=== PATIENT | male | born 1965 | race Caucasian/White ===

== ENCOUNTER → 2017-03-09 | Outpatient (CLI) | payer BC ==
--- NOTE | 2017-03-10 09:02 | CONS ---
DATE OF CONSULTATION: This 52-year-old male patient was initially referred to Dr. Tillman for loud snoring. The patient had upper ENT evaluation, was asked to take Flonase for nasal congestion and rhinitis. He was asked to stop Afrin as the patient was using it frequently. No other upper airway abnormality was noted and the patient was referred to me. On today's evaluation, the patient reports loud snoring that is non-positional. On a few occasions, he was told he stopped breathing at night, yet he does not wake up any major hypersomnia or sleepiness during the day. He has excessive teeth grinding and he wears a bite splint. He goes to bed around midnight, wakes up between 5 to 6 a.m. in the morning. On weekends, he wakes up at around 8 a.m. No family history of obstructive sleep apnea, no major hypersomnia or sleepiness during the day. No anxiety or panic attacks. No palpitations. No heartburn. No restlessness in the lower extremities. No sleepwalking or sleeptalking. No parasomnias. [place] score is at 6. PAST MEDICAL HISTORY: Seasonal rhinitis. Past surgical history is negative. Drug allergies are not known. Outpatient medication include ( ) on a p.r.n. basis. SOCIAL HISTORY: No smoking, no history of alcohol, no history of IV drugs. The patient has a desk job. No falling asleep while doing his day-to-day activities at work. FAMILY HISTORY: Negative for sleep apnea. REVIEW OF SYSTEMS: A 12-point review of systems was done. Positive findings were all mentioned above in the history of present illness. No insomnia. No nocturnal choking or gasping for air. No nocturia. No ( ) urgency. No memory problems, no concentration problems, no anxiety, no claustrophobia. No sexual dysfunction. BP is 138/90, pulse 54, respirations 14, temperature 97.9, saturation is 98% on room air. Weight is 179. Height 68 inches. Neck size 17 inches. [place] score is 6. BMI is 27.2. GENERAL APPEARANCE: Calm, comfortable. HEENT: Negative for JVD. There is no goiter, neck masses. Patient has a Mallampati class IV with slight overbite. LUNGS: Clear to auscultation. HEART: Sounds are regular rate and rhythm. Normal S1, S2. No S3. No S4. No murmurs. ABDOMEN: Soft and nontender. No organomegaly. EXTREMITIES: No edema. No cyanosis or clubbing. IMPRESSION: 1. Loud snoring. 2. Allergic rhinitis. 3. Questionable sleep apnea. PLAN: 1. Encourage using Flonase and Claritin on an as-needed basis regarding his symptoms of rhinitis. 2. Avoid alcoholic beverages at nighttime. 3. Sleep with head of the bed elevated at 30 degrees on the side. 4. Avoid sleep deprivation. 5. Proceed with a home sleep study looking for any significant sleep breathing disorder that may be in association with his snoring. 6. Will make treatment arrangements if obstructive sleep apnea is identified in this patient. He is interested in treatment at this point, especially if he was found to be having a positive test.
== END | disposition home or self-care (01) ==
LOC: SLEEP 13:54
PROVIDERS: ATTEND Internal Medicine Critical Care Medicine
DX: R06.83 Snoring (principal); J30.9 Allergic rhinitis, unspecified
CPT/HCPCS: 99211

== ENCOUNTER 2021-04-25 09:51 | Day surgery (SDC) | payer BC ==
[2021-04-24 08:46] VITALS: BMI 27.3
[~2021-04-25 09:51] MED LIST: LACTATED RINGERS 1,000 ML IV SCH
[2021-04-25 10:22] VITALS: TEMP 97.2
[2021-04-25] MEDS ORDERED: PROPOFOL 10 MG/ML 20 ML VIAL IV ONE (11:00)
--- NOTE | 2021-04-25 11:18 | P.PCN ---
Date of Procedure: 04/25/21 Procedure(s) Performed: BRIEF HISTORY: Patient is a 56-year-old pleasant male scheduled for an elective colonoscopy as a part of screening for colorectal neoplasia. PROCEDURE PERFORMED: Colonoscopy with snare polypectomy. PREOPERATIVE DIAGNOSIS: Screening for colon cancer. IV sedation per Anesthesia. PROCEDURE: After informed consent was obtained, the patient, was brought into the endoscopy unit. IV sedation was administered by Anesthesia under continuous monitoring. Digital rectal examination was normal. Initially the Olympus CF-160 flexible video colonoscope was then inserted in the rectum, gradually advanced into the cecum without any difficulty. Careful examination was performed as the scope was gradually being withdrawn. Ileocecal valve and the appendiceal orifice were visualized and appeared normal. Prep was excellent. Mucosa of the cecum, appeared normal. In the ascending colon there was a 5 mm flat polyp removed by snare polypectomy. In the hepatic flexure there was a 1 cm broad-based polyp removed by snare polypectomy. Rest of the ascending colon, transverse colon, descending colon, sigmoid colon, and rectum appeared normal. Retroflexion was performed in the rectum and no lesions were seen. The patient tolerated the procedure well. IMPRESSION: 1 cm broad-based based hepatic flexure polyp status post polypectomy 5 mm ascending colon polyp status post polypectomy RECOMMENDATIONS: Findings of this examination were discussed with the patient surveillance his family. He was advised to follow with the biopsy results and if the biopsy shows an adenoma he can have a repeat colonoscopy in 3-5 years
[2021-04-25 11:33] VITALS: BP 142/89; PULSE 61; RESP 17
== END 2021-04-25 11:49 | disposition home or self-care (01) ==
LOC: ORWHC2ENDO 09:51
PROVIDERS: ATTEND Internal Medicine Gastroenterology
DX: Z12.11 Encounter for screening for malignant neoplasm of colon (principal); D12.2 Benign neoplasm of ascending colon; D12.3 Benign neoplasm of transverse colon; I10 Essential (primary) hypertension; Z79.899 Other long term (current) drug therapy
CPT/HCPCS: 88305; 45385; J2704

== ENCOUNTER 2021-12-17 14:58 | Inpatient (IN) | payer BC ==
[2021-12-17] MEDS ORDERED: diphenhydrAMINE 50 MG/ML 1 ML VIAL IVP STA (15:20)
[2021-12-17] MEDS ORDERED: MORPHINE SULFATE 4 MG/ML SYRINGE IV STA (15:20)
[2021-12-17] MEDS ORDERED: ONDANSETRON 4 MG/2 ML VIAL IVP STA (15:20)
[2021-12-17] MEDS ORDERED: ASPIRIN 81 MG PO STA (15:20)
[2021-12-17] MEDS ORDERED: SODIUM CHLORIDE 0.9% 1,000 ML IV STA (15:20)
[2021-12-17] MEDS ORDERED: MAG HYDROX/AL HYDROX/SIMETH 30 ML CUP PO STA (15:21)
[2021-12-17] MEDS ORDERED: FAMOTIDINE 20 MG/2 ML VIAL IV STA (15:21)
--- NOTE | 2021-12-17 15:34 | ED ---
General Adult HPI - General Chief complaint: Chest Pain Stated complaint: chest pain Time Seen by Provider: 12/17/21 15:05 Source: patient, RN notes reviewed, old records reviewed Mode of arrival: ambulatory Limitations: no limitations - History of Present Illness Initial comments: Patient's a 56-year-old male with past medical history remarkable for hy pertension who presents to emergency Department complaining of recurrence of epigastric abdominal pain and inferior substernal chest pain over the last 1-2 days. Also states he believes he may be constipated. States it somewhat symptoms last week and was admitted overnight Wednesday and Wednesday (it is currently Wednesday) and outside hospital where he received a heart catheter was cleaned. There were no blockages. No intervention was done. He said "they told me I did not have a heart attack.". He states that when he was discharged from the hospital, he was completely symptomatic, however over the last 1-2 days has been having worsening epigastric abdominal discomfort, is complaining of s ome constipation, and states that the pain radiates just above his epigastric area to his inferior sternum. He does not believe that it radiates to the left. Describes the pain as sharp, achy. No known palliative factors. States it is worse with laying down. Denies any shortness of breath, cough, fevers, chills. States he is constipated, was taking some stool softeners and had a bowel moveme nt 2 days ago. It was a smaller area and quantity. He has been eating. No change in appetite. No abdominal discomfort otherwise. Denies any history of drinking drug abuse. Denies any urinary complaints. Has no other acute complaints at this time. - Related Data Home Medications Medication Instructions Recorded Confirmed amLODIPine [Norvasc] 5 mg PO HS 04/24/21 12/17/21 Aspirin 81 mg PO DAILY 12/17/21 12/17/21 Atorvastatin [Lipitor] 80 mg PO HS 12/17/21 12/17/21 Nitroglycerin Sl Tabs [Nitrostat] 0.4 mg SUBLINGUAL Q5M PRN 12/17/21 12/17/21 Polyethylene Glycol 3350 [Miralax] 17 gm PO DAILY 12/17/21 12/17/21 Allergies Allergy/AdvReac Type Severity Reaction Status Date / Time No Known Allergies Allergy Verified 02/02/22 16:29 Review of Systems ROS Statement: Those systems with pertinent positive or pertinent negative responses have been documented in the HPI. Review of Systems: CONST: Denies fever EYES: Denies blurry vision ENT: Denies nasal congestion C/V: Endorses chest pain RESP: Denies shortness of breath GI: Endorses abdominal pain : Denies dysuria SKIN: Denies rash. MSK: Denies joint pain. NEURO: Denies headache ROS Other: All systems not noted in ROS Statement are negative. Past Medical History Past Medical History: Hypertension Additional Past Medical History / Comment(s): seasonal allergies History of Any Multi-Drug Resistant Organisms: None Reported Past Surgical History: Heart Catheterization, Hernia Repair Past Anesthesia/Blood Transfusion Reactions: No Reported Reaction Past Psychological History: No Psychological Hx Reported Smoking Status: Never smoker Past Alcohol Use History: Occasional Past Drug Use History: None Reported General Exam - General Exam Comments Initial Comments: General: Appears in no acute distress. HEAD: Normal with no signs of head trauma. EYES: PERRLA, EOMI, conjunctiva normal, no discharge. Mild scleral icterus. ENT: Hearing grossly intact, normal oropharynx. RESPIRATORY: Clear breath sounds bilaterally. No wheezes, rales, or rhonchi. C/V: Regular rate and rhythm. S1 and S2 auscultated, no edema, peripheral pulses 2+ and intact throughout ABD: Abdomen is soft, nondistended. Patient has epigastric and RUQ abdominal pain on palpation. It does radiate substernally. No guarding. No rebound tenderness. No peritoneal signs. No CVA tenderness to percussion. EXT: Normal range of motion, no obvious deformity SKIN: No rashes or lesions observed on exposed skin. NEURO: Alert and oriented 4. No focal deficits. Limitations: no limitations Course Vital Signs 12/17/21 12/17/21 12/17/21 14:59 16:03 16:43 Temperature 97.6 F Pulse Rate 70 73 Pulse Rate [ 76 Sitting Pulse Oximetery] Respiratory 18 18 Rate Blood Pressure 149/93 126/83 O2 Sat by Pulse 98 99 Oximetry Medical Decision Making - Medical Decision Making Based on the patient's presentation and physical exam, I'm concerned regarding his chest pain. However he does have paperwork with the cleaning cardiac cath report from 5 days ago. Despite the EKG findings showing a left bundle branch block, there is unknown chronicity. His pain seems to primarily be epigastric in nature. With a history of the cleaning cath, I'll wait to obtain one work prior to calling cardiology. We will attempt to obtain a copy of his EKG from the outside hospital at this time. We'll also obtain an abdominal laboratory workup including CT and pelvis with contrast. He was in agreement this plan. Upon examining his notes, he did receive a colonoscopy middle of last year and it showed adenomas. I would like to obtain a CT abdomen and pelvis to further evaluate. He'll be symptomatically treated with 1 L fluid bolus as well as IV analgesia. He'll receive an aspirin. Patient was in agreement this plan.The patient's pain seems to be more epigastric abdominal pain in nature. Do not believe that it is chest pain. Patient's EKG revealed a left bundle-branch block as described. He has to recent clean cardiac cath 5 days ago. We did obtain a repeat EKG however an hour later, but was unchanged. Chest x-ray revealed no acute cardio pulmonary process. Laboratory studies were remarkable for a mild leukocytosis of 12. She does have signs of biliary obstruction, with total bilirubin of 3.1. Conjugated is 0.7 and unconjugated is 1.5, both elevated. He is mildly elevated AST and ALT of 120 300 respectively. Alk phos is elevated to 156. Initial troponin is negative and undetectable. Remainder the labs are unremarkable. Negative bilirubin in his urine. Patient's CT was remarkable for showing signs of colitis in the bowel as well as acute cholecystitis. Right upper quadrant ultrasound supported the CT imaging, suggestive of acute cholecystitis with multiple gallstones and wall thickening gallbladder. Ducts are not dilated. On reevaluation, patient's pain is improved. Is now isolated to the epigastric and right upper quadrant region. I discussed results with remaining extremity like to admit him to the hospital for further evaluation. He was in agreement this plan. I spoke with the admitting team under Dr. Marks who accepted the patient. I consulted Dr. Short of gastroenterology who is in agreement with the plan. I also consulted Dr. Haney of Gen. surgery who was in agreement with the plan. Blood cultures were obtained and patient was started on IV Flagyl and Ruben ephin. Patient was therefore admitted in stable condition. - Lab Data Result diagrams: 12/17/21 15:32 12/17/21 15:32 Lab Results 12/17/21 12/17/21 12/17/21 Range/Units 15:32 15:32 15:32 WBC 12.0 H (3.8-10.6) k/uL RBC 4.82 (4.30-5.90) m/uL Hgb 14.1 (13.0-17.5) gm/dL Hct 43.2 (39.0-53.0) % MCV 89.6 (80.0-100.0) fL MCH 29.3 (25.0-35.0) pg MCHC 32.7 (31.0-37.0) g/dL RDW 12.1 (11.5-15.5) % Plt Count 290 (150-450) k/uL MPV 7.5 Neutrophils % 88 % Lymphocytes % 7 % Monocytes % 4 % Eosinophils % 1 % Basophils % 0 % Neutrophils # 10.6 H (1.3-7.7) k/uL Lymphocytes # 0.8 L (1.0-4.8) k/uL Monocytes # 0.5 (0-1.0) k/uL Eosinophils # 0.1 (0-0.7) k/uL Basophils # 0.0 (0-0.2) k/uL PT 10.0 (9.0-12.0) sec INR 0.9 (<1.2) APTT 24.0 (22.0-30.0) sec Sodium 136 L (137-145) mmol/L Potassium 5.1 (3.5-5.1) mmol/L Chloride 100 (98-107) mmol/L Carbon Dioxide 27 (22-30) mmol/L Anion Gap 9 mmol/L BUN 16 (9-20) mg/dL Creatinine 0.76 (0.66-1.25) mg/dL Est GFR (CKD-EPI)AfAm >90 (>60 ml/min/1.73 sqM) Est GFR (CKD-EPI)NonAf >90 (>60 ml/min/1.73 sqM) Glucose 137 H (74-99) mg/dL Calcium 9.4 (8.4-10.2) mg/dL Magnesium 2.2 (1.6-2.3) mg/dL Total Bilirubin 3.1 H (0.2-1.3) mg/dL Conjugated Bilirubin (0.0-0.3) mg/dL Unconjugated Bilirubin (0.0-1.1) mg/dL Delta Bilirubin (0.0-0.2) mg/dL AST 123 H (17-59) U/L ALT 100 H (4-49) U/L Alkaline Phosphatase 156 H (38-126) U/L Troponin I (0.000-0.034) ng/mL Total Protein 7.6 (6.3-8.2) g/dL Albumin 4.4 (3.5-5.0) g/dL Amylase 57 (30-110) U/L Lipase 101 (23-300) U/L Urine Color Urine Appearance (Clear) Urine pH (5.0-8.0) Ur Specific [place] (1.001-1.035) Urine Protein (Negative) Urine Glucose (UA) (Negative) Urine Ketones (Negative) Urine Blood (Negative) Urine Nitrite (Negative) Urine Bilirubin (Negative) Urine Urobilinogen (<2.0) mg/dL Ur Leukocyte Esterase (Negative) 12/17/21 12/17/21 12/17/21 Range/Units 15:32 15:32 16:24 WBC (3.8-10.6) k/uL RBC (4.30-5.90) m/uL Hgb (13.0-17.5) gm/dL Hct (39.0-53.0) % MCV (80.0-100.0) fL MCH (25.0-35.0) pg MCHC (31.0-37.0) g/dL RDW (11.5-15.5) % Plt Count (150-450) k/uL MPV Neutrophils % % Lymphocytes % % Monocytes % % Eosinophils % % Basophils % % Neutrophils # (1.3-7.7) k/uL Lymphocytes # (1.0-4.8) k/uL Monocytes # (0-1.0) k/uL Eosinophils # (0-0.7) k/uL Basophils # (0-0.2) k/uL PT (9.0-12.0) sec INR (<1.2) APTT (22.0-30.0) sec Sodium (137-145) mmol/L Potassium (3.5-5.1) mmol/L Chloride (98-107) mmol/L Carbon Dioxide (22-30) mmol/L Anion Gap mmol/L BUN (9-20) mg/dL Creatinine (0.66-1.25) mg/dL Est GFR (CKD-EPI)AfAm (>60 ml/min/1.73 sqM) Est GFR (CKD-EPI)NonAf (>60 ml/min/1.73 sqM) Glucose (74-99) mg/dL Calcium (8.4-10.2) mg/dL Magnesium (1.6-2.3) mg/dL Total Bilirubin 3.1 H (0.2-1.3) mg/dL Conjugated Bilirubin 0.7 H (0.0-0.3) mg/dL Unconjugated Bilirubin 1.5 H (0.0-1.1) mg/dL Delta Bilirubin 0.9 H (0.0-0.2) mg/dL AST (17-59) U/L ALT (4-49) U/L Alkaline Phosphatase (38-126) U/L Troponin I <0.012 (0.000-0.034) ng/mL Total Protein (6.3-8.2) g/dL Albumin (3.5-5.0) g/dL Amylase (30-110) U/L Lipase (23-300) U/L Urine Color Yellow Urine Appearance Clear (Clear) Urine pH 6.0 (5.0-8.0) Ur Specific [place] 1.022 (1.001-1.035) Urine Protein Trace H (Negative) Urine Glucose (UA) Negative (Negative) Urine Ketones Negative (Negative) Urine Blood Negative (Negative) Urine Nitrite Negative (Negative) Urine Bilirubin Negative (Negative) Urine Urobilinogen <2.0 (<2.0) mg/dL Ur Leukocyte Esterase Negative (Negative) - EKG Data -: EKG Interpreted by Me EKG Comments: 12-lead Electrocardiogram Interpretation Note EKG was reviewed and interpreted by myself. 12-lead ECG performed at 1512 is interpreted by me as revealing normal sinus rhythm with a left bundle branch block at a rate of 63 beats per minute. Pinnacle is normal. IN interval is 176 ms, QRS duration is 172 ms, QTc is 501 ms.. There is left bundle branch block pathology, with J-point elevations in V1 and V2 and V3. There are T-wave inversions in lead aVL.. R wave progression across the precordium is delayed. By my interpretation this EKG is non-diagnostic for acute ischemia. repeat ekg was obtained. 12-lead Electrocardiogram Interpretation Note EKG was reviewed and interpreted by myself. 12-lead ECG performed at 1640 is interpreted by me as revealing normal sinus rhythm with a left bundle branch block at a rate of 67 beats per minute. Pinnacle is normal. IN interval is 176 ms. QRS durations 168ms, QTc is 494 ms.. There are repeated J point elevations in leads V1 through V3 which are seen on the prior EKG without any dynamic EKG changes.. R wave progression across the precordium remains delayed.. By my interpretation this EKG is non-diagnostic for acute ischemia. Disposition Clinical Impression: Hyperbilirubinemia, Cholecystitis, Nausea and vomiting Disposition: ADMITTED IP TO THIS HOSP Condition: Stable
[2021-12-17 15:41] LABS: Basophils % (A) 0 %; Eosinophils # (A) 0.1 k/uL (0-0.7); Eosinophils % (A) 1 %; HCT 43.2 % (39.0-53.0); HGB 14.1 gm/dL (13.0-17.5); Lymphocytes # (A) 0.8 k/uL (1.0-4.8); Lymphocytes % (A) 7 %; MCH 29.3 pg (25.0-35.0); MCHC 32.7 g/dL (31.0-37.0); MCV 89.6 fL (80.0-100.0); Mean Platelet Volume 7.5; Monocytes # (A) 0.5 k/uL (0-1.0); Monocytes % (A) 4 %; Neutrophils # (A) 10.6 k/uL (1.3-7.7); Neutrophils % (A) 88 %; Platelet Count 290 k/uL (150-450); RBC 4.82 m/uL (4.30-5.90); RDW 12.1 % (11.5-15.5)
[2021-12-17 15:53] LABS: ALT 100 U/L (4-49); AST 123 U/L (17-59); African American GFR (CKD) >90 (>60 ml/min/1.73 sqM); Albumin 4.4 g/dL (3.5-5.0); Alkaline Phosphatase 156 U/L (38-126); Amylase 57 U/L (30-110); Anion Gap 9 mmol/L; Blood Urea Nitrogen 16 mg/dL (9-20); Calcium 9.4 mg/dL (8.4-10.2); Carbon Dioxide 27 mmol/L (22-30); Chloride 100 mmol/L (98-107); Glucose 137 mg/dL (74-99); Lipase 101 U/L (23-300); Magnesium 2.2 mg/dL (1.6-2.3); Non-African American GFR(CKD) >90 (>60 ml/min/1.73 sqM); Sodium 136 mmol/L (137-145); Total Bilirubin 3.1 mg/dL (0.2-1.3); Total Protein 7.6 g/dL (6.3-8.2)
[2021-12-17 15:54] LABS: Potassium 5.1 mmol/L (3.5-5.1)
[2021-12-17 15:57] LABS: INR 0.9 (<1.2)
[2021-12-17 16:07] LABS: Appearance,Urine Clear (Clear); Bilirubin,Urine Negative (Negative); Blood,Urine Negative (Negative); Color,Urine Yellow; Glucose,Urine (UA) Negative (Negative); Ketones,Urine Negative (Negative); Leukocyte Esterase,Urine Negative (Negative); Nitrite,Urine Negative (Negative); Protein,Urine Trace (Negative); Specific Gravity,Urine 1.022 (1.001-1.035); Urobilinogen,Urine <2.0 mg/dL (<2.0)
[2021-12-17 16:37] LABS: Bilirubin, Conjugated 0.7 mg/dL (0.0-0.3); Bilirubin, Delta 0.9 mg/dL (0.0-0.2); Bilirubin,Unconjugated 1.5 mg/dL (0.0-1.1); Total Bilirubin 3.1 mg/dL (0.2-1.3)
--- NOTE | 2021-12-17 16:37 | CT ---
EXAMINATION TYPE: CT abdomen pelvis w con DATE OF EXAM: 12/17/2021 COMPARISON: NONE HISTORY: 56-year-old male abdominal pain, acute, nonlocalized. Epigastric pain. TECHNIQUE: Contiguous axial scanning of the abdomen and pelvis following administration of 100 ml Iso karli 300 IV contrast. Delayed images through the kidneys and coronal/sagittal reconstructions perform ed. CT DLP: 939.9 mGycm Automated exposure control for dose reduction was used. FINDINGS: Heart limits of normal in size without pericardial effusion. Lung bases clear without pleural effusio n. No focal liver lesion or biliary ductal dilatation. Portal venous system is patent. Gallbladder is borderline hydropic measuring 4.0 cm wide. There may be mild wall thickening. Cholelit hiasis is present. No surrounding inflammatory fat stranding. Adrenal glands, kidneys, spleen, and pancreas within normal limits. There appears to be some distortion and wall thickening along the gastric body with mucosal hyperemia . Prominent fluid in the stomach and left-sided jejunal loops some of which are distended to the uppe r limits of normal at 2.9 cm. Duodenum contains fluid and is distended to 3.4 cm, coronal image 49. Scattered liquid stool within the left side of the colon. Mild stool within the right side of the col on. Normal appendix. Segmental mild wall thickening sigmoid colon. Tiny fatty umbilical hernia. No mesenteric or retroperitoneal lymphadenopathy. No free air or free fluid. Mild circumferential bladder wall thickening. Prostate gland measures 4.4 cm wide, mildly enlarged. N o abnormal fluid collection in the pelvis or pelvic lymphadenopathy. Bones: Mild degenerative change of both hips. Facet arthropathy mid to lower lumbar spine. IMPRESSION: 1. FOLD THICKENING AND HYPEREMIA AND SOME DISTORTION ALONG THE BODY OF THE STOMACH. NUMEROUS PROMINEN T FLUID-FILLED SMALL BOWEL LOOPS THROUGHOUT THE LEFT SIDE OF THE ABDOMEN WITH DISTENTION UP TO 3.4 CM . CORRELATE FOR GASTROENTERITIS. 2. SOME LIQUID STOOL IN THE LEFT SIDE OF THE COLON AND MILD SEGMENTAL WALL THICKENING OF THE SIGMOID COLON. THERE MAY BE A CONCURRENT MILD NONSPECIFIC COLITIS. 3. BORDERLINE HYDROPIC GALLBLADDER WITH POSSIBLE MILD WALL THICKENING. UNDERLYING CHOLELITHIASIS. IF THERE IS RIGHT UPPER QUADRANT PAIN OR CONCERN FOR EARLY ACUTE CHOLECYSTITIS, HIDA SCAN CAN BE PERFORM ED. 4. MILD CIRCUMFERENTIAL BLADDER WALL THICKENING COULD REPRESENT CHRONIC BLADDER WALL HYPERTROPHY OR C YSTITIS. CLINICALLY CORRELATE.
[2021-12-17] MEDS ORDERED: metroNIDAZOLE-NS PMX 500 MG in SALINE 1 100ML.BAG IVPB STA (16:48)
--- NOTE | 2021-12-17 16:51 | XR ---
EXAMINATION TYPE: XR chest 2V DATE OF EXAM: 12/17/2021 COMPARISON: NONE HISTORY: Chest pain TECHNIQUE: 2 views FINDINGS: Heart and mediastinum are normal. Lungs are clear. Diaphragm is normal. Bony thorax appears normal. There are chest leads. IMPRESSION: Normal chest.
[2021-12-17] MEDS ORDERED: NALOXONE 0.4 MG/ML 1 ML VIAL IV PRN (16:58)
[2021-12-17] MEDS ORDERED: ONDANSETRON 4 MG/2 ML VIAL IVP PRN (16:58)
[2021-12-17] MEDS ORDERED: KETOROLAC 15 MG/ML 1 ML VIAL IVP PRN (16:58)
--- NOTE | 2021-12-17 17:18 | US ---
EXAMINATION TYPE: US gallbladder DATE OF EXAM: 12/17/2021 COMPARISON: CT same day CLINICAL HISTORY: RUQ pain, nausea. RUQ pain and nausea EXAM MEASUREMENTS: Liver Length: 16.8 cm Gallbladder Wall: 0.2 cm CBD: 0.4 cm Right Kidney: 11.7 x 5.6 x 6.2 cm Pancreas: visualized portions wnl, limited by overlying midline bowel gas Liver: wnl Gallbladder: borderline hydropic, cholelithiasis Evidence for sonographic Aparicio's sign: no CBD: wnl Right Kidney: wnl IMPRESSION: Mild gallbladder wall thickening. Multiple gallstones. This is consistent with acute and chronic chol ecystitis. Gallbladder large and measures 9 x 3.5 cm. No dilated ducts.
[2021-12-17] MEDS: SODIUM CHLORIDE 0.9% 1,000 ML IV SCH (17:45)
[2021-12-17] MEDS: amLODIPine 5 MG TAB PO SCH (20:24)
[2021-12-17] MEDS ORDERED: ATORVASTATIN 80 MG TAB PO SCH (21:00)
[2021-12-18] MEDS: HEPARIN SODIUM,PORCINE/PF 5,000 UNIT/0.5 ML SYRINGE SQ SCH ×5 (00:33→23:59)
[2021-12-18] MEDS: metroNIDAZOLE-NS PMX 500 MG in SALINE 1 100ML.BAG IVPB SCH ×4 (02:19→23:59)
[2021-12-18] MEDS: KETOROLAC 30 MG/ML 1 ML VIAL IVP PRN ×3 (02:35→18:20)
[2021-12-18 04:00] LABS: Basophils % (A) 0 %; Eosinophils # (A) 0.1 k/uL (0-0.7); Eosinophils % (A) 1 %; HCT 41.2 % (39.0-53.0); HGB 13.4 gm/dL (13.0-17.5); Lymphocytes # (A) 1.2 k/uL (1.0-4.8); Lymphocytes % (A) 14 %; MCH 29.5 pg (25.0-35.0); MCHC 32.4 g/dL (31.0-37.0); MCV 91.1 fL (80.0-100.0); Mean Platelet Volume 7.5; Monocytes # (A) 0.8 k/uL (0-1.0); Monocytes % (A) 10 %; Neutrophils # (A) 6.2 k/uL (1.3-7.7); Neutrophils % (A) 74 %; Platelet Count 255 k/uL (150-450); RBC 4.53 m/uL (4.30-5.90); RDW 12.3 % (11.5-15.5); WBC 8.4 k/uL (3.8-10.6)
[2021-12-18 04:14] LABS: ALT 135 U/L (4-49); AST 127 U/L (17-59); African American GFR (CKD) >90 (>60 ml/min/1.73 sqM); Albumin 3.5 g/dL (3.5-5.0); Albumin/Globulin Ratio 1.3; Alkaline Phosphatase 170 U/L (38-126); Anion Gap 4 mmol/L; Blood Urea Nitrogen 11 mg/dL (9-20); Calcium 8.6 mg/dL (8.4-10.2); Carbon Dioxide 27 mmol/L (22-30); Chloride 106 mmol/L (98-107); Globulin 2.8 g/dL; Glucose 114 mg/dL (74-99); Non-African American GFR(CKD) >90 (>60 ml/min/1.73 sqM); Potassium 3.9 mmol/L (3.5-5.1); Sodium 137 mmol/L (137-145); Total Bilirubin 3.7 mg/dL (0.2-1.3); Total Protein 6.3 g/dL (6.3-8.2)
[2021-12-18] MEDS: SODIUM CHLORIDE 0.9% 1,000 ML IV SCH ×3 (05:08→20:06)
[2021-12-18] MEDS: ASPIRIN 81 MG PO SCH (07:20)
[2021-12-18 10:05] LABS: Amylase 65 U/L (30-110); Lipase 229 U/L (23-300)
--- NOTE | 2021-12-18 11:56 | P.GSCN ---
History of Present Illness Consult date: 12/18/21 History of present illness: 56-year-old male presents to the emergency department with complaints of severe epigastric and right upper quadrant abdominal pain. He states that this has been going on and off for about a week. Previously, approximately 1 week ago he was in [facility] and did have an admission at that time. He states that he had a full cardiac workup with cardiac catheterization and no acute findings were noted. He was discharged with plan to follow up with his primary care physician. He states that since that time, he began having additional di scomfort. On workup in the emergency department, he was found to have elevated bilirubin 3.1 that has since further elevated to 3.7. He also was noted to have cholelithiasis on both CT and ultrasound of the abdomen. He currently denies any nausea or vomiting. States abdominal pain has somewhat improved since being admitted. No fevers, chills, chest pain or shortness of breath. Past Medical History Past Medical History: Hypertension Additional Past Medical History / Comment(s): seasonal allergies History of Any Multi-Drug Resistant Organisms: None Reported Past Surgical History: Heart Catheterization, Hernia Repair Past Anesthesia/Blood Transfusion Reactions: No Reported Reaction Past Psychological History: No Psychological Hx Reported Smoking Status: Never smoker Past Alcohol Use History: Occasional Past Drug Use History: None Reported Medications and Allergies Home Medications Medication Instructions Recorded Confirmed Type amLODIPine [Norvasc] 5 mg PO HS 04/24/21 12/17/21 History Aspirin 81 mg PO DAILY 12/17/21 12/17/21 History Atorvastatin [Lipitor] 80 mg PO HS 12/17/21 12/17/21 History Nitroglycerin Sl Tabs [Nitrostat] 0.4 mg SUBLINGUAL Q5M PRN 12/17/21 12/17/21 History Polyethylene Glycol 3350 [Miralax] 17 gm PO DAILY 12/17/21 12/17/21 History Allergies Allergy/AdvReac Type Severity Reaction Status Date / Time No Known Allergies Allergy Verified 12/17/21 16:29 Surgical - Exam Osteopathic Statement: *. No significant issues noted on an osteopathic structural exam other than those noted in the History and Physical/Consult. Vital Signs Temp Pulse Resp BP Pulse Ox 97.6 F 70 18 149/93 98 12/17/21 14:59 12/17/21 14:59 12/17/21 14:59 12/17/21 14:59 12/17/21 14:59 - General no distress - Eyes normal ocular movement - ENT no hearing loss - Neck trachea midline - Respiratory normal respiratory effort - Abdomen Soft, some mild tenderness to palpation in the right upper quadrant, non distended, no rebound, guarding - Psychiatric oriented to time, oriented to person, oriented to place Results - Labs 12/18/21 03:39 12/18/21 03:39 Abnormal Lab Results - Last 24 Hours (Table) 12/17/21 12/17/21 12/17/21 Range/Units 15:32 15:32 15:32 WBC 12.0 H (3.8-10.6) k/uL Neutrophils # 10.6 H (1.3-7.7) k/uL Lymphocytes # 0.8 L (1.0-4.8) k/uL Sodium 136 L (137-145) mmol/L Glucose 137 H (74-99) mg/dL Total Bilirubin 3.1 H (0.2-1.3) mg/dL Conjugated Bilirubin (0.0-0.3) mg/dL Unconjugated Bilirubin (0.0-1.1) mg/dL Delta Bilirubin (0.0-0.2) mg/dL AST 123 H (17-59) U/L ALT 100 H (4-49) U/L Alkaline Phosphatase 156 H (38-126) U/L Urine Protein Trace H (Negative) 12/17/21 12/18/21 Range/Units 16:24 03:39 WBC (3.8-10.6) k/uL Neutrophils # (1.3-7.7) k/uL Lymphocytes # (1.0-4.8) k/uL Sodium (137-145) mmol/L Glucose 114 H (74-99) mg/dL Total Bilirubin 3.1 H 3.7 H (0.2-1.3) mg/dL Conjugated Bilirubin 0.7 H (0.0-0.3) mg/dL Unconjugated Bilirubin 1.5 H (0.0-1.1) mg/dL Delta Bilirubin 0.9 H (0.0-0.2) mg/dL AST 127 H (17-59) U/L ALT 135 H (4-49) U/L Alkaline Phosphatase 170 H (38-126) U/L Urine Protein (Negative) Diabetes panel 12/17/21 12/18/21 Range/Units 15:32 03:39 Sodium 136 L 137 (137-145) mmol/L Potassium 5.1 3.9 (3.5-5.1) mmol/L Chloride 100 106 (98-107) mmol/L Carbon Dioxide 27 27 (22-30) mmol/L BUN 16 11 (9-20) mg/dL Creatinine 0.76 0.75 (0.66-1.25) mg/dL Glucose 137 H 114 H (74-99) mg/dL Calcium 9.4 8.6 (8.4-10.2) mg/dL AST 123 H 127 H (17-59) U/L ALT 100 H 135 H (4-49) U/L Alkaline Phosphatase 156 H 170 H (38-126) U/L Total Protein 7.6 6.3 (6.3-8.2) g/dL Albumin 4.4 3.5 (3.5-5.0) g/dL Calcium panel 12/17/21 12/18/21 Range/Units 15:32 03:39 Calcium 9.4 8.6 (8.4-10.2) mg/dL Albumin 4.4 3.5 (3.5-5.0) g/dL Pituitary panel 12/17/21 12/18/21 Range/Units 15:32 03:39 Sodium 136 L 137 (137-145) mmol/L Potassium 5.1 3.9 (3.5-5.1) mmol/L Chloride 100 106 (98-107) mmol/L Carbon Dioxide 27 27 (22-30) mmol/L BUN 16 11 (9-20) mg/dL Creatinine 0.76 0.75 (0.66-1.25) mg/dL Glucose 137 H 114 H (74-99) mg/dL Calcium 9.4 8.6 (8.4-10.2) mg/dL Adrenal panel 12/17/21 12/17/21 12/18/21 Range/Units 15:32 16:24 03:39 Sodium 136 L 137 (137-145) mmol/L Potassium 5.1 3.9 (3.5-5.1) mmol/L Chloride 100 106 (98-107) mmol/L Carbon Dioxide 27 27 (22-30) mmol/L BUN 16 11 (9-20) mg/dL Creatinine 0.76 0.75 (0.66-1.25) mg/dL Glucose 137 H 114 H (74-99) mg/dL Calcium 9.4 8.6 (8.4-10.2) mg/dL Total Bilirubin 3.1 H 3.1 H 3.7 H (0.2-1.3) mg/dL AST 123 H 127 H (17-59) U/L ALT 100 H 135 H (4-49) U/L Alkaline Phosphatase 156 H 170 H (38-126) U/L Total Protein 7.6 6.3 (6.3-8.2) g/dL Albumin 4.4 3.5 (3.5-5.0) g/dL Assessment and Plan Plan: 56-year-old male with cholelithiasis, concern for cholecystitis and possibility of choledocholithiasis. Bilirubin is elevated from 3.1-3.7 today. Gastroenterology consult has been placed and MRCP is pending at this time. I would recommend keeping the patient nothing by mouth and continuing IV antibiotics for cholecystitis. Based on workup for choledocholithiasis, plan of care will be determined. We'll continue to follow and make surgical recommendations based on the patient's critical progress and findings from MRCP.
[2021-12-18] MEDS ORDERED: ACETAMINOPHEN TAB 325 MG TAB PO PRN (13:19)
--- NOTE | 2021-12-18 13:27 | P.HPIM ---
History of Present Illness H&P Date: 12/18/21 History of present illness 56 years old male with past medical history of hyperlipidemia, h ypertension comes in with significant epigastric pain for the past 1 week. Patient was admitted at [facility] [place] for chest pain 1 week ago. Patient underwent heart cath which is normal. He continued to have abdominal pain which was initially epigastric but then radiated to the right upper quadrant pain. Patient denies any nausea or vomiting. He has noticed his urine to be dark yellow and his eyes turning yellow. Since the pain did not improve patient decided to come to the hospital to vitals are reviewed patient's afebrile pulse 70 respiratory rate 18 blood pressure 149/93. EKG revealed only had left bundle branch block that appeared chronic. Labs reviewed patient was found to have mild leukocytosis hemoglobin of 14 sodium 136 potassium 5.1 BUN 16 creatinine 0.76 total bilirubin of 3.1 conjugated 0.7 unconjugated 1.5 AST ALT mildly elevated at 120 and 300 respectively alk phos is elevated at 156. CT abdomen and pelvis suggestive of arm fluid-filled small bowel loops throughout the left side of the stomach concerning for gastroenteritis. Mild colitis. Gal lbladder appeared hypertropic with no wall thickening and possible underlying cholelithiasis and cholecystitis. Ultrasound of the gallbladder was obtained, multiple gallstones, acute and chronic cholecystitis with gallbladder appeared large 9 X 3.5 centimeters. No dilated ducts noted. Vision and patient on Rocephin and Flagyl. We'll continue the same antibiotic at this point. Surgery and gastroenterology is consulted. MRCP is ordered. Continue patient nothing by mouth ROS Constitutional: Denies chills, Denies fever, Denies lethargy, Denies malaise, Denies poor appetite, Denies weakness, Denies weight loss Eyes: denies decreased vision, denies diplopia, denies discharge, denies pain endorses jaundice Ears: deny: decreased hearing Ears, nose, mouth and throat: Denies dental pain, Denies headache, Denies nasal discharge, Denies nose pain Cardiovascular: Denies chest pain, Denies decreased exercise tolerance, Denies edema, Denies high blood pressure, Denies irregular heart beat, Denies palpitations, Denies paroxysmal nocturnal dyspnea, Denies rapid heart beat, Denies shortness of breath Respiratory: Denies congestion, Denies cough, Denies cough with sputum, Denies dyspnea, Denies home oxygen, Denies wheezing Gastrointestinal: endorses abdominal pain, Denies change in bowel habits, Denies coffee ground emesis, Denies early satiety, Denies excessive gas, Denies heartburn, Denies hematemesis, Denies hematochezia, Denies loss of appetite, Denies nausea, Denies vomiting Genitourinary: Denies dysuria, Denies flank pain, Denies kidney stones, Denies menorrhagia, Denies urgency, Denies urinary frequency Musculoskeletal: Denies gait dysfunction, Denies limitation of motion, Denies morning stiffness, Denies muscle cramps Integumentary: Denies rash, Denies wounds, Denies brittle nails, Denies change in hair/nails, Denies darkening of skin Neurological: Denies balance difficulties, Denies change in speech, Denies double vision, Denies gait dysfunction, Denies loss of vision, Denies motor disturbance, Denies numbness, Denies paralysis, Denies paresthesias, Denies sei zures Psychiatric: Denies anxiety, Denies depression Endocrine: Denies excessive sweating, Denies excessive thirst, Denies high blood sugars, Denies palpitations Hematologic/Lymphatic: Denies easy bruising, Denies lymphadenopathy Social history Nonsmoker drinks occasionally once every week No illicit drug use Family history Mother - no significant medical history Father hypertension 2 sister no significant medical history Physical exam - Constitutional General appearance: cooperative, no acute distress, obese - EENT Eyes: icteric sclerae, PERRLA, normal appearance ENT: hearing grossly normal - Neck Neck: no lymphadenopathy, normal ROM, no other, no rigidity, no stridor, no thyromegaly - Respiratory Respiratory: bilateral: CTA, negative: diminished, dullness, rales, rhonchi - Cardiovascular Rhythm: regular Heart sounds: normal: S1, S2 Abnormal Heart Sounds: no systolic murmur, no diastolic murmur, no rub, no S3 Gallop, no S4 Gallop, no click, no other - Gastrointestinal General gastrointestinal: normal bowel sounds, soft, tender right upper quad - Integumentary Integumentary: no rash - Neurologic Neurologic: no motor or sensory deficit - Musculoskeletal Musculoskeletal: gait normal, strength equal bilaterally - Psychiatric Psychiatric: A&O x's 3, appropriate affect Assessment and plan 1. Acute on chronic cholecystitis IV antibiotics with Rocephin and Flagyl. Gastroenterology consulted. Surgery consulted for possible cholecystectomy. Continue IV fluids at 100 mL per hour. Keep patient nothing by mouth. MRCP ordered patient may need ERCP for relieving the obstruction 2. Acute transaminitis with elevated alkaline phosphatase rule out choledochol ithiasis. MRCP ordered. Avoid Tylenol hold atorvastatin 3. Hypertension continue Norvasc at 5 mg daily at bedtime 4. Hyperlipidemia hold atorvastatin 5. Acute gastroenteritis continue Protonix at 40 mg before meals breakfast 6. CODE STATUS full code 7 DVT prophylaxis with heparin every 12 8. Disposition patient need 1-2 inpatient for stabilization Past Medical History Past Medical History: Hypertension Additional Past Medical History / Comment(s): seasonal allergies History of Any Multi-Drug Resistant Organisms: None Reported Past Surgical History: Heart Catheterization, Hernia Repair Past Anesthesia/Blood Transfusion Reactions: No Reported Reaction Past Psychological History: No Psychological Hx Reported Smoking Status: Never smoker Past Alcohol Use History: Occasional Past Drug Use History: None Reported Medications and Allergies Home Medications Medication Instructions Recorded Confirmed Type amLODIPine [Norvasc] 5 mg PO HS 04/24/21 12/17/21 History Aspirin 81 mg PO DAILY 12/17/21 12/17/21 History Atorvastatin [Lipitor] 80 mg PO HS 12/17/21 12/17/21 History Nitroglycerin Sl Tabs [Nitrostat] 0.4 mg SUBLINGUAL Q5M PRN 12/17/21 12/17/21 History Polyethylene Glycol 3350 [Miralax] 17 gm PO DAILY 12/17/21 12/17/21 History Allergies Allergy/AdvReac Type Severity Reaction Status Date / Time No Known Allergies Allergy Verified 12/17/21 16:29 Physical Exam Vitals: Vital Signs Temp Pulse Pulse Resp BP BP Pulse Ox 12/18/21 07:41 97.9 F 60 18 140/77 97 12/18/21 02:00 98.4 F 68 18 135/77 98 12/17/21 20:19 98.3 F 66 14 128/77 98 12/17/21 18:57 72 18 132/76 97 12/17/21 16:43 73 18 126/83 99 12/17/21 16:03 76 12/17/21 14:59 97.6 F 70 18 149/93 98 Intake and Output 12/17/21 12/18/2112/18/22 22:59 06:59 14:59 Other: # Voids 1 Weight 86.183 kg Results CBC & Chem 7: 12/18/21 03:39 12/18/21 03:39 Labs: Abnormal Lab Results - Last 24 Hours (Table) 12/17/21 12/17/21 12/17/21 Range/Units 15:32 15:32 15:32 WBC 12.0 H (3.8-10.6) k/uL Neutrophils # 10.6 H (1.3-7.7) k/uL Lymphocytes # 0.8 L (1.0-4.8) k/uL Sodium 136 L (137-145) mmol/L Glucose 137 H (74-99) mg/dL Total Bilirubin 3.1 H (0.2-1.3) mg/dL Conjugated Bilirubin (0.0-0.3) mg/dL Unconjugated Bilirubin (0.0-1.1) mg/dL Delta Bilirubin (0.0-0.2) mg/dL AST 123 H (17-59) U/L ALT 100 H (4-49) U/L Alkaline Phosphatase 156 H (38-126) U/L Urine Protein Trace H (Negative) 12/17/21 12/18/21 Range/Units 16:24 03:39 WBC (3.8-10.6) k/uL Neutrophils # (1.3-7.7) k/uL Lymphocytes # (1.0-4.8) k/uL Sodium (137-145) mmol/L Glucose 114 H (74-99) mg/dL Total Bilirubin 3.1 H 3.7 H (0.2-1.3) mg/dL Conjugated Bilirubin 0.7 H (0.0-0.3) mg/dL Unconjugated Bilirubin 1.5 H (0.0-1.1) mg/dL Delta Bilirubin 0.9 H (0.0-0.2) mg/dL AST 127 H (17-59) U/L ALT 135 H (4-49) U/L Alkaline Phosphatase 170 H (38-126) U/L Urine Protein (Negative) Thrombosis Risk Factor Assmnt - Choose All That Apply Any of the Below Risk Factors Present?: Yes Each Factor Represents 1 point: Age 41-60 years Other Risk Factors: No Other congenital or acquired thrombophilia - If yes, enter type in comment: No Thrombosis Risk Factor Assessment Total Risk Factor Score: 1 Thrombosis Risk Factor Assessment Level: Low Risk
[2021-12-18] MEDS: PANTOPRAZOLE 40 MG TABLET PO SCH (13:48)
--- NOTE | 2021-12-18 15:30 | P.CONS ---
History of Present Illness - Reason for Consult Consult date: 12/18/21 cholecystitis Requesting physician: Kimberly Marks - Chief Complaint Abdominal pain/chest pain - History of Present Illness This a 56-year-old male who presented to the emergency department yesterday with complaints of chest pain/epigastric pain. States that he's had abdominal and chest pain for greater than one week. He was recently seen at [facility] and admitted for chest pain and underwent a cardiac cath which she states showed no disease. He states the pain returned it is not associated with any nausea or vomiting. He states he has been constipated and gave himself an enema on Wednesday which he had a small bowel movement following again yesterday but states it was mostly just liquid coming out. Denies any previous history of gallbladder disease, denies any history of liver disease, or alcohol use. He had a CT of the abdomen that she'll of fluid-filled small bowel loops, liquid stool in left side of the colon may be mild nonspecific colitis, borderline hydropic gallbladder with possible mild wall thickening underlying cholelithiasis, and mild circumferential bladder wall thickening. Ultrasound of the gallbladder did show mild gallbladder wall thickening with multiple gallstones consistent with acute and chronic cholecystitis. CBD within normal limits. Patient denies any recent illnesses, he denies any fevers or chills. Admitting labs WBC 12.0 hemoglobin 14 hematocrit 43 platelet count 290,000 INR 0.9 total bilirubin 3.1 conjugated bilirubin 0.7 unconjugated bilirubin 1.5 AST 123 ALT 100 alkaline phosphatase 156. Repeat labs today WBC 8.4 hemoglobin stable there was a slight increase in the total bilirubin to 3.7 AST 127 ALT 135 alkaline phosphatase 170, lipase 229. The patient states that abdominal pain has passed. He just feels bloated and constipated. He denies any nausea or vomiting. Gastroenterology was consulted for cholecystitis with hyperbilirubinemia. Review of Systems REVIEW OF SYSTEMS: CARDIOPULMONARY: No chest pain or shortness of breath. Gastrointestinal: Epigastric pain.. No nausea or vomiting. No hematemesis, coffee-ground emesis. No rectal bleeding, or melena. Constipation. GENITOURINARY: No dysuria or hematuria. MUSCULOSKELETAL: Reports normal range of motion., Joint pain. SKIN: No rashes. No jaundice. ENDOCRINE: No chills, fevers. No excessive weight gain or loss. No polydipsia or polyuria. PSYCHIATRIC: Unremarkable. NEUROLOGY: No change in mental status. Denies dizziness, headache. ENT: Vision unremarkable. CONSTITUTIONAL: No recent weight loss. No fever, chills, night sweats. Past Medical History Past Medical History: Hypertension Additional Past Medical History / Comment(s): seasonal allergies History of Any Multi-Drug Resistant Organisms: None Reported Past Surgical History: Heart Catheterization, Hernia Repair Past Anesthesia/Blood Transfusion Reactions: No Reported Reaction Past Psychological History: No Psychological Hx Reported Smoking Status: Never smoker Past Alcohol Use History: Occasional Past Drug Use History: None Reported Medications and Allergies Home Medications Medication Instructions Recorded Confirmed Type amLODIPine [Norvasc] 5 mg PO HS 04/24/21 12/17/21 History Aspirin 81 mg PO DAILY 12/17/21 12/17/21 History Atorvastatin [Lipitor] 80 mg PO HS 12/17/21 12/17/21 History Nitroglycerin Sl Tabs [Nitrostat] 0.4 mg SUBLINGUAL Q5M PRN 12/17/21 12/17/21 History Polyethylene Glycol 3350 [Miralax] 17 gm PO DAILY 12/17/21 12/17/21 History Allergies Allergy/AdvReac Type Severity Reaction Status Date / Time No Known Allergies Allergy Verified 12/17/21 16:29 Physical Exam Vitals: Vital Signs Temp Pulse Pulse Resp BP BP Pulse Ox 12/18/21 07:41 97.9 F 60 18 140/77 97 12/18/21 02:00 98.4 F 68 18 135/77 98 12/17/21 20:19 98.3 F 66 14 128/77 98 12/17/21 18:57 72 18 132/76 97 12/17/21 16:43 73 18 126/83 99 12/17/21 16:03 76 12/17/21 14:59 97.6 F 70 18 149/93 98 Intake and Output 12/17/21 12/18/21 12/18/21 22:59 06:59 14:59 Other: # Voids 1 Weight 86.183 kg General appearance: The patient is alert, oriented, appears in no acute distress. HET: Head is normocephalic and atraumatic. Conjunctiva pink. Sclera anicteric. Neck: Supple without lymphadenopathy. Trachea midline. Heart: S1 S2. Regular rate and rhythm. Lungs: Clear to auscultation. Abdomen: Soft, mild right upper quadrant tenderness, nondistended with bowel sounds. No guarding or rigidity. Skin: No rashes. Jaundice. Extremities: Normal skin color and turgor. No pedal edema. Neurological: No focal deficits. Alert and oriented x3. Results CBC & Chem 7: 12/18/21 03:39 12/18/21 03:39 Labs: Abnormal Lab Results - Last 24 Hours (Table) 12/17/21 12/17/21 12/17/21 Range/Units 15:32 15:32 15:32 WBC 12.0 H (3.8-10.6) k/uL Neutrophils # 10.6 H (1.3-7.7) k/uL Lymphocytes # 0.8 L (1.0-4.8) k/uL Sodium 136 L (137-145) mmol/L Glucose 137 H (74-99) mg/dL Total Bilirubin 3.1 H (0.2-1.3) mg/dL Conjugated Bilirubin (0.0-0.3) mg/dL Unconjugated Bilirubin (0.0-1.1) mg/dL Delta Bilirubin (0.0-0.2) mg/dL AST 123 H (17-59) U/L ALT 100 H (4-49) U/L Alkaline Phosphatase 156 H (38-126) U/L Urine Protein Trace H (Negative) 12/17/21 12/18/21 Range/Units 16:24 03:39 WBC (3.8-10.6) k/uL Neutrophils # (1.3-7.7) k/uL Lymphocytes # (1.0-4.8) k/uL Sodium (137-145) mmol/L Glucose 114 H (74-99) mg/dL Total Bilirubin 3.1 H 3.7 H (0.2-1.3) mg/dL Conjugated Bilirubin 0.7 H (0.0-0.3) mg/dL Unconjugated Bilirubin 1.5 H (0.0-1.1) mg/dL Delta Bilirubin 0.9 H (0.0-0.2) mg/dL AST 127 H (17-59) U/L ALT 135 H (4-49) U/L Alkaline Phosphatase 170 H (38-126) U/L Urine Protein (Negative) Comments: See HPI for details CT scan - abdomen: report reviewed US - abdomen: report reviewed Assessment and Plan (1) Cholecystitis Narrative/Plan: 56-year-old male who presented to the emergency department with complaints of epigastric/chest pain was found to have elevation in his LFTs as well as mild leukocytosis. CT of the abdomen and pelvis showed concerns for acute and chronic cholecystitis as well as cholelithiasis. There is no CBD dilation. An ultrasound confirming cholelithiasis and hydropic gallbladder again no CBD dilation. CT of the abdomen also shows fluid-filled bowel loops and liquid stool and left-sided colon to be related to gastroenteritis or nonspecific colitis. Gen. surgery is on consult. MRCP was ordered urgent, based on findings from MRCP will give recommendation for ERCP versus surgical management. Current Visit: Yes Status: Acute Code(s): K81.9 - CHOLECYSTITIS, UNSPECIFIED SNOMED Code(s): 41975271 (2) Hyperbilirubinemia Current Visit: Yes Status: Acute Code(s): E80.6 - OTHER DISORDERS OF BILIRUBIN METABOLISM SNOMED Code(s): 33673898 (3) Constipation Current Visit: Yes Status: Acute Code(s): K59.00 - CONSTIPATION, UNSPECIFIED SNOMED Code(s): 45239944 Plan: 1. Continue symptomatic and supportive care 2. Repeat CBC, CMP in the morning 3. MRCP ordered, urgent 4. Appreciate recommendations from surgery 5. Nothing by mouth after midnight 6. Further recommendations forthcoming based on MRCP findings 7. Continue current antibiotics Thank you for this consultation, we will continue to follow. The impression and plan of care has been dictated as directed. [] I performed a history and examination of this patient, discussed the same with the dictator. I agree with the dictator's note ,documented as a scribe. Any additional findings or plans will be noted.
[2021-12-18] MEDS: amLODIPine 5 MG TAB PO SCH (20:05)
[2021-12-18] MEDS: MORPHINE SULFATE 4 MG/ML SYRINGE IV PRN (23:17)
[2021-12-19 04:21] LABS: Basophils % (A) 0 %; Eosinophils % (A) 0 %; HCT 40.3 % (39.0-53.0); HGB 13.1 gm/dL (13.0-17.5); Lymphocytes # (A) 0.9 k/uL (1.0-4.8); Lymphocytes % (A) 9 %; MCH 29.6 pg (25.0-35.0); MCHC 32.4 g/dL (31.0-37.0); MCV 91.6 fL (80.0-100.0); Mean Platelet Volume 7.3; Monocytes # (A) 0.5 k/uL (0-1.0); Monocytes % (A) 5 %; Neutrophils # (A) 7.7 k/uL (1.3-7.7); Neutrophils % (A) 84 %; Platelet Count 268 k/uL (150-450); RDW 12.8 % (11.5-15.5); WBC 9.2 k/uL (3.8-10.6)
[2021-12-19 04:32] LABS: ALT 144 U/L (4-49); AST 104 U/L (17-59); African American GFR (CKD) >90 (>60 ml/min/1.73 sqM); Albumin 3.5 g/dL (3.5-5.0); Albumin/Globulin Ratio 1.3; Alkaline Phosphatase 203 U/L (38-126); Anion Gap 8 mmol/L; Blood Urea Nitrogen 11 mg/dL (9-20); Calcium 8.4 mg/dL (8.4-10.2); Carbon Dioxide 24 mmol/L (22-30); Chloride 107 mmol/L (98-107); Globulin 2.7 g/dL; Glucose 114 mg/dL (74-99); Non-African American GFR(CKD) >90 (>60 ml/min/1.73 sqM); Potassium 3.9 mmol/L (3.5-5.1); Sodium 139 mmol/L (137-145); Total Bilirubin 2.1 mg/dL (0.2-1.3); Total Protein 6.2 g/dL (6.3-8.2)
[2021-12-19] MEDS: SODIUM CHLORIDE 0.9% 1,000 ML IV SCH ×2 (05:30→19:40)
[2021-12-19 07:11] LABS: Appearance,Urine Clear (Clear); Bilirubin,Urine 1+ (Negative); Blood,Urine Negative (Negative); Color,Urine Dark Yellow; Glucose,Urine (UA) Negative (Negative); Ketones,Urine 1+ (Negative); Leukocyte Esterase,Urine Negative (Negative); Nitrite,Urine Negative (Negative); PH, Urine 5.5 (5.0-8.0); Protein,Urine Negative (Negative); Specific Gravity,Urine 1.019 (1.001-1.035); Urobilinogen,Urine <2.0 mg/dL (<2.0)
[2021-12-19] MEDS: KETOROLAC 30 MG/ML 1 ML VIAL IVP PRN ×2 (07:28→19:39)
[2021-12-19] MEDS: HEPARIN SODIUM,PORCINE/PF 5,000 UNIT/0.5 ML SYRINGE SQ SCH ×3 (07:30→21:38)
[2021-12-19] MEDS: PANTOPRAZOLE 40 MG TABLET PO SCH (07:32)
[2021-12-19] MEDS: metroNIDAZOLE-NS PMX 500 MG in SALINE 1 100ML.BAG IVPB SCH ×2 (07:38→15:08)
[2021-12-19] MEDS: ASPIRIN 81 MG PO SCH (10:04)
--- NOTE | 2021-12-19 11:01 | MR ---
[employer] HISTORY: Cholelithiasis, hyperbilirubinemia Multiplanar multisequence imaging obtained through the biliary system, 3-dimensional images were perf ormed on an alternate workstation and reviewed Comparison to ultrasound and CT 12/17/2021 The gallbladder shows thickened wall as noted on previous exams. There is cholelithiasis. No definiti ve filling defect to suggest choledocholithiasis. No evident biliary ductal dilatation. Liver shows n o signal drop on out of phase imaging. There is no evident liver mass. No retroperitoneal adenopathy. Aorta shows normal caliber. There is no ascites. Lung bases show no sizable effusion. Spleen is dana l. Adrenal glands kidneys within normal limits. Pancreas shows some cystic foci, coronal image #11 T2 data set series 301 measuring approximately 7-8 mm, coronal image 10 approximately 4 to 5 mm. IMPRESSION: Correlate for cholecystitis. No evident choledocholithiasis.
--- NOTE | 2021-12-19 11:22 | P.PN ---
Subjective Progress Note Date: 12/19/21 Principal diagnosis: Cholecystitis 56-year-old male who presented to the emergency department with complaints of epigastric pain. Imaging was consistent with a cystitis with cholelithiasis. He had elevation in his LFTs with a max total bilirubin 3.1 which has improved. Today's labs WBC 9.2 hemoglobin 13 platelet count 268,000 total bilirubin 2.1 AST 14 ALT 144 alk phos 203. Patient underwent MRCP showing no evidence of choledocholithiasis. Abdominal pain is improved, no nausea or vomiting. Objective - Vital Signs Vital signs: Vital Signs Temp 98 F 12/19/21 07:13 Pulse 63 12/19/21 07:13 Resp 17 12/19/21 07:13 BP 153/84 12/19/21 07:13 Pulse Ox 99 12/19/21 07:13 Intake & Output 12/18/21 12/19/21 12/19/21 18:59 06:59 18:59 Intake Total 180 Output Total 200 Balance 180 -200 Intake: Oral 180 Output: Emesis 200 Other: Voiding Method Toilet # Voids 1 1 - Exam General appearance: The patient is alert, oriented, appears in no acute distress. HET: Head is normocephalic and atraumatic. Conjunctiva pink. Sclera anicteric. Neck: Supple without lymphadenopathy. Abdomen: Soft, nontender, nondistended with bowel sounds. No guarding or rigidity. Extremities: Normal skin color and turgor. No pedal edema Skin: No rashes, no jaundice Neurological: No focal deficits. Alert and oriented x3. - Labs CBC & Chem 7: 12/19/21 04:00 12/19/21 04:00 Labs: Abnormal Lab Results - Last 24 Hours (Table) 12/19/21 12/19/21 12/19/21 Range/Units 04:00 04:00 07:00 Lymphocytes # 0.9 L (1.0-4.8) k/uL Glucose 114 H (74-99) mg/dL Total Bilirubin 2.1 H (0.2-1.3) mg/dL AST 104 H (17-59) U/L ALT 144 H (4-49) U/L Alkaline Phosphatase 203 H (38-126) U/L Total Protein 6.2 L (6.3-8.2) g/dL Urine Ketones 1+ H (Negative) Urine Bilirubin 1+ H (Negative) Microbiology - Last 24 Hours (Table) 12/17/21 17:13 Blood Culture - Preliminary Blood No Growth after 24 hours 12/17/21 17:37 Blood Culture - Preliminary Blood No Growth after 24 hours Assessment and Plan (1) Cholecystitis Narrative/Plan: 56-year-old male who presented to the emergency department with complaints of epigastric/chest pain was found to have elevation in his LFTs as well as mild leukocytosis. CT of the abdomen and pelvis showed concerns for acute and chronic cholecystitis as well as cholelithiasis. There is no CBD dilation. An ultrasound confirming cholelithiasis and hydropic gallbladder again no CBD dilation. CT of the abdomen also shows fluid-filled bowel loops and liquid stool and left-sided colon to be related to gastroenteritis or nonspecific colitis. Gen. surgery is on consult. MRCP was ordered urgent, based on findings from MRCP will give recommendation for ERCP versus surgical management. MRCP with no evidence of choledocholithiasis. Continue with recommendations from general surgery. Current Visit: Yes Status: Acute Code(s): K81.9 - CHOLECYSTITIS, UNSPECIFIED SNOMED Code(s): 41657198 (2) Hyperbilirubinemia Current Visit: Yes Status: Acute Code(s): E80.6 - OTHER DISORDERS OF BILIRUBIN METABOLISM SNOMED Code(s): 02859946 (3) Constipation Current Visit: Yes Status: Acute Code(s): K59.00 - CONSTIPATION, UNSPECIFIED SNOMED Code(s): 95161366 Plan: 1. Continue symptomatic and supportive care 2. Repeat CBC, CMP in the morning 3. MRCP with no evidence of choledocholithiasis 4. Appreciate recommendations from surgery 5. Keep nothing by mouth until further evaluated by surgery 6. No plans on ERCP. 7. Continue current antibiotics Thank you for this consultation, we will continue to follow. Dr. Tomás Short I agree with the dictator's note, documented as a scribe by Kaya Sanders.
--- NOTE | 2021-12-19 13:40 | P.PN ---
Subjective Progress Note Date: 12/19/21 History of present illness 56-year-old male with past medical history of hyperlipidemia, hypertension comes in with significant epigastric pain for the past 1 week. Patient was admitted at [facility] [place] for chest pain 1 week ago. Patient underwent heart cath which is normal. He continued to have abdominal pain which was initially epigastric but then radiated to the right upper quadrant pain. Patient denies any nausea or vomiting. He has noticed his urine to be dark yellow and his eyes turning yellow. Since the pain did not improve patient decided to come to the hospital to vitals are reviewed patient's afebrile pulse 70 respiratory rate 18 blood pressure 149/93. EKG revealed only had left bundle branch block that appeared chronic. Labs reviewed patient was found to have mild leukocytosis hemoglobin of 14 sodium 136 potassium 5.1 BUN 16 creatinine 0.76 total bilirubin of 3.1 conjugated 0.7 unconjugated 1.5 AST ALT mildly elevated at 120 and 300 respectively alk phos is elevated at 156. CT abdomen and pelvis suggestive of arm fluid-filled small bowel loops throughout the left side of the stomach concerning for gastroenteritis. Mild colitis. Gallbladder appeared hypertropic with no wall thickening and possible underlying cholelithiasis and cholecystitis. Ultrasound of the gallbladder was obtained, multiple gallstones, acute and chronic cholecystitis with gallbladder appeared large 9 X 3.5 centimeters. No dilated ducts noted. Vision and patient on Rocephin and Flagyl. We'll continue the same antibiotic at this point. Surgery and gastroenterology is consulted. MRCP is ordered. Continue patient nothing by mouth 2/4: MRCP is scheduled for today revealed cholecystitis. No evidence of choledocholelithiasis. Repeat blood work revealed CBC unremarkable. Electrolytes and renal function normal. Total bilirubin 2.1, AST 104, ALT 144, alkaline phosphatase 203. Urinalysis dark yellow ketones +1, bilirubin +1. P atient is followed by GI and general surgery and will wait for planned from surgery. Cardiac monitoring discontinued. Patient is less jaundiced today and denies abdominal pain. He states he vomited 1 last night. No nausea at this time. ROS Constitutional: Denies chills, Denies fever, Denies lethargy, Denies malaise, Denies poor appetite, Denies weakness, Denies weight loss Eyes: denies decreased vision, denies diplopia, denies discharge, denies pain endorses jaundice Ears: deny: decreased hearing Ears, nose, mouth and throat: Denies dental pain, Denies headache, Denies nasal discharge, Denies nose pain Cardiovascular: Denies chest pain, Denies decreased exercise tolerance, Denies edema, Denies high blood pressure, Denies irregular heart beat, Denies palpita tions, Denies paroxysmal nocturnal dyspnea, Denies rapid heart beat, Denies shortness of breath Respiratory: Denies congestion, Denies cough, Denies cough with sputum, Denies dyspnea, Denies home oxygen, Denies wheezing Gastrointestinal: Denies abdominal pain, Denies change in bowel habits, Denies coffee ground emesis, Denies early satiety, Denies excessive gas, Denies heartburn, Denies hematemesis, Denies hematochezia, Denies loss of appetite, Denies nausea, Denies vomiting Genitourinary: Denies dysuria, Denies flank pain, Denies kidney stones, Denies menorrhagia, Denies urgency, Denies urinary frequency Musculoskeletal: Denies gait dysfunction, Denies limitation of motion, Denies morning stiffness, Denies muscle cramps Integumentary: Denies rash, Denies wounds, Denies brittle nails, Denies change in hair/nails, Denies darkening of skin Neurological: Denies balance difficulties, Denies change in speech, Denies double vision, Denies gait dysfunction, Denies loss of vision, Denies motor disturbance, Denies numbness, Denies paralysis, Denies paresthesias, Denies seizures Psychiatric: Denies anxiety, Denies depression Endocrine: Denies excessive sweating, Denies excessive thirst, Denies high blood sugars, Denies palpitations Hematologic/Lymphatic: Denies easy bruising, Denies lymphadenopathy Physical exam - Constitutional General appearance: cooperative, no acute distress, obese - EENT Eyes: slight icteric sclerae, PERRLA, normal appearance ENT: hearing grossly normal - Neck Neck: no lymphadenopathy, normal ROM, no other, no rigidity, no stridor, no thyromegaly - Respiratory Respiratory: bilateral: CTA, negative: diminished, dullness, rales, rhonchi - Cardiovascular Rhythm: regular Heart sounds: normal: S1, S2 Abnormal Heart Sounds: no systolic murmur, no diastolic murmur, no rub, no S3 Gallop, no S4 Gallop, no click, no other - Gastrointestinal General gastrointestinal: normal bowel sounds, soft, minimal tender right upper quad - Integumentary Integumentary: no rash - Neurologic Neurologic: no motor or sensory deficit - Musculoskeletal Musculoskeletal: gait normal, strength equal bilaterally - Psychiatric Psychiatric: A&O x's 3, appropriate affect Assessment and plan 1. Acute on chronic cholecystitis IV antibiotics with Rocephin and Flagyl. Gastroenterology consult appreciated. Surgery consulted for possible cholecystectomy. Continue IV fluids at 100 mL per hour. Keep patient nothing by mouth. MRCP revealed cholecystitis. 2. Acute transaminitis with elevated alkaline phosphatase rule out choledocholithiasis. MRCP as above. Avoid Tylenol hold atorvastatin 3. Hypertension continue Norvasc at 5 mg daily at bedtime 4. Hyperlipidemia hold atorvastatin 5. Acute gastroenteritis continue Protonix at 40 mg before meals breakfast 6. CODE STATUS full code 7 DVT prophylaxis with heparin every 12 Impression and plan of care have been directed as dictated by the signing physic ian. Elisa Vyas nurse practitioner acting as scribe for signing physician. Objective - Vital Signs Vital signs: Vital Signs Temp 98 F 12/19/21 07:13 Pulse 63 12/19/21 07:13 Resp 17 12/19/21 07:13 BP 153/84 12/19/21 07:13 Pulse Ox 99 12/19/21 07:13 Intake & Output 12/18/21 12/19/21 12/19/21 18:59 06:59 18:59 Intake Total 180 Output Total 200 Balance 180 -200 Intake: Oral 180 Output: Emesis 200 Other: Voiding Method Toilet # Voids 1 1 - Labs CBC & Chem 7: 12/19/21 04:00 12/19/21 04:00 Labs: Abnormal Lab Results - Last 24 Hours (Table) 12/19/21 12/19/21 12/19/21 Range/Units 04:00 04:00 07:00 Lymphocytes # 0.9 L (1.0-4.8) k/uL Glucose 114 H (74-99) mg/dL Total Bilirubin 2.1 H (0.2-1.3) mg/dL AST 104 H (17-59) U/L ALT 144 H (4-49) U/L Alkaline Phosphatase 203 H (38-126) U/L Total Protein 6.2 L (6.3-8.2) g/dL Urine Ketones 1+ H (Negative) Urine Bilirubin 1+ H (Negative) Microbiology - Last 24 Hours (Table) 12/17/21 17:13 Blood Culture - Preliminary Blood No Growth after 24 hours 12/17/21 17:37 Blood Culture - Preliminary Blood No Growth after 24 hours
--- NOTE | 2021-12-19 13:47 | P.PN ---
Subjective Progress Note Date: 12/19/21 Patient seen and examined at bedside. Bilirubin has decreased from 3.7 to 2.1. MRCP was completed. He states that he is feeling a bit better today. Denies nausea or vomiting. Objective - Vital Signs Vital signs: Vital Signs Temp 98 F 12/19/21 07:13 Pulse 63 12/19/21 07:13 Resp 17 12/19/21 07:13 BP 153/84 12/19/21 07:13 Pulse Ox 99 12/19/21 07:13 Intake & Output 12/18/21 12/19/21 12/19/21 18:59 06:59 18:59 Intake Total 180 Output Total 200 Balance 180 -200 Intake: Oral 180 Output: Emesis 200 Other: Voiding Method Toilet Toilet # Voids 1 1 - Constitutional General appearance: Present: cooperative - Respiratory Details: No difficulty with respiration - Gastrointestinal Gastrointestinal Comment(s): Soft, nontender, nondistended, no rebound, no guarding - Psychiatric Psychiatric: Present: A&O x's 3 - Labs CBC & Chem 7: 12/19/21 04:00 12/19/21 04:00 Labs: Abnormal Lab Results - Last 24 Hours (Table) 12/19/21 12/19/21 12/19/21 Range/Units 04:00 04:00 07:00 Lymphocytes # 0.9 L (1.0-4.8) k/uL Glucose 114 H (74-99) mg/dL Total Bilirubin 2.1 H (0.2-1.3) mg/dL AST 104 H (17-59) U/L ALT 144 H (4-49) U/L Alkaline Phosphatase 203 H (38-126) U/L Total Protein 6.2 L (6.3-8.2) g/dL Urine Ketones 1+ H (Negative) Urine Bilirubin 1+ H (Negative) Microbiology - Last 24 Hours (Table) 12/17/21 17:13 Blood Culture - Preliminary Blood No Growth after 24 hours 12/17/21 17:37 Blood Culture - Preliminary Blood No Growth after 24 hours Assessment and Plan Plan: 56-year-old male with cholecystitis. MRCP was reviewed with no evidence of choledocholithiasis. Based on the hyper bilirubinemia improving to the level of 2.1, it does appear that the patient likely passed a stone. If continued downward trend, we will plan for left scopic cholecystectomy in the morning. Patient can have clear liquid diet today and nothing by mouth after midnight.
[2021-12-19] MEDS: amLODIPine 5 MG TAB PO SCH (19:39)
[2021-12-20] MEDS: metroNIDAZOLE-NS PMX 500 MG in SALINE 1 100ML.BAG IVPB SCH ×3 (00:01→15:24)
[2021-12-20] MEDS: SODIUM CHLORIDE 0.9% 1,000 ML IV SCH ×2 (06:05→15:25)
[2021-12-20] MEDS: PANTOPRAZOLE 40 MG TABLET PO SCH (07:45)
[2021-12-20] MEDS: HEPARIN SODIUM,PORCINE/PF 5,000 UNIT/0.5 ML SYRINGE SQ SCH ×2 (07:46→15:25)
[2021-12-20] MEDS ORDERED: BUPIVACAIN-EPI 0.25%-1:200,000 30 ML VIAL SQ ONE ×2 (09:15→10:15)
[2021-12-20 09:23] LABS: African American GFR (CKD) >90 (>60 ml/min/1.73 sqM); Anion Gap 4 mmol/L; Blood Urea Nitrogen 9 mg/dL (9-20); Calcium 8.7 mg/dL (8.4-10.2); Carbon Dioxide 27 mmol/L (22-30); Chloride 106 mmol/L (98-107); Glucose 93 mg/dL (74-99); Non-African American GFR(CKD) >90 (>60 ml/min/1.73 sqM); Potassium 3.9 mmol/L (3.5-5.1); Sodium 137 mmol/L (137-145)
[2021-12-20] MEDS ORDERED: PROPOFOL 10 MG/ML 20 ML VIAL IV ONE (09:54)
[2021-12-20] MEDS ORDERED: SUCCINYLCHOLINE CHLORIDE 100 MG/5 ML SYR IV ONE (09:54)
[2021-12-20] MEDS ORDERED: fentaNYL (PF) 50 MCG/ML 2 ML AMP ONE (09:54)
[2021-12-20] MEDS ORDERED: DEXAMETHASONE SOD PHOSPHATE 10 MG/ML 1 ML VIAL ONE (09:54)
[2021-12-20] MEDS ORDERED: MIDAZOLAM 2 MG/2 ML VIAL ONE (09:54)
[2021-12-20] MEDS ORDERED: ROCURONIUM 10 MG/ML (5 ML VIAL) IV ONE (09:54)
[2021-12-20] MEDS ORDERED: ONDANSETRON 4 MG/2 ML VIAL ONE (09:54)
[2021-12-20] MEDS ORDERED: SODIUM CHLORIDE 0.9% 1,000 ML IV ONE (09:54)
[2021-12-20] MEDS ORDERED: KETOROLAC 15 MG/ML 1 ML VIAL ONE (09:54)
[2021-12-20] MEDS ORDERED: LACTATED RINGERS 1,000 ML IV ONE (10:46)
--- NOTE | 2021-12-20 10:55 | P.OP ---
Date of Procedure: 12/20/21 Preoperative Diagnosis: Acute cholecystitis Postoperative Diagnosis: Acute cholecystitis Procedure(s) Performed: Laparoscopic cholecystectomy Anesthesia: SEBASTIÁN Surgeon: Osmani Haney Pathology: other (Gallbladder and contents) Condition: stable Disposition: floor Indications for Procedure: 56-year-old male presented to the emergency department with complaints of abdominal pain. He was found to have cholecystitis and suspicion of choledocholithiasis. Bilirubin did trend down during his admission and MRCP was performed with no evidence of choledocholithiasis. Secondary to this, plan was for laparoscopic cholecystectomy. Risks, benefits and alternatives were provided to the patient. He did provide consent prior to attending the operating suite. Operative Findings: Thickened and distended gallbladder Inflamed gallbladder Description of Procedure: The patient was brought to the operating suite and placed in supine position on the operating table. Sedation was provided by anesthesia and the patient underwent endotracheal intubation. The patient was then prepped and draped in regular sterile fashion. Infraumbilical incision was made and dissection was carried to the fascia. The fascia was incised and a 12 mm trocar was placed. Pneumoperitoneum was achieved. 3 additional 5 mm ports were placed. One was placed in the subxiphoid region and 2 were placed in the right upper quadrant. The patient was then placed in appropriate position. The gallbladder was then retracted. It was noted to be inflamed and thickened. Dissection was then carried with a [place] dissector to skeletonize both the cystic duct and cystic artery. Critical view was obtained. 2 clips were placed proximally and the cystic duct and one was placed distally and the cystic duct was ligated. 2 clips were placed proximally on the cystic artery and one was placed distally and the cystic artery was ligated. Cautery was used to then dissect the gallbladder from the gallbladder fossa on the liver bed. The gallbladder was then placed in an Endo Catch bag and removed from the abdomen from the 12 mm trocar site. On examination, hemostasis was maintained. Irrigation was placed in the right upper quadrant and suctioned. The 12 mm trocar fascia site was then closed with interrupted 0 Vicryl suture under direct visualization using a [place] device. Pneumoperitoneum was released. All ports removed from the abdomen. 4-0 Vicryl suture was used to close the incision sites and sterile dressing was applied. Patient was awakened in the operating suite and taken to postanesthesia care unit in stable condition.
[2021-12-20] MEDS: MORPHINE SULFATE 4 MG/ML SYRINGE IV PRN (12:28)
--- NOTE | 2021-12-20 15:16 | P.PN ---
Subjective Progress Note Date: 12/20/21 History of present illness 56-year-old male with past medical history of hyperlipidemia, hypertension comes in with significant epigastric pain for the past 1 week. Patient was admitted at [facility] [place] for chest pain 1 week ago. Patient underwent heart cath which is normal. He continued to have abdominal pain which was initially epigastric but then radiated to the right upper quadrant pain. Patient denies any nausea or vomiting. He has noticed his urine to be dark yellow and his eyes turning yellow. Since the pain did not improve patient decided to come to the hospital to vitals are reviewed patient's afebrile pulse 70 respiratory rate 18 blood pressure 149/93. EKG revealed only had left bundle branch block that appeared chronic. Labs reviewed patient was found to have mild leukocytosis hemoglobin of 14 sodium 136 potassium 5.1 BUN 16 creatinine 0.76 total bilirubin of 3.1 conjugated 0.7 unconjugated 1.5 AST ALT mildly elevated at 120 and 300 respectively alk phos is elevated at 156. CT abdomen and pelvis suggestive of arm fluid-filled small bowel loops throughout the left side of the stomach concerning for gastroenteritis. Mild colitis. Gallbladder appeared hypertropic with no wall thickening and possible underlying cholelithiasis and cholecystitis. Ultrasound of the gallbladder was obtained, multiple gallstones, acute and chronic cholecystitis with gallbladder appeared large 9 X 3.5 centimeters. No dilated ducts noted. Vision and patient on Rocephin and Flagyl. We'll continue the same antibiotic at this point. Surgery and gastroenterology is consulted. MRCP is ordered. Continue patient nothing by mouth 2/: MRCP is scheduled for today revealed cholecystitis. No evidence of choledocholelithiasis. Repeat blood work revealed CBC unremarkable. Electrolytes and renal function normal. Total bilirubin 2.1, AST 104, ALT 144, alkaline phosphatase 203. Urinalysis dark yellow ketones +1, bilirubin +1. P atient is followed by GI and general surgery and will wait for planned from surgery. Cardiac monitoring discontinued. Patient is less jaundiced today and denies abdominal pain. He states he vomited 1 last night. No nausea at this time. 2/ patient underwent cholecystectomy today. His daughter bedside denies any significant shortness of breath or chest pain. She is sore in the abdomen and is tired. Denies any flatus or bowel movement. Denies any nausea or vomiting. Vitals are stable afebrile pulse 53 respiratory rate 16 blood pressure 134/75. Repeat labs to today was normal. Patient advanced to full liquid diet CMP tomorrow ROS Constitutional: Denies chills, Denies fever, Denies lethargy, Denies malaise, Denies poor appetite, Denies weakness, Denies weight loss Eyes: denies decreased vision, denies diplopia, denies discharge, denies pain endorses jaundice Ears: deny: decreased hearing Ears, nose, mouth and throat: Denies dental pain, Denies headache, Denies nasal discharge, Denies nose pain Cardiovascular: Denies chest pain, Denies decreased exercise tolerance, Denies edema, Denies high blood pressure, Denies irregular heart beat, Denies palpit ations, Denies paroxysmal nocturnal dyspnea, Denies rapid heart beat, Denies shortness of breath Respiratory: Denies congestion, Denies cough, Denies cough with sputum, Denies dyspnea, Denies home oxygen, Denies wheezing Gastrointestinal: Denies abdominal pain, Denies change in bowel habits, Denies coffee ground emesis, Denies early satiety, Denies excessive gas, Denies heartburn, Denies hematemesis, Denies hematochezia, Denies loss of appetite, Denies nausea, Denies vomiting Genitourinary: Denies dysuria, Denies flank pain, Denies kidney stones, Denies menorrhagia, Denies urgency, Denies urinary frequency Musculoskeletal: Denies gait dysfunction, Denies limitation of motion, Denies morning stiffness, Denies muscle cramps Integumentary: Denies rash, Denies wounds, Denies brittle nails, Denies change in hair/nails, Denies darkening of skin Neurological: Denies balance difficulties, Denies change in speech, Denies double vision, Denies gait dysfunction, Denies loss of vision, Denies motor disturbance, Denies numbness, Denies paralysis, Denies paresthesias, Denies seizures Psychiatric: Denies anxiety, Denies depression Endocrine: Denies excessive sweating, Denies excessive thirst, Denies high blood sugars, Denies palpitations Hematologic/Lymphatic: Denies easy bruising, Denies lymphadenopathy Physical exam - Constitutional General appearance: cooperative, no acute distress, obese - EENT Eyes: slight icteric sclerae, PERRLA, normal appearance ENT: hearing grossly normal - Neck Neck: no lymphadenopathy, normal ROM, no other, no rigidity, no stridor, no thyromegaly - Respiratory Respiratory: bilateral: CTA, negative: diminished, dullness, rales, rhonchi - Cardiovascular Rhythm: regular Heart sounds: normal: S1, S2 Abnormal Heart Sounds: no systolic murmur, no diastolic murmur, no rub, no S3 Gallop, no S4 Gallop, no click, no other - Gastrointestinal General gastrointestinal: normal bowel sounds, soft, minimal tender in all quadrants, laparoscopy site appear clean with no drainage. - Integumentary Integumentary: no rash - Neurologic Neurologic: no motor or sensory deficit - Musculoskeletal Musculoskeletal: gait normal, strength equal bilaterally - Psychiatric Psychiatric: A&O x's 3, appropriate affect Assessment and plan 1. Acute cholecystitis IV antibiotics with Rocephin and Flagyl. Gastroenterolo gy consult appreciated. Status post cholecystectomy. Continue IV fluids at 100 mL per hour. Full liquid diet MRCP revealed cholecystitis. 2. Acute transaminitis with elevated alkaline phosphatase rule out choledocholithiasis. MRCP as above. Avoid Tylenol hold atorvastatin 3. Hypertension continue Norvasc at 5 mg daily at bedtime 4. Hyperlipidemia hold atorvastatin 5. Acute gastroenteritis continue Protonix at 40 mg before meals breakfast 6. CODE STATUS full code 7 DVT prophylaxis with heparin every 12 Objective - Vital Signs Vital signs: Vital Signs Temp 97.4 F L 12/20/21 10:57 Pulse 44 L 12/20/21 11:29 Resp 18 12/20/21 11:29 BP 1455/87 12/20/21 11:29 Pulse Ox 98 12/20/21 11:29 Intake & Output 12/19/21 12/20/21 12/20/21 18:59 06:59 18:59 Intake Total 100 1700 Output Total 5 Balance 100 1695 Intake: IV 1700 Intake, IV Titration 100 Amount metroNIDAZOLE-NS PMX 500 100 mg In Saline 1 100ml.bag @ 100 mls/hr IVPB Q8HR [facility] Rx#:[id number] Output: Estimated Blood Loss 5 Other: Voiding Method Toilet Toilet # Voids 2 1 - Labs CBC & Chem 7: 12/19/21 04:00 12/20/21 08:57 Labs: Microbiology - Last 24 Hours (Table) 12/17/21 17:13 Blood Culture - Preliminary Blood No Growth after 48 hours 12/17/21 17:37 Blood Culture - Preliminary Blood No Growth after 48 hours
[2021-12-20] MEDS: amLODIPine 5 MG TAB PO SCH (20:52)
[2021-12-20] MEDS ORDERED: HYDROcodone/APAP 5-325MG 1 EACH TAB PO STA (21:00)
[2021-12-20] MEDS ORDERED: HYDROcodone/APAP 5-325MG 1 EACH TAB PO PRN (21:29)
[2021-12-21] MEDS: metroNIDAZOLE-NS PMX 500 MG in SALINE 1 100ML.BAG IVPB SCH ×2 (00:57→09:18)
[2021-12-21] MEDS: KETOROLAC 30 MG/ML 1 ML VIAL IVP SCH ×3 (00:57→12:42)
[2021-12-21] MEDS: HEPARIN SODIUM,PORCINE/PF 5,000 UNIT/0.5 ML SYRINGE SQ SCH ×2 (00:57→09:17)
[2021-12-21] MEDS: SODIUM CHLORIDE 0.9% 1,000 ML IV SCH ×2 (00:58→10:59)
[2021-12-21 08:45] VITALS: RESP 17
[2021-12-21 09:06] LABS: Basophils # (A) 0.04 X 10*3/uL (0.00-0.10); Basophils % (A) 0.3 %; Eosinophils # (A) 0.01 X 10*3/uL (0.04-0.35); Eosinophils % (A) 0.1 %; HCT 39.5 % (39.6-50.0); HGB 12.6 g/dL (13.0-17.0); Immature Grans, Automated 0.3 %; Lymphocytes # (A) 1.76 X 10*3/uL (0.90-5.00); Lymphocytes % (A) 14.8 %; MCH 28.6 pg (27.0-32.0); MCHC 31.9 g/dL (32.0-37.0); MCV 89.8 fL (80.0-97.0); Mean Platelet Volume 10.9 fL (9.5-12.2); Monocytes # (A) 1.31 X 10*3/uL (0.20-1.00); NRBC Per 100 WBC 0 /100 WBCS (0.0-0.0); Neutrophils # (A) 8.74 X 10*3/uL (1.80-7.70); Neutrophils % (A) 73.5 %; Platelet Count 271 X 10*3/uL (140-440); RDW 12.5 % (11.5-14.5); WBC 11.89 X 10*3/uL (4.50-10.00)
[2021-12-21] MEDS: PANTOPRAZOLE 40 MG TABLET PO SCH (09:17)
[2021-12-21 09:27] LABS: African American GFR (CKD) 121.4 (60.0-200.0); Albumin 3.4 g/dL (3.8-4.9); Albumin/Globulin Ratio 1.62 (1.60-3.17); Anion Gap 9.8 mmol/L (10.00-18.00); BUN/Creat Ratio 11.75 Ratio (12.00-20.00); Blood Urea Nitrogen 8.5 mg/dL (9.0-27.0); Calcium 8.5 mg/dL (8.7-10.3); Carbon Dioxide 23.4 mmol/L (20.0-27.5); Globulin 2.1 g/dL (1.6-3.3); Non-African American GFR(CKD) 104.7 (60.0-200.0); Potassium 3.8 mmol/L (3.5-5.5); Total Bilirubin 0.6 mg/dL (0.30-1.20); Total Protein 5.5 g/dL (6.2-8.2)
--- NOTE | 2021-12-21 09:49 | P.PN ---
Subjective Progress Note Date: 12/21/21 Patient seen and examined at bedside. States he is doing well. Denies nausea or vomiting. Tolerating diet. Pain well-controlled. Objective - Vital Signs Vital signs: Vital Signs Temp 98 F 12/21/21 07:38 Pulse 58 L 12/21/21 07:38 Resp 17 12/21/21 07:38 BP 162/88 12/21/21 07:38 Pulse Ox 99 12/21/21 07:38 Intake & Output 12/20/21 12/21/21 12/21/21 18:59 06:59 18:59 Intake Total 1700 Output Total 5 Balance 1695 Intake: IV 1700 Output: Estimated Blood Loss 5 Other: Voiding Method Toilet Toilet # Voids 2 - Constitutional General appearance: Present: cooperative, no acute distress - Gastrointestinal Gastrointestinal Comment(s): Soft, nontender, nondistended, no rebound, guarding, incision sites are clean, dry and intact - Psychiatric Psychiatric: Present: A&O x's 3 - Labs CBC & Chem 7: 12/21/21 03:21 12/21/21 03:21 Labs: Abnormal Lab Results - Last 24 Hours (Table) 12/21/21 12/21/21 Range/Units 03:21 03:21 WBC 11.89 H (4.50-10.00) X 10*3/uL Hgb 12.6 L (13.0-17.0) g/dL Hct 39.5 L (39.6-50.0) % MCHC 31.9 L (32.0-37.0) g/dL Neutrophils # 8.74 H (1.80-7.70) X 10*3/uL Monocytes # 1.31 H (0.20-1.00) X 10*3/uL Eosinophils # 0.01 L (0.04-0.35) X 10*3/uL Anion Gap 9.80 L (10.00-18.00) mmol/L BUN 8.5 L (9.0-27.0) mg/dL BUN/Creatinine Ratio 11.75 L (12.00-20.00) Ratio Calcium 8.5 L (8.7-10.3) mg/dL AST 96 H (14-35) U/L ALT 144 H (10-49) U/L Alkaline Phosphatase 191 H (41-126) U/L Total Protein 5.5 L (6.2-8.2) g/dL Albumin 3.4 L (3.8-4.9) g/dL Microbiology - Last 24 Hours (Table) 12/17/21 17:37 Blood Culture - Preliminary Blood No Growth after 72 hours 12/17/21 17:13 Blood Culture - Preliminary Blood No Growth after 72 hours Assessment and Plan Plan: Postoperative day #1, laparoscopic cholecystectomy. Patient is doing well since the procedure. Tolerating diet. He is surgically stable for discharge. I did recommend low-fat diet for the next few weeks. No lifting greater than 5 pounds. Wound care and activity instructions were discussed with the patient.
[2021-12-21 14:03] VITALS: BP 158/86; PULSE 61; TEMP 98.3
--- NOTE | 2021-12-21 14:25 | P.DS ---
Providers Date of admission: 12/17/21 16:58 Attending physician: Kimberly Marks MD Consults: 12/17/21 16:59 Consult Physician Routine Consulting Provider: Osmani Haney Consult Reason/Comments: cholecystitis Do you want consulting provider notified?: Yes 12/17/21 17:00 Consult Physician Routine Consulting Provider: Sana Short Consult Reason/Comments: cholecystitis Do you want consulting provider notified?: Yes Primary care physician: [facility] Course: History of present illness 56-year-old male with past medical history of hyperlipidemia, h ypertension comes in with significant epigastric pain for the past 1 week. Patient was admitted at [facility] [place] for chest pain 1 week ago. Patient underwent heart cath which is normal. He continued to have abdominal pain which was initially epigastric but then radiated to the right upper quadrant pain. Patient denies any nausea or vomiting. He has noticed his urine to be dark yellow and his eyes turning yellow. Since the pain did not improve patient decided to come to the hospital to vitals are reviewed patient's afebrile pulse 70 respiratory rate 18 blood pressure 149/93. EKG revealed only had left bundle branch block that appeared chronic. Labs reviewed patient was found to have mild leukocytosis hemoglobin of 14 sodium 136 potassium 5.1 BUN 16 creatinine 0.76 total bilirubin of 3.1 conjugated 0.7 unconjugated 1.5 AST ALT mildly elevated at 120 and 300 respectively alk phos is elevated at 156. CT abdomen and pelvis suggestive of arm fluid-filled small bowel loops throughout the left side of the stomach concerning for gastroenteritis. Mild colitis. Gallbladder appeared hypertropic with no wall thickening and possible underlying cholelithiasis and cholecystitis. Ultrasound of the gallbladder was obtained, multiple gallstones, acute and chronic cholecystitis with gallbladder appeared large 9 X 3.5 centimeters. No dilated ducts noted. Vision and patient on Rocephin and Flagyl. We'll continue the same antibiotic at this point. Surgery and gastroenterology is consulted. MRCP is ordered. Continue patient nothing by mouth 2/4: MRCP is scheduled for today revealed cholecystitis. No evidence of choledocholelithiasis. Repeat blood work revealed CBC unremarkable. Electrolytes and renal function normal. Total bilirubin 2.1, AST 104, ALT 144, alkaline phosphatase 203. Urinalysis dark yellow ketones +1, bilirubin +1. Patient is followed by GI and general surgery and will wait for planned from surgery. Cardiac monitoring discontinued. Patient is less jaundiced today and denies abdominal pain. He states he vomited 1 last night. No nausea at this time. 12/20 patient underwent cholecystectomy today. His daughter bedside denies any significant shortness of breath or chest pain. She is sore in the abdomen and is tired. Denies any flatus or bowel movement. Denies any nausea or vomiting. Vitals are stable afebrile pulse 53 respiratory rate 16 blood pressure 134/75. Repeat labs to today was normal. Patient advanced to full liquid diet CMP tomorrow 12/21 patient examined bedside able to tolerate diet. Is passing flatus minimal abdominal pain denies any nausea or vomiting. No bowel movement yet. Patient denies any fever or chills. Vitals were reviewed patient's afebrile blood pressure mildly elevated. Labs reviewed WBC 11.8 hemoglobin 11.6 liver enzymes are downtrending with improvement of total bilirubin to 0.6. Norvasc increased to 10 due to increased blood pressure. Patient will follow with primary care physician for further blood pressure medication changes. Patient will be sent on Augmentin for 7 days. ROS Constitutional: Denies chills, Denies fever, Denies lethargy, Denies malaise, Denies poor appetite, Denies weakness, Denies weight loss Eyes: denies decreased vision, denies diplopia, denies discharge, denies pain endorses jaundice Ears: deny: decreased hearing Ears, nose, mouth and throat: Denies dental pain, Denies headache, Denies nasal discharge, Denies nose pain Cardiovascular: Denies chest pain, Denies decreased exercise tolerance, Denies edema, Denies high blood pressure, Denies irregular heart beat, Denies palpitations, Denies paroxysmal nocturnal dyspnea, Denies rapid heart beat, Denies shortness of breath Respiratory: Denies congestion, Denies cough, Denies cough with sputum, Denies dyspnea, Denies home oxygen, Denies wheezing Gastrointestinal: minimal abdominal pain, Denies change in bowel habits, Denies coffee ground emesis, Denies early satiety, Denies excessive gas, Denies heartburn, Denies hematemesis, Denies hematochezia, Denies loss of appetite, Denies nausea, Denies vomiting Physical exam - Constitutional General appearance: cooperative, no acute distress, obese - EENT Eyes: slight icteric sclerae, PERRLA, normal appearance ENT: hearing grossly normal - Neck Neck: no lymphadenopathy, normal ROM, no other, no rigidity, no stridor, no thyromegaly - Respiratory Respiratory: bilateral: CTA, negative: diminished, dullness, rales, rhonchi - Cardiovascular Rhythm: regular Heart sounds: normal: S1, S2 Abnormal Heart Sounds: no systolic murmur, no diastolic murmur, no rub, no S3 Gallop, no S4 Gallop, no click, no other - Gastrointestinal General gastrointestinal: normal bowel sounds, soft, minimal tender in all quadrants, laparoscopy site appear clean with no drainage. Discharge diagnoses 1. Acute cholecystitis Status post cholecystectomy. 2. Acute transaminitis with elevated alkaline phosphatase, improved 3. Hypertension increase Norvasc to 10 mg daily 4. HyperlipidemiAtorvastatin reduced to 40 mg by mouth daily disposition home with self-care Patient Condition at Discharge: Stable Plan - Discharge Summary Discharge Rx Participant: Yes New Discharge Prescriptions: New HYDROcodone/APAP 5-325MG [Levan 5-325] 1 tab PO Q6HR PRN 3 Days #12 tab PRN Reason: Pain amLODIPine [Norvasc] 10 mg PO HS tab Amoxic-Pot Clav 500-125 mg [Augmentin 500-125 mg] 1 tab PO Q12HR #14 tab Continue Polyethylene Glycol 3350 [Miralax] 17 gm PO DAILY amLODIPine [Norvasc] 5 mg PO HS Aspirin 81 mg PO DAILY Nitroglycerin Sl Tabs [Nitrostat] 0.4 mg SUBLINGUAL Q5M PRN PRN Reason: Chest Pain Atorvastatin [Lipitor] 80 mg PO HS Discharge Medication List amLODIPine [Norvasc] 5 mg PO HS 04/24/21 [History] Aspirin 81 mg PO DAILY 12/17/21 [History] Atorvastatin [Lipitor] 80 mg PO HS 12/17/21 [History] Nitroglycerin Sl Tabs [Nitrostat] 0.4 mg SUBLINGUAL Q5M PRN 12/17/21 [History] Polyethylene Glycol 3350 [Miralax] 17 gm PO DAILY 12/17/21 [History] Amoxic-Pot Clav 500-125 mg [Augmentin 500-125 mg] 1 tab PO Q12HR #14 tab 12/21/21 [Rx] HYDROcodone/APAP 5-325MG [Levan 5-325] 1 tab PO Q6HR PRN 3 Days #12 tab 12/21/21 [Rx] amLODIPine [Norvasc] 10 mg PO HS tab 12/21/21 [Rx] Follow up Appointment(s)/Referral(s): Jeane Rey MD [Primary Care Provider] - 1-2 days (Please call and schedule appointment when office opens on wednesday ) Osmani Haeny DO [Doctor of Osteopathic Medicine] - 2 Weeks (Please call and schedule appointment when office opens on Wednesday ) Patient Instructions/Handouts: Laparoscopic Cholecystectomy (DC) Discharge Disposition: HOME SELF-CARE
== END 2021-12-21 14:40 | disposition home or self-care (01) | DRG 418 ==
LOC: EC 14:58 → 4SSUR 16:58
PROVIDERS: ADMIT Internal Medicine; ATTEND Internal Medicine
PROC: 0FT44ZZ Resection of Gallbladder, Percutaneous Endoscopic Approach (ICD-10-PCS; principal; 2021-12-20 11:00)
DX: K80.12 Calculus of gallbladder with acute and chronic cholecystitis without obstruction (principal); K82.1 Hydrops of gallbladder; K59.00 Constipation, unspecified; K52.9 Noninfective gastroenteritis and colitis, unspecified; I10 Essential (primary) hypertension; E78.5 Hyperlipidemia, unspecified; I44.7 Left bundle-branch block, unspecified; Z79.82 Long term (current) use of aspirin; Z79.899 Other long term (current) drug therapy; Z82.49 Family history of ischemic heart disease and other diseases of the circulatory system; Z98.890 Other specified postprocedural states; R74.01 Elevation of levels of liver transaminase levels; E80.6 Other disorders of bilirubin metabolism; Z20.822 Contact with and (suspected) exposure to COVID-19
CPT/HCPCS: 36415; 71046; 74177; 74181; 76705; 80048; 80053; 81003; 82150; 82247; 82248; 83690; 83735; 84484; 85025; 85610; 85730; 87040; 87635; 88304; 93005; 96361; 96374; 96375; 99285

== ENCOUNTER → 2021-12-31 | Outpatient (CLI) | payer BC ==
--- NOTE | 2022-01-01 07:58 | ECHOF ---
Referral Reason:I10 HTN MEASUREMENTS -------- HEIGHT: 175.3 cm WEIGHT: 81.6 kg BP: RVIDd: 2.6 cm (< 3.3) IVSd: 1.2 cm (0.6 - 1.1) LVIDd: 4.7 cm (3.9 - 5.3) LVPWd: 1.3 cm (0.6 - 1.1) IVSs: 1.9 cm LVIDs: 3.3 cm LVPWs: 1.8 cm LAESV Index (A-L): 23.11 ml/m Ao Diam: 3.0 cm (2.0 - 3.7) AV Cusp: 2.2 cm (1.5 - 2.6) LA Diam: 2.4 cm (2.7 - 3.8) MV EXCURSION: 18.048 mm (> 18.000) MV EF SLOPE: 143 mm/s (70 - 150) EPSS: 0.6 cm MV E Rajesh: 0.91 m/s MV DecT: 214 ms MV A Rajesh: 0.79 m/s MV E/A Ratio: 1.15 RAP: 5.00 mmHg RVSP: 13.69 mmHg FINDINGS -------- Sinus rhythm. This was a technically adequate study. The left ventricular size is normal. Left ventricular wall thickness is normal. Overall left vent ricular systolic function is normal with, an EF between 55 - 60 %. The diastolic filling pattern is normal for the age of the patient 13.09. The right ventricle is normal in size. Normal LA size by volume 22+/-6 ml/m2. The right atrial size is normal. The aortic valve is trileaflet, and appears structurally normal. No aortic stenosis or regurgitation. The mitral valve is normal. There is trace mitral regurgitation. The tricuspid valve appears structurally normal. Mild tricuspid regurgitation present. Right vent ricular systolic pressure is normal at < 35 mmHg. There is no pulmonic regurgitation present. The aortic root size is normal. Normal inferior vena cava with normal inspiratory collapse consistent with estimated right atrial pre ssure of 5 mmHg. There is no pericardial effusion. CONCLUSIONS -------- 1. Left ventricular wall thickness is normal. 2. Overall left ventricular systolic function is normal with, an EF between 55 - 60 %. 3. Normal LA size by volume 22+/-6 ml/m2. 4. The aortic valve is trileaflet, and appears structurally normal. No aortic stenosis or regurgitati on. 5. There is trace mitral regurgitation. 6. Mild tricuspid regurgitation present. 7. There is no pericardial effusion. JAVA APPLICATION DEVELOPER: Viridiana Coyle RDCS
== END | disposition home or self-care (01) ==
LOC: RADECHMAIN 14:49
PROVIDERS: ATTEND Internal Medicine Geriatric Medicine
DX: I08.1 Rheumatic disorders of both mitral and tricuspid valves (principal); I10 Essential (primary) hypertension
CPT/HCPCS: 93306

== ENCOUNTER 2022-01-19 10:36 | Inpatient (IN) | payer BC ==
--- NOTE | 2022-01-19 12:43 | XR ---
EXAMINATION TYPE: XR chest 2V DATE OF EXAM: 01/19/2022 COMPARISON: 12/17/2021 TECHNIQUE: PA and lateral views submitted. HISTORY: Fever FINDINGS: The lungs are clear and there is no pneumothorax, pleural effusion, or focal pneumonia. Heart size normal. No overt failure. Mild hyperinflation. Surgical clips in the abdomen. IMPRESSION: 1. No acute process.
--- NOTE | 2022-01-19 12:52 | ED ---
General Adult HPI - General Chief complaint: Headache Stated complaint: Fever Time Seen by Provider: 01/19/22 11:28 Source: patient, family, RN notes reviewed Mode of arrival: ambulatory Limitations: no limitations - History of Present Illness Initial comments: 56-year-old male presents emergency Department chief complaint of headache, fever. Patient states he has not felt well for one week she states that he's had fever, chills and bodyaches states His been as high as 102 including last night. Patient has seen PCP multiple times and has had multiple phone calls patient had lab work, Harsh, influenza testing which was negative. They're now concerned that he may have some intra-abdominal abscess since he had surgery one month ago for cholecystectomy. Patient states he feels very weak, run down. Denies any neck pain or neck stiffness. He states the headache is more diffuse in nature. He denies dysuria hematuria no specific diarrhea constipation. - Related Data Home Medications Medication Instructions Recorded Confirmed Nitroglycerin Sl Tabs [Nitrostat] 0.4 mg SUBLINGUAL Q5M PRN 12/17/21 01/19/22 Cetirizine HCl [Zyrtec] 10 mg PO DAILY 01/19/22 01/19/22 Docusate [Colace] 100 mg PO DAILY PRN 01/19/22 01/19/22 Multivitamins, Thera [Multivitamin 1 tab PO DAILY 01/19/22 01/19/22 (formulary)] Previous Rx's Medication Instructions Recorded amLODIPine [Norvasc] 10 mg PO HS tab 12/21/21 Allergies Allergy/AdvReac Type Severity Reaction Status Date / Time No Known Allergies Allergy Verified 01/19/22 13:01 Review of Systems ROS Statement: Those systems with pertinent positive or pertinent negative responses have been documented in the HPI. ROS Other: All systems not noted in ROS Statement are negative. Past Medical History Past Medical History: Hypertension Additional Past Medical History / Comment(s): seasonal allergies History of Any Multi-Drug Resistant Organisms: None Reported Past Surgical History: Heart Catheterization, Hernia Repair Past Anesthesia/Blood Transfusion Reactions: No Reported Reaction Past Psychological History: No Psychological Hx Reported Smoking Status: Never smoker Past Alcohol Use History: Occasional Past Drug Use History: None Reported General Exam Limitations: no limitations General appearance: alert, in no apparent distress Head exam: Present: atraumatic, normocephalic, normal inspection Eye exam: Present: normal appearance, PERRL, EOMI. Absent: scleral icterus, conjunctival injection, periorbital swelling ENT exam: Present: normal exam, normal oropharynx, mucous membranes moist Neck exam: Present: normal inspection, full ROM. Absent: tenderness, meningismus, lymphadenopathy Respiratory exam: Present: normal lung sounds bilaterally. Absent: respiratory distress, wheezes, rales, rhonchi, stridor Cardiovascular Exam: Present: regular rate, normal rhythm, normal heart sounds. Absent: systolic murmur, diastolic murmur, rubs, gallop, clicks GI/Abdominal exam: Present: soft, normal bowel sounds. Absent: distended, t enderness, guarding, rebound, rigid Back exam: Absent: CVA tenderness (R), CVA tenderness (L) Neurological exam: Present: alert Skin exam: Present: warm, dry, intact, normal color. Absent: rash Course Vital Signs 01/19/22 01/19/22 10:53 13:30 Temperature 98.9 F 99.4 F Pulse Rate 81 79 Respiratory 20 18 Rate Blood Pressure 133/90 133/93 O2 Sat by Pulse 98 98 Oximetry Medical Decision Making - Medical Decision Making CT shows evidence of fluid collection with a pocket of air noted in the gallbladder fossa. Patient's case discussed with on-call surgeon Dr. Donohue for Dr. Haney who recommends patient be placed on Unasyn, consult interventional radiology - Lab Data Result diagrams: 01/19/22 12:02 01/19/22 12:02 Lab Results 01/19/22 01/19/22 01/19/22 Range/Units 12:02 12:02 12:02 WBC 8.9 (3.8-10.6) k/uL RBC 5.00 (4.30-5.90) m/uL Hgb 15.0 (13.0-17.5) gm/dL Hct 44.1 (39.0-53.0) % MCV 88.2 (80.0-100.0) fL MCH 29.9 (25.0-35.0) pg MCHC 33.9 (31.0-37.0) g/dL RDW 13.0 (11.5-15.5) % Plt Count 240 (150-450) k/uL MPV 7.3 Sodium 132 L (137-145) mmol/L Potassium 4.2 (3.5-5.1) mmol/L Chloride 97 L (98-107) mmol/L Carbon Dioxide 30 (22-30) mmol/L Anion Gap 5 mmol/L BUN 13 (9-20) mg/dL Creatinine 0.75 (0.66-1.25) mg/dL Est GFR (CKD-EPI)AfAm >90 (>60 ml/min/1.73 sqM) Est GFR (CKD-EPI)NonAf >90 (>60 ml/min/1.73 sqM) Glucose 100 H (74-99) mg/dL Plasma Lactic Acid Nikhil (0.7-2.0) mmol/L Calcium 8.7 (8.4-10.2) mg/dL Total Bilirubin 1.4 H (0.2-1.3) mg/dL AST 199 H (17-59) U/L ALT 277 H (4-49) U/L Alkaline Phosphatase 618 H (38-126) U/L Total Protein 7.3 (6.3-8.2) g/dL Albumin 3.9 (3.5-5.0) g/dL Urine Color Urine Appearance (Clear) Urine pH (5.0-8.0) Ur Specific [place] (1.001-1.035) Urine Protein (Negative) Urine Glucose (UA) (Negative) Urine Ketones (Negative) Urine Blood (Negative) Urine Nitrite (Negative) Urine Bilirubin (Negative) Urine Urobilinogen (<2.0) mg/dL Ur Leukocyte Esterase (Negative) Urine RBC (0-5) /hpf Urine WBC (0-5) /hpf Ur Squamous Epith Cells (0-4) /hpf Hyaline Casts (0-2) /lpf Urine Mucus (None) /hpf Coronavirus (PCR) (Not Detectd) Heterophile Antibody Negative (Negative) Influenza Type A RNA (Not Detectd) Influenza Type B (PCR) (Not Detectd) 01/19/22 01/19/22 01/19/22 Range/Units 12:02 12:02 12:02 WBC (3.8-10.6) k/uL RBC (4.30-5.90) m/uL Hgb (13.0-17.5) gm/dL Hct (39.0-53.0) % MCV (80.0-100.0) fL MCH (25.0-35.0) pg MCHC (31.0-37.0) g/dL RDW (11.5-15.5) % Plt Count (150-450) k/uL MPV Sodium (137-145) mmol/L Potassium (3.5-5.1) mmol/L Chloride (98-107) mmol/L Carbon Dioxide (22-30) mmol/L Anion Gap mmol/L BUN (9-20) mg/dL Creatinine (0.66-1.25) mg/dL Est GFR (CKD-EPI)AfAm (>60 ml/min/1.73 sqM) Est GFR (CKD-EPI)NonAf (>60 ml/min/1.73 sqM) Glucose (74-99) mg/dL Plasma Lactic Acid Nikhil 1.0 (0.7-2.0) mmol/L Calcium (8.4-10.2) mg/dL Total Bilirubin (0.2-1.3) mg/dL AST (17-59) U/L ALT (4-49) U/L Alkaline Phosphatase (38-126) U/L Total Protein (6.3-8.2) g/dL Albumin (3.5-5.0) g/dL Urine Color Urine Appearance (Clear) Urine pH (5.0-8.0) Ur Specific [place] (1.001-1.035) Urine Protein (Negative) Urine Glucose (UA) (Negative) Urine Ketones (Negative) Urine Blood (Negative) Urine Nitrite (Negative) Urine Bilirubin (Negative) Urine Urobilinogen (<2.0) mg/dL Ur Leukocyte Esterase (Negative) Urine RBC (0-5) /hpf Urine WBC (0-5) /hpf Ur Squamous Epith Cells (0-4) /hpf Hyaline Casts (0-2) /lpf Urine Mucus (None) /hpf Coronavirus (PCR) Not Detected (Not Detectd) Heterophile Antibody (Negative) Influenza Type A RNA Not Detected (Not Detectd) Influenza Type B (PCR) Not Detected (Not Detectd) 01/19/22 Range/Units 12:02 WBC (3.8-10.6) k/uL RBC (4.30-5.90) m/uL Hgb (13.0-17.5) gm/dL Hct (39.0-53.0) % MCV (80.0-100.0) fL MCH (25.0-35.0) pg MCHC (31.0-37.0) g/dL RDW (11.5-15.5) % Plt Count (150-450) k/uL MPV Sodium (137-145) mmol/L Potassium (3.5-5.1) mmol/L Chloride (98-107) mmol/L Carbon Dioxide (22-30) mmol/L Anion Gap mmol/L BUN (9-20) mg/dL Creatinine (0.66-1.25) mg/dL Est GFR (CKD-EPI)AfAm (>60 ml/min/1.73 sqM) Est GFR (CKD-EPI)NonAf (>60 ml/min/1.73 sqM) Glucose (74-99) mg/dL Plasma Lactic Acid Nikhil (0.7-2.0) mmol/L Calcium (8.4-10.2) mg/dL Total Bilirubin (0.2-1.3) mg/dL AST (17-59) U/L ALT (4-49) U/L Alkaline Phosphatase (38-126) U/L Total Protein (6.3-8.2) g/dL Albumin (3.5-5.0) g/dL Urine Color Yellow Urine Appearance Clear (Clear) Urine pH 6.0 (5.0-8.0) Ur Specific [place] 1.012 (1.001-1.035) Urine Protein Trace H (Negative) Urine Glucose (UA) Negative (Negative) Urine Ketones 2+ H (Negative) Urine Blood Trace H (Negative) Urine Nitrite Negative (Negative) Urine Bilirubin Negative (Negative) Urine Urobilinogen <2.0 (<2.0) mg/dL Ur Leukocyte Esterase Negative (Negative) Urine RBC <1 (0-5) /hpf Urine WBC 2 (0-5) /hpf Ur Squamous Epith Cells <1 (0-4) /hpf Hyaline Casts 1 (0-2) /lpf Urine Mucus Occasional H (None) /hpf Coronavirus (PCR) (Not Detectd) Heterophile Antibody (Negative) Influenza Type A RNA (Not Detectd) Influenza Type B (PCR) (Not Detectd) Disposition Clinical Impression: Abdominal abscess Disposition: ADMITTED IP TO THIS HOSP Referrals: Jeane Rey MD [Primary Care Provider] - 1-2 days
[2022-01-19 12:54] LABS: Appearance,Urine Clear (Clear); Bilirubin,Urine Negative (Negative); Blood,Urine Trace (Negative); Color,Urine Yellow; Glucose,Urine (UA) Negative (Negative); Hyaline Casts,Urine 1 /lpf (0-2); Ketones,Urine 2+ (Negative); Leukocyte Esterase,Urine Negative (Negative); Mucus,Urine Occasional /hpf; Nitrite,Urine Negative (Negative); Protein,Urine Trace (Negative); RBC,Urine <1 /hpf (0-5); Specific Gravity,Urine 1.012 (1.001-1.035); Squamous Epithelial Cell,Urine <1 /hpf (0-4); Urobilinogen,Urine <2.0 mg/dL (<2.0); WBC,Urine 2 /hpf (0-5)
[2022-01-19 12:59] LABS: HCT 44.1 % (39.0-53.0); MCH 29.9 pg (25.0-35.0); MCHC 33.9 g/dL (31.0-37.0); MCV 88.2 fL (80.0-100.0); Mean Platelet Volume 7.3; Platelet Count 240 k/uL (150-450); WBC 8.9 k/uL (3.8-10.6)
[2022-01-19 13:03] LABS: ALT 277 U/L (4-49); AST 199 U/L (17-59); African American GFR (CKD) >90 (>60 ml/min/1.73 sqM); Albumin 3.9 g/dL (3.5-5.0); Alkaline Phosphatase 618 U/L (38-126); Anion Gap 5 mmol/L; Blood Urea Nitrogen 13 mg/dL (9-20); Calcium 8.7 mg/dL (8.4-10.2); Carbon Dioxide 30 mmol/L (22-30); Chloride 97 mmol/L (98-107); Glucose 100 mg/dL (74-99); Non-African American GFR(CKD) >90 (>60 ml/min/1.73 sqM); Potassium 4.2 mmol/L (3.5-5.1); Sodium 132 mmol/L (137-145); Total Bilirubin 1.4 mg/dL (0.2-1.3); Total Protein 7.3 g/dL (6.3-8.2)
--- NOTE | 2022-01-19 13:05 | CT ---
EXAMINATION TYPE: CT brain wo con DATE OF EXAM: 01/19/2022 COMPARISON: CT dated 03/27/2013 HISTORY: Headache x 7 days, s/p cholecystectomy. CT DLP: 1094.4 mGycm Automated exposure control for dose reduction was used. TECHNIQUE: CT scan of the brain is performed without IV contrast administration. FINDINGS: Unremarkable morphology of the cerebral hemispheres, cerebellum and brainstem. No acute intracranial hemorrhage. No gross acute cortical infarct. No midline shift, herniation or ventriculectomy. Unremarkable rosas-white matter differentiation, basal cisterns, sella and CP angles. No gross space-o ccupying lesion, vasogenic edema or mass effect. Unremarkable orbits. Left maxillary sinus polyp/retention cyst. Clear mastoid air cells. Unremarkable calvarial bones. IMPRESSION: No acute intracranial abnormality or gross space-occupying lesion by this nonenhanced CT scan.
--- NOTE | 2022-01-19 13:14 | CT ---
EXAMINATION TYPE: CT abdomen pelvis w con DATE OF EXAM: 01/19/2022 COMPARISON: CT dated 12/17/2021 HISTORY: Fever, s/p cholecystectomy. CT DLP: 892.8 mGycm Automated exposure control for dose reduction was used. TECHNIQUE: Helical acquisition of images was performed from the lung bases through the pelvis. CONTRAST: Performed without Oral Contrast and with IV Contrast, patient injected with 100 mL of Isovue 300. FINDINGS: LUNG BASES: Minimal bilateral basal pulmonary dependent densities reticulations. LIVER/GB: Interval cholecystectomy. Fluid collection is seen at the cholecystectomy bed inseparable f rom the adjacent portion of the liver measuring 2.5 x 3.3 x 3.6 cm with a tiny air bubble within. Thi s could represent postoperative fluid however abscess cannot be excluded, please correlate clinically . No definite hepatic focal lesion identified. PANCREAS: No significant abnormality is seen. SPLEEN: No significant abnormality is seen. ADRENALS: No significant abnormality is seen. KIDNEYS: No significant abnormality is seen. FREE AIR: No free air is visualized. RETROPERITONEAL ADENOPATHY: No pathologically enlarged lymph nodes. REPRODUCTIVE ORGANS: Slightly bulky prostate. Unremarkable seminal vesicles. URINARY BLADDER: No significant abnormality is seen. PELVIC ADENOPATHY: No pathologically enlarged OSSEOUS STRUCTURES: No aggressive bone lesion. BOWEL: Moderate fecal loading of the colon. No evidence of bowel obstruction. Normal appendix. OTHER: Minimal arterial atherosclerotic calcifications. Minimal free pelvic fluid. IMPRESSION: Interval cholecystectomy. Fluid collection is seen at the cholecystectomy bed as described above whic h could represent postoperative fluid however abscess cannot be excluded, please correlate clinically . Other incidental findings as described above.
[2022-01-19] MEDS ORDERED: AMPICILLIN-SULBACTAM 3 GM in SODIUM CHLORIDE 0.9% 100 ML IVPB STA (13:50)
[2022-01-19] MEDS ORDERED: NALOXONE 0.4 MG/ML 1 ML VIAL IV PRN (13:51)
[2022-01-19] MEDS ORDERED: ONDANSETRON 4 MG/2 ML VIAL IVP PRN (13:51)
[2022-01-19] MEDS: SODIUM CHLORIDE 0.9% 1,000 ML IV SCH (14:00)
[2022-01-19] MEDS ORDERED: diphenhydrAMINE 50 MG/ML 1 ML VIAL IVP STA (14:01)
[2022-01-19] MEDS ORDERED: METOCLOPRAMIDE 5 MG/ML 2 ML VIAL IVP STA (14:01)
--- NOTE | 2022-01-19 14:54 | P.GSHP ---
History of Present Illness H&P Date: 01/19/22 Chief Complaint: Fever and shortness of breath, epigastric pain. Previous c holecystectomy Patient's a 56-year-old gentleman who underwent laparoscopic cholecystectomy with Dr. Haney precisely 1 month ago. He tells me he was admitted for obstructive choledocholithiasis. There was consideration towards ERCP with the patient is jaundiced cleared with observation. He tells me a subsequent MRCP showed no evidence of residual stone or obstruction. He recalls being told the time of surgery there were some inflammatory changes about the gallbladder. He was discharged from the hospital and has since followed up with Dr. Haney in the office and was recently cleared to resume normal activities. I will over one week ago he was doing some painting and relatively strenuous activity and shortly afterwards he started noting some issues with shortness of breath on exertion, vague epigastric pains and fever waxing and waning but as high as 102F. He presents to the emergency room today with his for further assessment. He denies specific chest pains. No known personal history of heart attack, stroke, DVT or pulmonary embolus. Not maintained on any manner of oral anticoagulants. He is on medications for hypertension, no known history of diabetes. A computed tomography scan of the head showed no acute findings, chest x-ray similarly showed no acute findings. Computed tomography scan of abdomen and pelvis showed an approximately 3.5 x 3 cm fluid collection at the liver fossa and small focus of contained air adjacent to his surgical clips from cholecystectomy. Common duct is difficult to make out, and certainly not dilated. There is not much in the way of adjacent inflammatory changes. No other intra-abdominal fluid collection or free air noted, no evidence of bowel obstruction, no evidence of abdominal wall hernia. Laboratory studies show a ve ry mild elevation of total bilirubin at 1.4 just above the threshold of normal. Transaminases are elevated as is alkaline phosphatase. White blood cell count is normal range. Images were reviewed by interventional radiology and it was was felt that this fluid collection of the liver fossa is likely too small to pursue with image guided drain placement and may be the kind of thing that would resolve with antibiotics or observation. - Review of Systems All systems: negative Past Medical History Past Medical History: Hypertension Additional Past Medical History / Comment(s): seasonal allergies History of Any Multi-Drug Resistant Organisms: None Reported Past Surgical History: Heart Catheterization, Hernia Repair Past Anesthesia/Blood Transfusion Reactions: No Reported Reaction Past Psychological History: No Psychological Hx Reported Smoking Status: Never smoker Past Alcohol Use History: Occasional Past Drug Use History: None Reported Medications and Allergies Home Medications Medication Instructions Recorded Confirmed Type Nitroglycerin Sl Tabs [Nitrostat] 0.4 mg SUBLINGUAL Q5M PRN 12/17/21 01/19/22 History amLODIPine [Norvasc] 10 mg PO HS tab 12/21/21 01/19/22 Rx Cetirizine HCl [Zyrtec] 10 mg PO DAILY 01/19/22 01/19/22 History Docusate [Colace] 100 mg PO DAILY PRN 01/19/22 01/19/22 History Multivitamins, Thera [Multivitamin 1 tab PO DAILY 01/19/22 01/19/22 History (formulary)] Allergies Allergy/AdvReac Type Severity Reaction Status Date / Time No Known Allergies Allergy Verified 01/19/22 13:01 Surgical - Exam Osteopathic Statement: *. No significant issues noted on an osteopathic structural exam other than those noted in the History and Physical/Consult. Vital Signs Temp Pulse Resp BP Pulse Ox 98.9 F 81 20 133/90 98 01/19/22 10:53 01/19/22 10:53 01/19/22 10:53 01/19/22 10:53 01/19/22 10:53 - General well developed, no distress - Eyes PERRL, normal ocular movement - ENT normal mucosa, no hearing loss - Respiratory normal expansion, normal respiratory effort, clear to auscultation - Cardiovascular Rhythm: regular - Abdomen Abdomen is soft with very mild epigastric and right upper quadrant tenderness to deep palpation. No guarding rebound or distention. Laparoscopic incisions are healing well without signs of subcutaneous fluid collection for port site hernia. No clinical signs of jaundice. Aparicio's and Brian's signs are absent. - Neurologic normal coordination, normal sensation - Psychiatric oriented to time, oriented to person, oriented to place, speech is normal, memory intact Results - Labs 01/19/22 12:02 01/19/22 12:02 Abnormal Lab Results - Last 24 Hours (Table) 01/19/22 01/19/22 Range/Units 12:02 12:02 Sodium 132 L (137-145) mmol/L Chloride 97 L (98-107) mmol/L Glucose 100 H (74-99) mg/dL Total Bilirubin 1.4 H (0.2-1.3) mg/dL AST 199 H (17-59) U/L ALT 277 H (4-49) U/L Alkaline Phosphatase 618 H (38-126) U/L Urine Protein Trace H (Negative) Urine Ketones 2+ H (Negative) Urine Blood Trace H (Negative) Urine Mucus Occasional H (None) /hpf Diabetes panel 01/19/22 Range/Units 12:02 Sodium 132 L (137-145) mmol/L Potassium 4.2 (3.5-5.1) mmol/L Chloride 97 L (98-107) mmol/L Carbon Dioxide 30 (22-30) mmol/L BUN 13 (9-20) mg/dL Creatinine 0.75 (0.66-1.25) mg/dL Glucose 100 H (74-99) mg/dL Calcium 8.7 (8.4-10.2) mg/dL AST 199 H (17-59) U/L ALT 277 H (4-49) U/L Alkaline Phosphatase 618 H (38-126) U/L Total Protein 7.3 (6.3-8.2) g/dL Albumin 3.9 (3.5-5.0) g/dL Calcium panel 01/19/22 Range/Units 12:02 Calcium 8.7 (8.4-10.2) mg/dL Albumin 3.9 (3.5-5.0) g/dL Pituitary panel 01/19/22 Range/Units 12:02 Sodium 132 L (137-145) mmol/L Potassium 4.2 (3.5-5.1) mmol/L Chloride 97 L (98-107) mmol/L Carbon Dioxide 30 (22-30) mmol/L BUN 13 (9-20) mg/dL Creatinine 0.75 (0.66-1.25) mg/dL Glucose 100 H (74-99) mg/dL Calcium 8.7 (8.4-10.2) mg/dL Adrenal panel 01/19/22 Range/Units 12:02 Sodium 132 L (137-145) mmol/L Potassium 4.2 (3.5-5.1) mmol/L Chloride 97 L (98-107) mmol/L Carbon Dioxide 30 (22-30) mmol/L BUN 13 (9-20) mg/dL Creatinine 0.75 (0.66-1.25) mg/dL Glucose 100 H (74-99) mg/dL Calcium 8.7 (8.4-10.2) mg/dL Total Bilirubin 1.4 H (0.2-1.3) mg/dL AST 199 H (17-59) U/L ALT 277 H (4-49) U/L Alkaline Phosphatase 618 H (38-126) U/L Total Protein 7.3 (6.3-8.2) g/dL Albumin 3.9 (3.5-5.0) g/dL - Imaging Chest x-ray: report reviewed CT scan - abdomen: report reviewed, image reviewed Assessment and Plan Assessment: 56-year-old gentleman presenting with indistinct epigastric pain and fever status post cholecystectomy approximately 1 month ago pursuit of the inpatient setting for obstructing choledocholithiasis. Fluid collection at the gal lbladder fossa without regional inflammatory changes seen on CT, small focus of air. I suspect this relates to bile leak at the cystic duct stump or possibly duct of Luschka, possibly precipitated by retained stone or other common duct obstruction and high back pressure. Imaging findings are not really compelling for abscess, differential diagnosis would include a potentially infected postoperative hematoma. No hard signs for sepsis, elevated liver function studies without significant jaundice. Plan: Patient will be admitted to my care, started on empiric antibiotics with Unasyn. The liquids as tolerated for now. Maintenance IV fluids. EKG for completeness to exclude acute coronary syndrome. HIDA scan ordered, if there is evidence of lingering bile leak will need to pursue GI consultation for potential ERCP and stent. Daily labs, home medications will be resumed as appropriate. Time with Patient: Greater than 30
[2022-01-19] MEDS ORDERED: NITROGLYCERIN SL TABS 0.4 MG TAB SUBLINGUAL PRN (14:59)
[2022-01-19] MEDS ORDERED: DOCUSATE 100 MG CAP PO PRN (14:59)
[2022-01-19 15:19] LABS: Lymphocytes # (M) 1.96 k/uL (1.0-4.8); Monocytes # (M) 1.07 k/uL (0-1.0); Neutrophils # (M) 5.87 k/uL (1.3-7.7); Neutrophils % (M) 66 %; Nucleated Red Blood Cells 0 /100 WBC (0-0); Total Cells Counted 100
[2022-01-19 15:32] LABS: Prothrombin Time 10.6 sec (9.0-12.0)
[2022-01-19] MEDS: HEPARIN SODIUM,PORCINE/PF 5,000 UNIT/0.5 ML SYRINGE SQ SCH ×2 (16:11→23:43)
[2022-01-19] MEDS: ACETAMINOPHEN TAB 325 MG TAB PO PRN (19:13)
[2022-01-19] MEDS: AMPICILLIN-SULBACTAM 3 GM in SODIUM CHLORIDE 0.9% 100 ML IVPB SCH ×2 (19:13→23:42)
[2022-01-19] MEDS: amLODIPine 10 MG TAB PO SCH (19:13)
[2022-01-20] MEDS: SODIUM CHLORIDE 0.9% 1,000 ML IV SCH ×2 (04:28→15:45)
[2022-01-20] MEDS: AMPICILLIN-SULBACTAM 3 GM in SODIUM CHLORIDE 0.9% 100 ML IVPB SCH ×4 (05:24→23:19)
--- NOTE | 2022-01-20 08:13 | NM ---
EXAMINATION TYPE: NM hepatobiliary wo EF DATE OF EXAM: 01/20/2022 COMPARISON: CT 01/19/2022 HISTORY: Status post cholecystectomy, fever, abdominal pain TECHNIQUE: After the intravenous administration of 5 mCi Tc 99m Mebrofenin hepatobiliary scintigraphy is performed. Immediate images post injection. FINDINGS: Prompt homogenous radio pharmaceutical uptake noted within the liver. Gallbladder is not se en consistent with post cholecystectomy. Biliary activity detected by 10 minutes, small bowel activi ty detected by 16 minutes. No abnormal accumulation identified. IMPRESSION: Bile leak is not evident.
[2022-01-20] MEDS: LORATADINE 10 MG TAB PO SCH (08:53)
[2022-01-20] MEDS: HEPARIN SODIUM,PORCINE/PF 5,000 UNIT/0.5 ML SYRINGE SQ SCH ×3 (08:53→23:19)
[2022-01-20 09:38] LABS: African American GFR (CKD) 123.1 (60.0-200.0); Albumin 3.7 g/dL (3.8-4.9); Albumin/Globulin Ratio 1.42 (1.60-3.17); Anion Gap 13.5 mmol/L (10.00-18.00); BUN/Creat Ratio 16.57 Ratio (12.00-20.00); Blood Urea Nitrogen 11.6 mg/dL (9.0-27.0); Calcium 8.3 mg/dL (8.7-10.3); Carbon Dioxide 22.5 mmol/L (20.0-27.5); Globulin 2.6 g/dL (1.6-3.3); Non-African American GFR(CKD) 106.2 (60.0-200.0); Potassium 4.3 mmol/L (3.5-5.5); Total Protein 6.3 g/dL (6.2-8.2)
--- NOTE | 2022-01-20 10:27 | P.PN ---
Subjective Progress Note Date: 01/20/22 Principal diagnosis: Fever and epigastric pain, history of cholecystectomy for choledocholithiasis and acute cholecystitis with fluid collection at the liver fossa Patient seen and examined at bedside. Admits to some subjective fever and chills overnight as well as a headache today. Minimal epigastric pain, worse with pressure. Appetite is minimal. Admits to normal bowel movement yesterday. HIDA scan was obtained this morning, images and report were reviewed. There is no evidence of bile leak, there is passage of contrast into the duodenum and jejunum readily apparent. Morning laboratory studies show AST and ALT of 161 and 254, alkaline phosphatase 604, trending down and only very slightly. Bilirubin is 1.0. Amylase and lipase are within normal limits. Objective - Vital Signs Vital signs: Vital Signs Temp 98.0 F 01/20/22 08:00 Pulse 85 01/20/22 08:00 Resp 17 01/20/22 08:00 BP 142/82 01/20/22 08:00 Pulse Ox 97 01/20/22 08:00 Intake & Output 01/19/22 01/20/22 01/20/22 18:59 06:59 18:59 Intake Total 225 Balance 225 Weight 81.647 kg Intake: IV 225 Sodium Chloride 0.9% 1, 225 000 ml @ 75 mls/hr IV . [id number] [facility] Rx#:[id number] Other: Voiding Method Toilet Toilet # Voids 3 # Bowel Movements 0 - Constitutional General appearance: Present: average body habitus, no acute distress - EENT Eyes: Present: PERRLA ENT: Present: hearing grossly normal Ears: bilateral: normal - Respiratory Respiratory: bilateral: CTA - Cardiovascular Rhythm: regular - Gastrointestinal Gastrointestinal Comment(s): Abdomen is soft, very minimal epigastric tenderness to deep palpation, no guarding rebound or distention. Exam slightly improved compared to yesterday. No clinical signs of jaundice or port site hernia. Incisions are healing well. - Neurologic Neurologic: Present: CNII-XII intact - Musculoskeletal Musculoskeletal: Present: strength equal bilaterally - Psychiatric Psychiatric: Present: A&O x's 3, appropriate affect, intact judgment & insight - Labs CBC & Chem 7: 01/19/22 12:02 01/20/22 05:50 Labs: Abnormal Lab Results - Last 24 Hours (Table) 03/06/0501/19/22 01/19/22 Range/Units 12:02 12:02 12:02 Monocytes # (Manual) 1.07 H (0-1.0) k/uL Sodium 132 L (137-145) mmol/L Chloride 97 L (98-107) mmol/L Glucose 100 H (74-99) mg/dL Calcium (8.7-10.3) mg/dL Total Bilirubin 1.4 H (0.2-1.3) mg/dL AST 199 H (17-59) U/L ALT 277 H (4-49) U/L Alkaline Phosphatase 618 H (38-126) U/L Albumin (3.8-4.9) g/dL Albumin/Globulin Ratio (1.60-3.17) g/dL Urine Protein Trace H (Negative) Urine Ketones 2+ H (Negative) Urine Blood Trace H (Negative) Urine Mucus Occasional H (None) /hpf 01/20/22 Range/Units 05:50 Monocytes # (Manual) (0-1.0) k/uL Sodium (137-145) mmol/L Chloride (98-107) mmol/L Glucose (74-99) mg/dL Calcium 8.3 L (8.7-10.3) mg/dL Total Bilirubin (0.2-1.3) mg/dL AST 161 H (17-59) U/L ALT 254 H (4-49) U/L Alkaline Phosphatase 604 H (38-126) U/L Albumin 3.7 L (3.8-4.9) g/dL Albumin/Globulin Ratio 1.42 L (1.60-3.17) g/dL Urine Protein (Negative) Urine Ketones (Negative) Urine Blood (Negative) Urine Mucus (None) /hpf Assessment and Plan Assessment: 56-year-old gentleman presenting with indistinct epigastric pain and fever status post cholecystectomy approximately 1 month ago pursuit of the inpatient setting for obstructing choledocholithiasis. Fluid collection at the gallbladder fossa without regional inflammatory changes seen on CT, small focus of air. HIDA scan shows no obstruction or bile leak presently. Abdominal exam is essentially benign. No hard signs for sepsis. My underlying suspicion at this point given the pattern on his liver function studies is that he may have had a retained stone that caused a transient obstruction and has subsequently passed. Fluid collection at the liver fossa may or may not be of significance. Regardless, at the time being it would appear to be too small to pursue with image guided drainage. Plan: Continue with empiric Unasyn, advance to soft diet as tolerated. Maintenance rate IV fluids. We'll continue to follow serial labs, I suspect his transaminases to continue to show gradual improvement. If not, will need to pursue potential infectious etiologies for hepatitis. In the meantime will consult infectious disease for fever of unknown origin to get their perspective on the issue. Patient's presenting chest x-ray and CT he had in the emergency department showed no findings of significance, urinalysis was negative for UTI. Coronavirus and influenza screens were negative. Time with Patient: Greater than 30
--- NOTE | 2022-01-20 13:28 | P.CONS ---
History of Present Illness - Reason for Consult Consult date: 01/20/22 Severe headache, possible abscess, medical management Requesting physician: Robson Donohue - Chief Complaint Severe headache, abdominal pain with possible abscess. - History of Present Illness History of present illness 56-year-old male one of Dr. Rey patient was seen in our office for the last few years he was hospitalized on 12/18/2021 for severe abdominal pain was diagnosed with acute cholecystitis and cholelithiasis ended up seen Dr. Haney and had laparoscopy cystectomy done successfully on 12/19 2021. Patient ended up going home on December 21 and done well after a week or so developed to have slight increase headache with vague symptom with low-grade temperature on and off symptoms become much worse. Apparently patient had a virtual visits nor office over 10 days ago for worsening symptom with low-grade temperature fever or chills along with significant headache and sinus pressure in the frontal sinus area. Patient coded testing came back negative patient kept having his symptoms much worse. Patient ended up in the emergency department at [facility] on 01/19/2022 with above symptoms at the time was seen was running temperature of 102 with testing for his high fever and chills CAT scan of the abdomen shows questionable of fluid collection on the area of his gallbladder can be consistent with abscess. Patient was started on IV antibiotics and admitted to surgery service. Apparently HIDA scan came back negative today patient continues to have significant a headache on and off with slight pressure in the frontal head area. CT of the brain was performed on admission on 01/19/2022 came back negative. Patient temperature continue to be marginal at this point but patient does not require any intervention and agreed by general surgery to keep him on IV antibiotic and consult infectious disease for better choice. The patient kept having significant headache might require to have an MRI of the brain to exclude any possibility of smaller aneurysm also his CAT scan this point is not showing any sign of sinusitis patient will be on antibiotic if we add nasal spray and decongestant medication to treat sinusitis will be valuable option. ROS Constitutional: Denies chills, Denies fever, Denies lethargy, Denies malaise, Denies poor appetite, Denies weakness, Denies weight loss Eyes: denies decreased vision, denies diplopia, denies discharge, denies pain endorses jaundice Ears: deny: decreased hearing Ears, nose, mouth and throat: Denies dental pain, Denies headache, Denies nasal discharge, Denies nose pain Cardiovascular: Denies chest pain, Denies decreased exercise tolerance, Denies edema, Denies high blood pressure, Denies irregular heart beat, Denies palpit ations, Denies paroxysmal nocturnal dyspnea, Denies rapid heart beat, Denies shortness of breath Respiratory: Denies congestion, Denies cough, Denies cough with sputum, Denies dyspnea, Denies home oxygen, Denies wheezing Gastrointestinal: endorses abdominal pain, Denies change in bowel habits, Den ies coffee ground emesis, Denies early satiety, Denies excessive gas, Denies heartburn, Denies hematemesis, Denies hematochezia, Denies loss of appetite, Denies nausea, Denies vomiting Genitourinary: Denies dysuria, Denies flank pain, Denies kidney stones, Denies menorrhagia, Denies urgency, Denies urinary frequency Musculoskeletal: Denies gait dysfunction, Denies limitation of motion, Denies morning stiffness, Denies muscle cramps Integumentary: Denies rash, Denies wounds, Denies brittle nails, Denies change in hair/nails, Denies darkening of skin Neurological: Denies balance difficulties, Denies change in speech, Denies double vision, Denies gait dysfunction, Denies loss of vision, Denies motor disturbance, Denies numbness, Denies paralysis, Denies paresthesias, Denies seizures Psychiatric: Denies anxiety, Denies depression Endocrine: Denies excessive sweating, Denies excessive thirst, Denies high blood sugars, Denies palpitations Hematologic/Lymphatic: Denies easy bruising, Denies lymphadenopathy Social history Nonsmoker drinks occasionally once every week No illicit drug use Family history Mother - no significant medical history Father hypertension 2 sister no significant medical history PHYSICAL EXAMINATION Gen: This is a well-developed does not look in any respiratory distress. HEENT: Head is atraumatic, normocephalic. Pupils equal, round. Sclerae is anicteric. No neck rigidity at this point patient have mild sinus pressure in the frontal sinus area. NECK: Supple. No JVD. No lymphadenopathy. No thyromegaly. LUNGS: Clear to auscultation. No wheezes or rhonchi. No intercostal retrac tions. HEART: Regular rate and rhythm. No murmur. ABDOMEN: Soft. Bowel sounds are present. No masses. No tenderness. Incision from surgery had healed very well no sinus tenderness in the right upper quadrant or midepigastric area. EXTREMITIES: No pedal edema. No calf tenderness. NEUROLOGICAL: Patient is awake, alert and oriented x3. Cranial nerves 2 through 12 are grossly intact. ASSESSMENT AND PLAN 1. Abdominal pain and discomfort: 3 weeks after gallbladder surgery with fluid collection on the surgical site can be consistent with abscess, no clear abscess was found on either CT or HIDA scan at this point. Patient remain on IV antibiotic infectious disease consultation is done with no intervention required at this point. 2 severe headache: Not a clear etiology this is could be from the high temperature patient is going through CAT scan was negative patient keep having symptom and treating this with antibiotic try to bring her temperature down and even aggressive treatment for sinusitis does not improve it patient require to go for an MRI of the brain if will be approved by general surgery specially after the recent surgery went through. 3 hypertension: Continue Norvasc 5 mg a day with try to titrate medication to keep systolic blood pressure below 1:30. 4 hyperlipidemia: Has been on atorvastatin. 5 gastritis and GERD: Patient will continue PPI. 6 DVT prophylaxis: Patient is on heparin subcutaneous. CODE STATUS: Full code. Dr. Donohue thank you very much for the consult I can be any further help to please let me know. Past Medical History Past Medical History: Hypertension Additional Past Medical History / Comment(s): seasonal allergies History of Any Multi-Drug Resistant Organisms: None Reported Past Surgical History: Cholecystectomy, Heart Catheterization, Hernia Repair Past Anesthesia/Blood Transfusion Reactions: No Reported Reaction Past Psychological History: No Psychological Hx Reported Smoking Status: Never smoker Past Alcohol Use History: Occasional Past Drug Use History: None Reported - Past Family History Father Family Medical History: No Reported History Mother Family Medical History: No Reported History Medications and Allergies Home Medications Medication Instructions Recorded Confirmed Type Nitroglycerin Sl Tabs [Nitrostat] 0.4 mg SUBLINGUAL Q5M PRN 12/17/21 01/19/22 History amLODIPine [Norvasc] 10 mg PO HS tab 12/21/21 01/19/22 Rx Cetirizine HCl [Zyrtec] 10 mg PO DAILY 01/19/22 01/19/22 History Docusate [Colace] 100 mg PO DAILY PRN 01/19/22 01/19/22 History Multivitamins, Thera [Multivitamin 1 tab PO DAILY 01/19/22 01/19/22 History (formulary)] Allergies Allergy/AdvReac Type Severity Reaction Status Date / Time No Known Allergies Allergy Verified 01/19/22 13:01 Physical Exam Vitals: Vital Signs Temp Pulse Pulse Resp BP BP Pulse Ox 01/20/22 08:00 98.0 F 85 17 142/82 97 01/20/22 02:40 97.9 F 76 16 145/84 97 01/19/22 19:15 100.2 F H 86 143/76 97 01/19/22 16:47 99.3 F 78 18 154/89 98 01/19/22 13:30 99.4 F 79 18 133/93 98 Intake and Output 01/19/22 01/20/22 01/20/22 22:59 06:59 14:59 Intake Total 225 Balance 225 Intake: IV 225 Sodium Chloride 0.9% 1, 225 000 ml @ 75 mls/hr IV . [id number] [facility] Rx#:[id number] Other: Voiding Method Toilet Toilet # Voids 3 # Bowel Movements 0 Weight 81.647 kg Results CBC & Chem 7: 01/19/22 12:02 01/20/22 05:50 Labs: Abnormal Lab Results - Last 24 Hours (Table) 01/19/22 01/19/22 01/19/22 Range/Units 12:02 12:02 12:02 Monocytes # (Manual) 1.07 H (0-1.0) k/uL Sodium 132 L (137-145) mmol/L Chloride 97 L (98-107) mmol/L Glucose 100 H (74-99) mg/dL Calcium (8.7-10.3) mg/dL Total Bilirubin 1.4 H (0.2-1.3) mg/dL AST 199 H (17-59) U/L ALT 277 H (4-49) U/L Alkaline Phosphatase 618 H (38-126) U/L Albumin (3.8-4.9) g/dL Albumin/Globulin Ratio (1.60-3.17) g/dL Urine Protein Trace H (Negative) Urine Ketones 2+ H (Negative) Urine Blood Trace H (Negative) Urine Mucus Occasional H (None) /hpf 01/20/22 Range/Units 05:50 Monocytes # (Manual) (0-1.0) k/uL Sodium (137-145) mmol/L Chloride (98-107) mmol/L Glucose (74-99) mg/dL Calcium 8.3 L (8.7-10.3) mg/dL Total Bilirubin (0.2-1.3) mg/dL AST 161 H (17-59) U/L ALT 254 H (4-49) U/L Alkaline Phosphatase 604 H (38-126) U/L Albumin 3.7 L (3.8-4.9) g/dL Albumin/Globulin Ratio 1.42 L (1.60-3.17) g/dL Urine Protein (Negative) Urine Ketones (Negative) Urine Blood (Negative) Urine Mucus (None) /hpf
[2022-01-20] MEDS: ACETAMINOPHEN TAB 325 MG TAB PO PRN ×2 (15:45→21:56)
[2022-01-20] MEDS: amLODIPine 10 MG TAB PO SCH (19:58)
--- NOTE | 2022-01-20 23:49 | P.CONS ---
History of Present Illness - Reason for Consult Consult date: 01/20/22 Intra-abdominal abscess Requesting physician: Robson Donohue - Chief Complaint Fever and headache x 2 weeks - History of Present Illness Patient is a 56-year-old male with a past medical history significant for laparoscopic cholecystectomy for acute cholecystitis that was performed on 12/20/2021 patient was subsequently discharged home in stable condition patient apparently started having headache and fever approximately 2 weeks after his surgery and apparently the patient did have multiple work-up which came back negative with concern for possible intra-abdominal abscess the patient has been sent to the ER for further evaluation, on arrival to the ER the patient was initially afebrile last night he did have low-grade fever 100.2 F patient did have a normal white count kidney function has been normal liver enzymes are elevated urine was negative urbina PCR was negative influenza testing was negative patient did have a chest x-ray negative for acute pulmonary process he did have a CT of abdominal pelvis which did show 2.5 X3.3X 3.6 cm collection with tiny air bubble within concerning for postoperative fluid versus abscess patient also have a HIDA scan that was negative for any leak patient has been treated with Unasyn infectious disease was consulted for further management of antibiotic therapy, on questioning the patient mention he did have a some discomfort into the epigastric area for the last week or so more of a dull aching pain 2-3 out of 10 and no radiation nausea but no vomiting and no diarrhea Review of Systems Positive point has been mentioned in the HPI rest of the systems are negative Past Medical History Past Medical History: Hypertension Additional Past Medical History / Comment(s): seasonal allergies History of Any Multi-Drug Resistant Organisms: None Reported Past Surgical History: Cholecystectomy, Heart Catheterization, Hernia Repair Past Anesthesia/Blood Transfusion Reactions: No Reported Reaction Past Psychological History: No Psychological Hx Reported Smoking Status: Never smoker Past Alcohol Use History: Occasional Past Drug Use History: None Reported - Past Family History Father Family Medical History: No Reported History Mother Family Medical History: No Reported History Medications and Allergies Home Medications Medication Instructions Recorded Confirmed Type Nitroglycerin Sl Tabs [Nitrostat] 0.4 mg SUBLINGUAL Q5M PRN 12/17/21 01/19/22 History amLODIPine [Norvasc] 10 mg PO HS tab 12/21/21 01/19/22 Rx Cetirizine HCl [Zyrtec] 10 mg PO DAILY 01/19/22 01/19/22 History Docusate [Colace] 100 mg PO DAILY PRN 01/19/22 01/19/22 History Multivitamins, Thera [Multivitamin 1 tab PO DAILY 01/19/22 01/19/22 History (formulary)] Allergies Allergy/AdvReac Type Severity Reaction Status Date / Time No Known Allergies Allergy Verified 01/19/22 13:01 Physical Exam Vitals: Vital Signs Temp Pulse Pulse Resp BP BP Pulse Ox 01/20/22 08:00 98.0 F 85 17 142/82 97 01/20/22 02:40 97.9 F 76 16 145/84 97 01/19/22 19:15 100.2 F H 86 143/76 97 01/19/22 16:47 99.3 F 78 18 154/89 98 01/19/22 13:30 99.4 F 79 18 133/93 98 01/19/22 10:53 98.9 F 81 20 133/90 98 Intake and Output 01/19/22 01/20/22 01/20/22 22:59 06:59 14:59 Intake Total 225 Balance 225 Intake: IV 225 Sodium Chloride 0.9% 1, 225 000 ml @ 75 mls/hr IV . [id number] [facility] Rx#:[id number] Other: Voiding Method Toilet Toilet # Voids 3 # Bowel Movements 0 Weight 81.647 kg GENERAL DESCRIPTION: Middle-aged male lying in bed, no distress. No tachypnea or accessory muscle of respiration use. HEENT: Shows Pallor , no scleral icterus. Oral mucous membrane is dry. No pharyngeal erythema or thrush NECK: Trachea central, no thyromegaly. LUNGS: Unlabored breathing. Clear to auscultation anteriorly. No wheeze or crackle. HEART: S1, S2, regular rate and rhythm. No loud murmur ABDOMEN: Soft, mild right upper quadrant tenderness , no guarding or rigidity, no organomegaly EXTREMITIES: No edema of feet. SKIN: No rash, no masses palpable. NEUROLOGICAL: The patient is awake, alert, oriented x3, mood and affect normal. Results CBC & Chem 7: 01/19/22 12:02 01/20/22 05:50 Labs: Abnormal Lab Results - Last 24 Hours (Table) 0301/19/22 01/19/22 Range/Units 12:02 12:02 12:02 Monocytes # (Manual) 1.07 H (0-1.0) k/uL Sodium 132 L (137-145) mmol/L Chloride 97 L (98-107) mmol/L Glucose 100 H (74-99) mg/dL Calcium (8.7-10.3) mg/dL Total Bilirubin 1.4 H (0.2-1.3) mg/dL AST 199 H (17-59) U/L ALT 277 H (4-49) U/L Alkaline Phosphatase 618 H (38-126) U/L Albumin (3.8-4.9) g/dL Albumin/Globulin Ratio (1.60-3.17) g/dL Urine Protein Trace H (Negative) Urine Ketones 2+ H (Negative) Urine Blood Trace H (Negative) Urine Mucus Occasional H (None) /hpf 01/20/22 Range/Units 05:50 Monocytes # (Manual) (0-1.0) k/uL Sodium (137-145) mmol/L Chloride (98-107) mmol/L Glucose (74-99) mg/dL Calcium 8.3 L (8.7-10.3) mg/dL Total Bilirubin (0.2-1.3) mg/dL AST 161 H (17-59) U/L ALT 254 H (4-49) U/L Alkaline Phosphatase 604 H (38-126) U/L Albumin 3.7 L (3.8-4.9) g/dL Albumin/Globulin Ratio 1.42 L (1.60-3.17) g/dL Urine Protein (Negative) Urine Ketones (Negative) Urine Blood (Negative) Urine Mucus (None) /hpf Assessment and Plan (1) Intra-abdominal abscess Current Visit: Yes Status: Acute Code(s): K65.1 - PERITONEAL ABSCESS SNOMED Code(s): 15981410 Plan: 1patient presented to hospital with a fever headache and some epigastric discomfort in this patient who did have a laparoscopic cholecystectomy completed about a month ago now with evidence of a small collection in the cholecystectomy bed likely representing intra-abdominal abscess and will need to cover for the enteric gram-negative with a likely pathogen, abscess has been considered to be too small to be drained CT-guided by interventional radiology. 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 We will follow on clinical condition and cultures to further adjust medication if needed Thank you for this consultation will follow this patient along with you Time with Patient: Greater than 30
[2022-01-21] MEDS: AMPICILLIN-SULBACTAM 3 GM in SODIUM CHLORIDE 0.9% 100 ML IVPB SCH ×4 (05:33→23:12)
[2022-01-21] MEDS: ACETAMINOPHEN TAB 325 MG TAB PO PRN ×3 (05:34→23:16)
[2022-01-21] MEDS: SODIUM CHLORIDE 0.9% 1,000 ML IV SCH (05:35)
[2022-01-21] MEDS: HEPARIN SODIUM,PORCINE/PF 5,000 UNIT/0.5 ML SYRINGE SQ SCH ×3 (07:59→23:12)
[2022-01-21] MEDS: PANTOPRAZOLE 40 MG TABLET PO SCH (07:59)
[2022-01-21] MEDS: LORATADINE 10 MG TAB PO SCH (07:59)
[2022-01-21 08:59] LABS: HCT 41.2 % (39.6-50.0); HGB 13.3 g/dL (13.0-17.0); MCH 27.7 pg (27.0-32.0); MCHC 32.3 g/dL (32.0-37.0); MCV 85.8 fL (80.0-97.0); Mean Platelet Volume 9.9 fL (9.5-12.2); NRBC Per 100 WBC 0 /100 WBCS (0.0-0.0); Platelet Count 234 X 10*3/uL (140-440); RDW 13.2 % (11.5-14.5); WBC 9.33 X 10*3/uL (4.50-10.00)
[2022-01-21 09:03] LABS: African American GFR (CKD) 131.2 (60.0-200.0); Albumin 3.4 g/dL (3.8-4.9); Albumin/Globulin Ratio 1.36 (1.60-3.17); Anion Gap 12.9 mmol/L (10.00-18.00); BUN/Creat Ratio 11.5 Ratio (12.00-20.00); Blood Urea Nitrogen 6.9 mg/dL (9.0-27.0); Calcium 8.1 mg/dL (8.7-10.3); Carbon Dioxide 22.1 mmol/L (20.0-27.5); Globulin 2.5 g/dL (1.6-3.3); Non-African American GFR(CKD) 113.2 (60.0-200.0); Potassium 3.8 mmol/L (3.5-5.5); Total Protein 5.9 g/dL (6.2-8.2)
--- NOTE | 2022-01-21 11:32 | P.PN ---
Subjective Principal diagnosis: Fever and epigastric pain, history of cholecystectomy for choledocholithiasis and acute cholecystitis with fluid collection at the liver fossa Patient seen and examined today. On the whole feeling slightly better than on admission. His persistent headache improved transiently overnight and is now moderately bad today. Still has complaints of mild epigastric discomfort, poorly characterized, slightly improved compared to yesterday. Has been tolerating a soft bland diet, voiding without issue. No complaints of nausea or emesis today. He is remained afebrile overnight and hemodynamically stable. Laboratory studies today show a normal white blood cell count 9.3, normal serum electrolytes and his liver function studies are continuing to slowly trend down to AST and a LT of 132 and 215, alkaline phosphatase of 595 and total bilirubin of 1.0. Amylase and lipase yesterday were normal range. Objective - Vital Signs Vital signs: Vital Signs Temp 98.8 F 01/21/22 07:32 Pulse 79 01/21/22 07:32 Resp 18 01/21/22 07:32 BP 136/74 01/21/22 07:32 Pulse Ox 95 01/21/22 07:32 Intake & Output 01/20/22 01/21/22 01/21/22 18:59 06:59 18:59 Output Total 1 Balance -1 Output: Stool 1 Other: Voiding Method Toilet Toilet # Voids 6 - Constitutional General appearance: Present: average body habitus, no acute distress - EENT Eyes: Present: EOMI, PERRLA ENT: Present: hearing grossly normal - Respiratory Respiratory: bilateral: CTA - Cardiovascular Rhythm: regular - Gastrointestinal Gastrointestinal Comment(s): Abdomen is soft with mild epigastric tenderness to palpation, no guarding rebound or distention. No focal right upper quadrant tenderness to palpation. No clinical signs of jaundice. No evidence of peritonitis. - Neurologic Neurologic: Present: CNII-XII intact - Musculoskeletal Musculoskeletal: Present: strength equal bilaterally - Psychiatric Psychiatric: Present: A&O x's 3, appropriate affect, intact judgment & insight - Labs CBC & Chem 7: 01/21/22 06:01 01/21/22 06:01 Labs: Abnormal Lab Results - Last 24 Hours (Table) 01/21/22 Range/Units 06:01 BUN 6.9 L (9.0-27.0) mg/dL BUN/Creatinine Ratio 11.50 L (12.00-20.00) Ratio Calcium 8.1 L (8.7-10.3) mg/dL AST 132 H (14-35) U/L ALT 215 H (10-49) U/L Alkaline Phosphatase 595 H (41-126) U/L Total Protein 5.9 L (6.2-8.2) g/dL Albumin 3.4 L (3.8-4.9) g/dL Albumin/Globulin Ratio 1.36 L (1.60-3.17) g/dL Microbiology - Last 24 Hours (Table) 01/19/22 12:02 Blood Culture - Preliminary Blood No Growth after 24 hours 01/19/22 12:02 Blood Culture - Preliminary Blood No Growth after 24 hours Assessment and Plan Assessment: 56-year-old gentleman presenting with indistinct epigastric pain and fever status post cholecystectomy approximately 1 month ago in the inpatient setting for obstructing choledocholithiasis. Fluid collection at the gallbladder fossa without regional inflammatory changes seen on CT, small focus of air. HIDA scan shows no obstruction or bile leak presently. Abdominal exam is essentially benign. No hard signs for sepsis. My underlying suspicion at this point given the pattern on his liver function studies is that he may have had a retained stone that caused a transient obstruction and has subsequently passed. Fluid collection at the liver fossa may or may not be of significance. Regardless, at the time being it would appear to be too small to pursue with image guided drainage. Persistent headache of unclear etiology. Plan: Continue with empiric Unasyn, soft diet as tolerated. Saline lock IV. We'll continue to follow serial labs, I suspect his transaminases to continue to show gradual improvement. Medical and infectious disease consultation notes reviewed and appreciated. MRI of the brain should be fine at this point is the patient's a month out from surgery and HIDA scan showed no evidence of bile leak. An MRCP could be of utility to investigate for a lingering choledocholithiasis given the patient's persistent, moderately elevated liver function studies. Dr. Haney will be resuming inpatient rounds tomorrow, will defer to him in this respect. Alternatively would consider a follow-up right upper quadrant ultrasound after 5 days of antibiotics to assess for interval changes in this fluid collection that could make it more amenable to aspiration or drainage. Patient's presenting chest x-ray and CT he had in the emergency department showed no findings of significance, urinalysis was negative for UTI. Coronavirus and influenza screens were negative. Time with Patient: Greater than 30
[2022-01-21 12:01] LABS: Basophils # (A) 0.13 X 10*3/uL (0.00-0.10); Basophils % (A) 1.4 %; Eosinophils # (A) 0.11 X 10*3/uL (0.04-0.35); Eosinophils % (A) 1.2 %; Lymphocytes # (A) 2.94 X 10*3/uL (0.90-5.00); Lymphocytes % (A) 31.5 %; Monocytes # (A) 0.73 X 10*3/uL (0.20-1.00); Monocytes % (A) 7.8 %; Neutrophils # (A) 5.23 X 10*3/uL (1.80-7.70); Neutrophils % (A) 56.1 %; RBC Morphology NORMAL
[2022-01-21] MEDS: amLODIPine 10 MG TAB PO SCH (19:57)
[2022-01-22] MEDS: AMPICILLIN-SULBACTAM 3 GM in SODIUM CHLORIDE 0.9% 100 ML IVPB SCH ×2 (05:23→11:57)
[2022-01-22] MEDS: ACETAMINOPHEN TAB 325 MG TAB PO PRN (05:28)
[2022-01-22] MEDS: LORATADINE 10 MG TAB PO SCH (08:17)
[2022-01-22] MEDS: HEPARIN SODIUM,PORCINE/PF 5,000 UNIT/0.5 ML SYRINGE SQ SCH ×3 (08:17→23:17)
[2022-01-22] MEDS: PANTOPRAZOLE 40 MG TABLET PO SCH (08:17)
[2022-01-22 08:41] LABS: HCT 42.6 % (39.6-50.0); HGB 13.8 g/dL (13.0-17.0); MCH 27.8 pg (27.0-32.0); MCHC 32.4 g/dL (32.0-37.0); MCV 85.9 fL (80.0-97.0); Mean Platelet Volume 9.9 fL (9.5-12.2); NRBC Per 100 WBC 0 /100 WBCS (0.0-0.0); Platelet Count 234 X 10*3/uL (140-440); RBC 4.96 X 10*6/uL (4.40-5.60); RDW 13.4 % (11.5-14.5); WBC 11.13 X 10*3/uL (4.50-10.00)
[2022-01-22 09:05] LABS: African American GFR (CKD) 130.8 (60.0-200.0); Albumin 3.5 g/dL (3.8-4.9); Albumin/Globulin Ratio 1.21 (1.60-3.17); Anion Gap 11.1 mmol/L (10.00-18.00); BUN/Creat Ratio 9.5 Ratio (12.00-20.00); Blood Urea Nitrogen 5.7 mg/dL (9.0-27.0); Calcium 8.5 mg/dL (8.7-10.3); Carbon Dioxide 23.5 mmol/L (20.0-27.5); Globulin 2.9 g/dL (1.6-3.3); Non-African American GFR(CKD) 112.9 (60.0-200.0); Potassium 3.7 mmol/L (3.5-5.5); Total Protein 6.3 g/dL (6.2-8.2)
[2022-01-22] MEDS: KETOROLAC 15 MG/ML 1 ML VIAL IVP SCH ×4 (09:39→23:16)
[2022-01-22 10:07] LABS: Basophils # (A) 0.19 X 10*3/uL (0.00-0.10); Basophils % (A) 1.7 %; Eosinophils # (A) 0.15 X 10*3/uL (0.04-0.35); Eosinophils % (A) 1.3 %; Immature Grans, Automated 1.2 %; Lymphocytes # (A) 4.91 X 10*3/uL (0.90-5.00); Lymphocytes % (A) 44.1 %; Monocytes # (A) 0.87 X 10*3/uL (0.20-1.00); Monocytes % (A) 7.8 %; Neutrophils # (A) 4.88 X 10*3/uL (1.80-7.70); Neutrophils % (A) 43.9 %
[2022-01-22] MEDS ORDERED: HYDROmorphone 0.5 MG/0.5 ML SYRINGE IVP PRN (10:49)
--- NOTE | 2022-01-22 12:25 | P.PN ---
Subjective Progress Note Date: 01/22/22 History of present illness 56-year-old male one of Dr. Rey patient was seen in our office for the last few years he was hospitalized on 12/18/2021 for severe abdominal pain was diagnosed with acute cholecystitis and cholelithiasis ended up seen Dr. Haney and had laparoscopy cystectomy done successfully on 12/19 2021. Patient ended up going home on December 21 and done well after a week or so developed to have slight increase headache with vague symptom with low-grade temperature on and off symptoms become much worse. Apparently patient had a virtual visits nor office over 10 days ago for worsening symptom with low-grade temperature fever or chills along with sig nificant headache and sinus pressure in the frontal sinus area. Patient coded testing came back negative patient kept having his symptoms much worse. Patient ended up in the emergency department at [facility] on 01/19/2022 with above symptoms at the time was seen was running temperature of 102 with testing for his high fever and chills CAT scan of the abdomen shows questionable of fluid collection on the area of his gallbladder can be consistent with abscess. Patient was started on IV antibiotics and admitted to surgery service. Apparently HIDA scan came back negative today patient continues to have significant a headache on and off with slight pressure in the frontal head area. CT of the brain was performed on admission on 01/19/2022 came back negative. Patient temperature continue to be marginal at this point but patient does not require any intervention and agreed by general surgery to keep him on IV antibiotic and consult infectious disease for better choice. The patient kept having significant headache might require to have an MRI of the brain to exclude any possibility of smaller aneurysm also his CAT scan this point is not showing any sign of sinusitis patient will be on antibiotic if we add nasal spray and decongestant medication to treat sinusitis will be valuable option. ROS Constitutional: Denies chills, Denies fever, Denies lethargy, Denies malaise, Denies poor appetite, Denies weakness, Denies weight loss Eyes: denies decreased vision, denies diplopia, denies discharge, denies pain endorses jaundice Ears: deny: decreased hearing Ears, nose, mouth and throat: Denies dental pain, Denies headache, Denies nasal discharge, Denies nose pain Cardiovascular: Denies chest pain, Denies decreased exercise tolerance, Denies edema, Denies high blood pressure, Denies irregular heart beat, Denies palpitations, Denies paroxysmal nocturnal dyspnea, Denies rapid heart beat, Denies shortness of breath Respiratory: Denies congestion, Denies cough, Denies cough with sputum, Denies dyspnea, Denies home oxygen, Denies wheezing Gastrointestinal: endorses abdominal pain, Denies change in bowel habits, Denies coffee ground emesis, Denies early satiety, Denies excessive gas, Denies heartburn, Denies hematemesis, Denies hematochezia, Denies loss of appetite, Denies nausea, Denies vomiting Genitourinary: Denies dysuria, Denies flank pain, Denies kidney stones, Denies menorrhagia, Denies urgency, Denies urinary frequency Musculoskeletal: Denies gait dysfunction, Denies limitation of motion, Denies morning stiffness, Denies muscle cramps Integumentary: Denies rash, Denies wounds, Denies brittle nails, Denies change in hair/nails, Denies darkening of skin Neurological: Denies balance difficulties, Denies change in speech, Denies d ouble vision, Denies gait dysfunction, Denies loss of vision, Denies motor disturbance, Denies numbness, Denies paralysis, Denies paresthesias, Denies seizures Psychiatric: Denies anxiety, Denies depression Endocrine: Denies excessive sweating, Denies excessive thirst, Denies high blood sugars, Denies palpitations Hematologic/Lymphatic: Denies easy bruising, Denies lymphadenopathy PHYSICAL EXAMINATION Gen: This is a well-developed does not look in any respiratory distress. HEENT: Head is atraumatic, normocephalic. Pupils equal, round. Sclerae is anicteric. No neck rigidity at this point patient have mild sinus pressure in the frontal sinus area. NECK: Supple. No JVD. No lymphadenopathy. No thyromegaly. LUNGS: Clear to auscultation. No wheezes or rhonchi. No intercostal retractions. HEART: Regular rate and rhythm. No murmur. ABDOMEN: Soft. Bowel sounds are present. No masses. No tenderness. Incision from surgery had healed very well no sinus tenderness in the right upper quadrant or midepigastric area. EXTREMITIES: No pedal edema. No calf tenderness. NEUROLOGICAL: Patient is awake, alert and oriented x3. Cranial nerves 2 through 12 are grossly intact. ASSESSMENT AND PLAN 1. Abdominal pain and discomfort: 3 weeks after gallbladder surgery with fluid collection on the surgical site can be consistent with abscess, no clear abscess was found on either CT or HIDA scan at this point. She'll remain on IV antibiotic discussed with general surgery patient be going for an MRCP. With the slight possibility of this as potential common duct stone patient might develop ascending cholangitis which can explain the fever is going through this point. 2 severe headache: Still not clear etiology except the fever and chills patient is going through, CAT scan did not show any abnormality at this point. I get the okay from general surgery to do MRI of the brain at this point to see if there is any abnormality might consistent with aneurysm or anything can explain the headache patient is going through. Also patient will be seen neurology. There is no sign of meningitis or encephalitis at this point no central nervous system can explain the finding. We'll continue to treat the headache same time keep in mind symptom can be all related to a general infection ongoing. 3 possibly ascending cholangitis: Specially shortly after gallbladder surgery with the fever or chills and fluid collection, patient might have common duct stone will be going for an MRCP continue wide spectrum antibiotic to treat ascending cholangitis at this point. 4 hypertension: Continue Norvasc 5 mg a day with try to titrate medication to ke systolic blood pressure below 1:30. 5 hyperlipidemia: Has been on atorvastatin. 6 gastritis and GERD: Patient will continue PPI. 7 DVT prophylaxis: Patient is on heparin subcutaneous. CODE STATUS: Full code. Plan: Full discussion with the and the patient today about expectation specially with the fever or chills not feeling well agree to go for an MRI of the brain, see neurology, MRCP need to be prepped psych and be done until tomorrow but talk with general surgery talk with infectious disease about making a change with antibiotics for broad-spectrum coverage to see if we can help the fever and chills may be doing another set of culture will be a good idea at this point. Objective - Vital Signs Vital signs: Vital Signs Temp 98.5 F 01/22/22 07:50 Pulse 77 01/22/22 07:50 Resp 22 01/22/22 07:50 BP 120/78 01/22/22 07:50 Pulse Ox 96 01/22/22 07:50 Intake & Output 01/21/22 01/22/22 01/22/22 18:59 06:59 18:59 Other: Voiding Method Toilet # Voids 5 2 # Bowel Movements 1 - Labs CBC & Chem 7: 01/22/22 04:18 01/22/22 04:18 Labs: Abnormal Lab Results - Last 24 Hours (Table) 01/22/22 01/22/22 Range/Units 04:18 04:18 WBC 11.13 H (4.50-10.00) X 10*3/uL Immature Gran # 0.13 H (0.00-0.04) X 10*3/uL Basophils # 0.19 H (0.00-0.10) X 10*3/uL BUN 5.7 L (9.0-27.0) mg/dL BUN/Creatinine Ratio 9.50 L (12.00-20.00) Ratio Calcium 8.5 L (8.7-10.3) mg/dL AST 118 H (14-35) U/L ALT 207 H (10-49) U/L Alkaline Phosphatase 616 H (41-126) U/L Albumin 3.5 L (3.8-4.9) g/dL Albumin/Globulin Ratio 1.21 L (1.60-3.17) g/dL Microbiology - Last 24 Hours (Table) 01/19/22 12:02 Blood Culture - Preliminary Blood No Growth after 48 hours 01/19/22 12:02 Blood Culture - Preliminary Blood No Growth after 48 hours
[2022-01-22] MEDS: BUTALB/APAP/CAFF 50-325-40MG TAB PO PRN ×2 (13:56→19:33)
--- NOTE | 2022-01-22 15:31 | P.PN ---
Progress Note - Text Progress Note Date: 01/22/22 Patient was in wheelchair headed to radiology department for MRI during rounds. I did speak to the patient's at length about his current clinical status. At this point, it is unclear what the source of headache and fever is. HIDA scan is negative for any bile leak. CT of the abdomen and pelvis did show a small fluid collection in the gallbladder fossa. It is unclear whether this is abscess or postoperative fluid collection. Patient is on antibiotics for coverage due to fever. It is possible, based on patient's elevated transaminases that a small common bile duct stone may be retained. This could be causing some of the patient's symptoms. The case was also discussed with fabiana cortes's admitting physician, Dr. Del Rosario. Due to continued headache, neurology has been consultation for evaluation. MRI of the brain is to be performed. I did also recommend MRCP for evaluation for any choledocholithiasis. Continue with antibiotics at this time. The patient's was understanding of this discussion and all questions were answered. She seems agreeable with the plan in place. We'll continue to provide further recommendations based on patient's clinical progress and study results.
[2022-01-22] MEDS: PIPERACILLIN-TAZOBACTAM 3.375 GM in SODIUM CHLORIDE 0.9% 100 ML IVPB SCH ×2 (16:04→23:17)
--- NOTE | 2022-01-22 16:23 | MR ---
EXAMINATION TYPE: MR brain wo/w con DATE OF EXAM: 01/22/2022 COMPARISON: CT brain 01/19/2022 HISTORY: severe Headache ?? Aneurysm. TECHNIQUE: Multiplanar, multisequence images of the brain and brainstem is performed without and with IV contras t, utilizing 7.5 mL intravenous Gadavist . FINDINGS: Diffusion weighted images demonstrate no evidence of a recent infarct or other diffusion ab normality. There is no extra-axial fluid collection or significant white matter signal abnormality. The ventricular system and cisternal spaces are normal in size and appearance. The brain volume is age appropriate. Midline structures demonstrate normal morphology. The craniocervical junction appears within normal limits. Post contrast images demonstrate no abnormal enhancement. The dural venous sinuses appear pa tent. The visualized sinuses are showing possible mucus retention cysts or polyps within the maxillar y sinuses, mucosal changes in the ethmoid air cells and the globes are intact. IMPRESSION: Unremarkable brain MRI. Mild sinus disease as described.
--- NOTE | 2022-01-22 17:28 | P.CNNES ---
History of Present Illness Consult date: 01/22/22 Requesting physician: Jarett Del Rosario Reason for Consult: Severe headache History of Present Illness: Patient is a 56-year-old male with no previous history of headaches, came to the hospital 3 days ago on 01/19/2022 for headache, and fever fever. At present patient states that he has been having continuous headache for last 12 days. It started on 01/11/2022 during middle of the day when he was visiting his in-laws, and he felt a bifrontal headache which he rated 6/10. He also noticed some fever and chills. The headache has never left since then. There was no nausea vomiting, light or noise sensitivity with it. It is a constant aching headache. The headache has been persistent since then. About one week into the headache, he has some phonophobia but denies any photophobia. The headache rates between 6-10/10. It goes up to 10/10 almost every day and last for an hour until he sleeps and wakes up again back to 6/10. He just wants to sleep. He has no appetite. His has noted that he has been feeling very hot, does not want to put covers although he does not have high temperature at that time. He has been having fewer off and on, sometimes up to 102. Patient denies any visual symptoms, any aura, postnasal drip, any runny nose, any rash, recent travel, or contacts with any sick person. He denies any history of headaches or migraines. No joint pains., No balance issues. He does use hearing aid, related to decreased hearing from work. Patient had undergone cholecystectomy on 12/20/2021. He has mild residual epigastric discomfort. Patient has been seen by infectious disease, and fever was felt to be related to abdominal abscess. He had a HIDA scan which is negative. Patient states that since admission to the hospital, the headache has not improved at all. It is not worse either. At present he rates it 6/10. Patient's blood test on arrival was normal CBC, sodium 132 potassium 4.2, normal renal functions. AST was elevated at 199, ALT to 77 with alkaline phosphatase 6 are 18. Amylase and lipase are normal. UA is negative. Coronal virus PCR negative. Influenza screen negative. Heterophile antibody negative. Patient's hepatic functions has slightly improved now 118/[address] head showed no acute intracranial abnormality or gross space-occupying lesion. I personally reviewed computed tomography scan of the head and agree with the findings. There is a small polyp noted in the left anterior medial region of the left maxillary sinus but otherwise all sinuses are clear. Patient had a CT of abdomen and pelvis, which revealed interval cholecystectomy. There is fluid in the cholecystectomy bed, which could be postoperative although abscess cannot be ruled out. Infectious disease has seen the patient, and is concerned about abscess. Patient is currently on Unasyn. He has hypertension for last 8 months, never smoked drinks alcohol very occasionally. He drinks 2 cups of coffee per day, but has not drank since he has been in the hospital. Does not drink excessive pops. He states his great grandmother had cerebral aneurysm at age 90. Review of Systems As mentioned in detail in HPI. All other 14 point review of systems reviewed and as mentioned in HPI. Past Medical History Past Medical History: Hypertension Additional Past Medical History / Comment(s): seasonal allergies History of Any Multi-Drug Resistant Organisms: None Reported Past Surgical History: Cholecystectomy, Heart Catheterization, Hernia Repair Past Anesthesia/Blood Transfusion Reactions: No Reported Reaction Past Psychological History: No Psychological Hx Reported Smoking Status: Never smoker Past Alcohol Use History: Occasional Past Drug Use History: None Reported - Past Family History Father Family Medical History: No Reported History Mother Family Medical History: No Reported History Medications and Allergies Home Medications Medication Instructions Recorded Confirmed Type Nitroglycerin Sl Tabs [Nitrostat] 0.4 mg SUBLINGUAL Q5M PRN 12/17/21 01/19/22 History amLODIPine [Norvasc] 10 mg PO HS tab 12/21/21 01/19/22 Rx Cetirizine HCl [Zyrtec] 10 mg PO DAILY 01/19/22 01/19/22 History Docusate [Colace] 100 mg PO DAILY PRN 01/19/22 01/19/22 History Multivitamins, Thera [Multivitamin 1 tab PO DAILY 01/19/22 01/19/22 History (formulary)] Allergies Allergy/AdvReac Type Severity Reaction Status Date / Time No Known Allergies Allergy Verified 01/19/22 13:01 Physical Examination - Vital Signs Vital Signs: Vital Signs Temp Pulse Resp BP Pulse Ox 01/22/22 07:50 98.5 F 77 22 120/78 96 01/22/22 02:00 98.6 F 76 17 137/80 94 L 01/21/22 22:00 99.9 F H 83 16 140/84 95 01/21/22 16:30 98.1 F 01/21/22 15:31 100.1 F H 01/21/22 14:00 97.8 F 78 17 104/65 100 Intake and Output 01/21/22 01/22/22 01/22/22 22:59 06:59 14:59 Other: Voiding Method Toilet # Voids 5 2 # Bowel Movements 1 Patient is a middle aged male, in no acute distress. Patient is alert awake oriented to time place and person. Speech and language functions are normal. No aphasia or dysarthria. Attention, concentration and fund of knowledge is adequate. On cranial nerve examination, pupils are equal, round and reacting to light, vi sual sifuentes are full on confrontation on double simultaneous stimulation. His extraocular muscles are intact with no nystagmus. Face is symmetric, tongue protrudes to the midline. Palatal elevation and sensation normal, hearing and shoulder shrug normal, facial sensation normal. Shoulder shrug normal. On muscle strength testing, there is no pronator drift and the strength is normal in arms and legs distally and proximally. Deep tendon reflexes are trace in the upper limbs, 1 in the lower limbs and plantars downgoing. No clonus. Sensory to touch is equal with no neglect. Cerebellar function showed no ataxia for [id number] testing. No dysdiadochokinesia. Tone and bulk of muscles normal. Gait deferred. He subjectively has no complaints with gait. On general examination, there is no carotid bruit or murmur, S1-S2 audible. Abdomen is soft nontender. Chest is clear. Peripheral pulses are present. No edema. Results - Laboratory Findings CBC and BMP: 01/22/22 04:18 01/22/22 04:18 Abnormal Lab Findings: Abnormal Labs 01/19/22 01/19/22 01/19/22 12:02 12:02 12:02 WBC Immature Gran # Monocytes # (Manual) 1.07 H Basophils # Sodium 132 L Chloride 97 L BUN BUN/Creatinine Ratio Glucose 100 H Calcium Total Bilirubin 1.4 H AST 199 H ALT 277 H Alkaline Phosphatase 618 H Total Protein Albumin Albumin/Globulin Ratio Urine Protein Trace H Urine Ketones 2+ H Urine Blood Trace H Urine Mucus Occasional H 01/20/22 01/21/22 01/21/22 05:50 06:01 06:01 WBC Immature Gran # 0.19 H Monocytes # (Manual) Basophils # 0.13 H Sodium Chloride BUN 6.9 L BUN/Creatinine Ratio 11.50 L Glucose Calcium 8.3 L 8.1 L Total Bilirubin AST 161 H 132 H ALT 254 H 215 H Alkaline Phosphatase 604 H 595 H Total Protein 5.9 L Albumin 3.7 L 3.4 L Albumin/Globulin Ratio 1.42 L 1.36 L Urine Protein Urine Ketones Urine Blood Urine Mucus 01/22/22 01/22/22 04:18 04:18 WBC 11.13 H Immature Gran # 0.13 H Monocytes # (Manual) Basophils # 0.19 H Sodium Chloride BUN 5.7 L BUN/Creatinine Ratio 9.50 L Glucose Calcium 8.5 L Total Bilirubin AST 118 H ALT 207 H Alkaline Phosphatase 616 H Total Protein Albumin 3.5 L Albumin/Globulin Ratio 1.21 L Urine Protein Urine Ketones Urine Blood Urine Mucus Assessment and Plan Assessment: * 56-year-old male presented with a 12 day history of constant bifrontal headache with intermittent fevers. No obvious source has been identified. Rule out viral meningitis. Patient denies any previous history of headaches. No significant sinus drainage or symptoms. * Status post cholecystectomy on 12/20/2021. Some concern about abdominal abscess, but doubt would be the cause of significant headaches like he is suf patti. Plan: * Patient's new onset bifrontal headache, that has been constant and persistent for last 12 days. It has neither improved nor worsened over time, staying at level 6/10. * MRI of the brain was performed today, which is essentially unremarkable. Very mild sinus disease noted, but probably not the cause of headache. * We will pursue with lumbar puncture. Anesthesia services consulted. Also recommend to check opening pressure with the lumbar puncture. * Patient will be started on Fioricet as needed for headaches. * Patient is currently on Zosyn for possible abdominal abscess. * We will follow patient clinically. Thank you for the consult. Time with Patient: Greater than 30
[2022-01-22] MEDS: amLODIPine 10 MG TAB PO SCH (19:33)
--- NOTE | 2022-01-22 23:48 | P.PN ---
Subjective Progress Note Date: 01/21/22 Principal diagnosis: Postcholecystectomy abdominal abscess Patient is a 56-year-old male who is status post cholecystectomy in December 2021 subsequently admitted to the hospital with fever patient was noticed to have evidence of small abscess in the right upper quadrant area which was too small to be drained. On today's evaluation that is 01/21/2022, the patient denies having any fever or any chills, the patient is feeling slightly better the patient headache has i mproved denies any pain to the right upper quadrant area no nausea no vomiting and no diarrhea Objective - Vital Signs Vital signs: Vital Signs Temp 98.8 F 01/21/22 07:32 Pulse 79 01/21/22 07:32 Resp 18 01/21/22 07:32 BP 136/74 01/21/22 07:32 Pulse Ox 95 01/21/22 07:32 Intake & Output 01/20/22 01/21/22 01/21/22 18:59 06:59 18:59 Output Total 1 Balance -1 Output: Stool 1 Other: Voiding Method Toilet Toilet # Voids 6 - Exam GENERAL DESCRIPTION: Middle-age male lying in bed in no distress RESPIRATORY SYSTEM: Unlabored breathing , decreased breath sounds at bases HEART: S1 S2 regular rate and rhythm , ABDOMEN: Soft , no tenderness EXTREMITIES: No edema feet - Labs CBC & Chem 7: 01/22/22 04:18 01/22/22 04:18 Labs: Abnormal Lab Results - Last 24 Hours (Table) 01/21/22 Range/Units 06:01 BUN 6.9 L (9.0-27.0) mg/dL BUN/Creatinine Ratio 11.50 L (12.00-20.00) Ratio Calcium 8.1 L (8.7-10.3) mg/dL AST 132 H (14-35) U/L ALT 215 H (10-49) U/L Alkaline Phosphatase 595 H (41-126) U/L Total Protein 5.9 L (6.2-8.2) g/dL Albumin 3.4 L (3.8-4.9) g/dL Albumin/Globulin Ratio 1.36 L (1.60-3.17) g/dL Microbiology - Last 24 Hours (Table) 01/19/22 12:02 Blood Culture - Preliminary Blood No Growth after 24 hours 01/19/22 12:02 Blood Culture - Preliminary Blood No Growth after 24 hours Assessment and Plan (1) Intra-abdominal abscess Current Visit: Yes Status: Acute Code(s): K65.1 - PERITONEAL ABSCESS SNOMED Code(s): 76327390 Plan: 1patient presented to hospital with a fever headache and some epigastric discomfort in this patient who did have a laparoscopic cholecystectomy completed about a month ago now with evidence of a small collection in the cholecystectomy bed likely representing intra-abdominal abscess and will need to cover for the enteric gram-negative with a likely pathogen, abscess has been considered to be too small to be drained CT-guided by interventional radiology. 2patient to continue the patient on Unasyn 3 g every 6 hours, in view of clinical improvement patient to get midline and plan is for Rocephin and Flagyl no discharge Time with Patient: Less than 30
--- NOTE | 2022-01-22 23:50 | P.PN ---
Subjective Progress Note Date: 01/22/22 Principal diagnosis: Postcholecystectomy abdominal abscess Patient is a 56-year-old male who is status post cholecystectomy in December 2021 subsequently admitted to the hospital with fever patient was noticed to have evidence of small abscess in the right upper quadrant area which was too small to be drained. On today's evaluation that is 01/22/2022, the patient did have a low-grade fever last night, patient mentioned that feeding as well today and has been complai alexandre of headache, patient denies having any nausea and vomiting no abdominal pain no chest pain shortness of breath or cough Objective - Vital Signs Vital signs: Vital Signs Temp 98.4 F 01/22/22 14:00 Pulse 77 01/22/22 14:00 Resp 14 01/22/22 14:00 BP 156/90 01/22/22 14:00 Pulse Ox 97 01/22/22 14:00 Intake & Output 01/21/22 01/22/22 01/22/22 18:59 06:59 18:59 Other: Voiding Method Toilet # Voids 5 2 1 # Bowel Movements 1 - Exam GENERAL DESCRIPTION: Middle-age male lying in bed in no distress RESPIRATORY SYSTEM: Unlabored breathing , decreased breath sounds at bases HEART: S1 S2 regular rate and rhythm , ABDOMEN: Soft , no tenderness EXTREMITIES: No edema feet - Labs CBC & Chem 7: 01/22/22 04:18 01/22/22 04:18 Labs: Abnormal Lab Results - Last 24 Hours (Table) 01/22/22 01/22/22 Range/Units 04:18 04:18 WBC 11.13 H (4.50-10.00) X 10*3/uL Immature Gran # 0.13 H (0.00-0.04) X 10*3/uL Basophils # 0.19 H (0.00-0.10) X 10*3/uL BUN 5.7 L (9.0-27.0) mg/dL BUN/Creatinine Ratio 9.50 L (12.00-20.00) Ratio Calcium 8.5 L (8.7-10.3) mg/dL AST 118 H (14-35) U/L ALT 207 H (10-49) U/L Alkaline Phosphatase 616 H (41-126) U/L Albumin 3.5 L (3.8-4.9) g/dL Albumin/Globulin Ratio 1.21 L (1.60-3.17) g/dL Microbiology - Last 24 Hours (Table) 01/19/22 12:02 Blood Culture - Preliminary Blood No Growth after 72 hours 01/19/22 12:02 Blood Culture - Preliminary Blood No Growth after 72 hours Assessment and Plan (1) Intra-abdominal abscess Current Visit: Yes Status: Acute Code(s): K65.1 - PERITONEAL ABSCESS SNOMED Code(s): 36595432 Plan: 1patient presented to hospital with a fever headache and some epigastric discomfort in this patient who did have a laparoscopic cholecystectomy completed about a month ago now with evidence of a small collection in the cholecystectomy bed likely representing intra-abdominal abscess and will need to cover for the enteric gram-negative with a likely pathogen, abscess has been considered to be too small to be drained CT-guided by interventional radiology. 2MRI of the brain has been ordered and will be followed, and MRSA patient for tomorrow to rule out CBD stone 3-in view of the low-grade fever slightly elevated white antibiotics will be broadened to Zosyn discussed with the admitting team Time with Patient: Less than 30
[2022-01-23] MEDS: KETOROLAC 15 MG/ML 1 ML VIAL IVP SCH ×4 (05:21→23:25)
[2022-01-23] MEDS: PIPERACILLIN-TAZOBACTAM 3.375 GM in SODIUM CHLORIDE 0.9% 100 ML IVPB SCH ×3 (07:32→23:25)
[2022-01-23] MEDS: BUTALB/APAP/CAFF 50-325-40MG TAB PO PRN ×2 (07:32→15:24)
[2022-01-23] MEDS: PANTOPRAZOLE 40 MG TABLET PO SCH (07:33)
[2022-01-23] MEDS: LORATADINE 10 MG TAB PO SCH (07:33)
[2022-01-23] MEDS: HEPARIN SODIUM,PORCINE/PF 5,000 UNIT/0.5 ML SYRINGE SQ SCH ×3 (07:34→23:25)
[2022-01-23 09:32] LABS: HCT 42.1 % (39.6-50.0); HGB 13.3 g/dL (13.0-17.0); MCH 27.4 pg (27.0-32.0); MCHC 31.6 g/dL (32.0-37.0); MCV 86.8 fL (80.0-97.0); Mean Platelet Volume 10.1 fL (9.5-12.2); NRBC Per 100 WBC 0 /100 WBCS (0.0-0.0); Platelet Count 243 X 10*3/uL (140-440); RBC 4.85 X 10*6/uL (4.40-5.60); RDW 13.8 % (11.5-14.5); WBC 10.67 X 10*3/uL (4.50-10.00)
[2022-01-23 10:08] LABS: African American GFR (CKD) 116.6 (60.0-200.0); Albumin 3.2 g/dL (3.8-4.9); Albumin/Globulin Ratio 1.14 (1.60-3.17); Anion Gap 10.8 mmol/L (10.00-18.00); BUN/Creat Ratio 10.13 Ratio (12.00-20.00); Blood Urea Nitrogen 8.1 mg/dL (9.0-27.0); Calcium 8.5 mg/dL (8.7-10.3); Carbon Dioxide 24.2 mmol/L (20.0-27.5); Globulin 2.8 g/dL (1.6-3.3); Non-African American GFR(CKD) 100.6 (60.0-200.0); Potassium 3.6 mmol/L (3.5-5.5); Total Bilirubin 1.3 mg/dL (0.30-1.20)
[2022-01-23 10:36] LABS: Basophils # (A) 0.26 X 10*3/uL (0.00-0.10); Basophils % (A) 2.4 %; Eosinophils # (A) 0.17 X 10*3/uL (0.04-0.35); Eosinophils % (A) 1.6 %; Lymphocytes # (A) 5.14 X 10*3/uL (0.90-5.00); Lymphocytes % (A) 48.2 %; Monocytes # (A) 0.58 X 10*3/uL (0.20-1.00); Monocytes % (A) 5.4 %; Neutrophils # (A) 4.41 X 10*3/uL (1.80-7.70); Neutrophils % (A) 41.4 %
[2022-01-23] MEDS ORDERED: LIDOCAINE 1% INJ 10MG/ML (20 ML MDV) SQ ONE (12:24)
[2022-01-23] MEDS ORDERED: LACTATED RINGERS 1,000 ML IV ONE (13:08)
--- NOTE | 2022-01-23 13:15 | P.PN ---
Subjective Progress Note Date: 01/23/22 History of present illness 56-year-old male one of Dr. Rey patient was seen in our office for the last few years he was hospitalized on 12/18/2021 for severe abdominal pain was diagnosed with acute cholecystitis and cholelithiasis ended up seen Dr. Bingham and had laparoscopy cystectomy done successfully on 12/19 2021. Patient ended up going home on December 21 and done well after a week or so developed to have slight increase headache with vague symptom with low-grade temperature on and off symptoms become much worse. Apparently patient had a virtual visits nor office over 10 days ago for worsening symptom with low-grade temperature fever or chills along with sig nificant headache and sinus pressure in the frontal sinus area. Patient coded testing came back negative patient kept having his symptoms much worse. Patient ended up in the emergency department at [facility] on 01/19/2022 with above symptoms at the time was seen was running temperature of 102 with testing for his high fever and chills CAT scan of the abdomen shows questionable of fluid collection on the area of his gallbladder can be consistent with abscess. Patient was started on IV antibiotics and admitted to surgery service. Apparently HIDA scan came back negative today patient continues to have significant a headache on and off with slight pressure in the frontal head area. CT of the brain was performed on admission on 01/19/2022 came back negative. Patient temperature continue to be marginal at this point but patient does not require any intervention and agreed by general surgery to keep him on IV antibiotic and consult infectious disease for better choice. The patient kept having significant headache might require to have an MRI of the brain to exclude any possibility of smaller aneurysm also his CAT scan this point is not showing any sign of sinusitis patient will be on antibiotic if we add nasal spray and decongestant medication to treat sinusitis will be valuable option. 01/23: Patient is doing much better today headache has improved significantly compared to yesterday and day before, patient was started on Aricept for headache, MRI of the brain was completely negative. Patient is going for MRCP today to find out any common duct stone, temperature is down compared to before even despite infectious disease she'll the possible need for CT-guided needle dr jean baptiste from the fluid collection from the bed of the gallbladder for better diagnosis of abscess or not the area was too small for interventional radiology to be able to do it. Pending on results of the MRCP we'll decide on further management if no stone found in the common duct patient might need to go for either CT of the abdomen with thin cut around the area where the gallbladder bed exist to see the collection of fluid and by then will address with intervention radiology whether they're agreeable to do CT-guided drain or not. The meanwhile continue current antibiotics. If MRCP shows stone in the common duct patient will need to go for an ERCP and decision Dr. Koroma is back service on Wednesday he will stabilize patient on the the plan to do this Wednesday otherwise patient might need to be transferred to one of the large hospital a candidate for either [facility] for ERCP. ROS Constitutional: Denies chills, Denies fever, Denies lethargy, Denies malaise, D enies poor appetite, Denies weakness, Denies weight loss Eyes: denies decreased vision, denies diplopia, denies discharge, denies pain endorses jaundice Ears: deny: decreased hearing Ears, nose, mouth and throat: Denies dental pain, Denies headache, Denies nasal discharge, Denies nose pain Cardiovascular: Denies chest pain, Denies decreased exercise tolerance, Denies edema, Denies high blood pressure, Denies irregular heart beat, Denies palpitations, Denies paroxysmal nocturnal dyspnea, Denies rapid heart beat, Denies shortness of breath Respiratory: Denies congestion, Denies cough, Denies cough with sputum, Denies dyspnea, Denies home oxygen, Denies wheezing Gastrointestinal: endorses abdominal pain, Denies change in bowel habits, Denies coffee ground emesis, Denies early satiety, Denies excessive gas, Denies heartburn, Denies hematemesis, Denies hematochezia, Denies loss of appetite, Denies nausea, Denies vomiting Genitourinary: Denies dysuria, Denies flank pain, Denies kidney stones, Denies menorrhagia, Denies urgency, Denies urinary frequency Musculoskeletal: Denies gait dysfunction, Denies limitation of motion, Denies morning stiffness, Denies muscle cramps Integumentary: Denies rash, Denies wounds, Denies brittle nails, Denies change in hair/nails, Denies darkening of skin Neurological: Denies balance difficulties, Denies change in speech, Denies double vision, Denies gait dysfunction, Denies loss of vision, Denies motor disturbance, Denies numbness, Denies paralysis, Denies paresthesias, Denies seizures Psychiatric: Denies anxiety, Denies depression Endocrine: Denies excessive sweating, Denies excessive thirst, Denies high blood sugars, Denies palpitations Hematologic/Lymphatic: Denies easy bruising, Denies lymphadenopathy PHYSICAL EXAMINATION Gen: This is a well-developed does not look in any respiratory distress. HEENT: Head is atraumatic, normocephalic. Pupils equal, round. Sclerae is anicteric. No neck rigidity at this point patient have mild sinus pressure in the frontal sinus area. NECK: Supple. No JVD. No lymphadenopathy. No thyromegaly. LUNGS: Clear to auscultation. No wheezes or rhonchi. No intercostal retractions . HEART: Regular rate and rhythm. No murmur. ABDOMEN: Soft. Bowel sounds are present. No masses. No tenderness. Incision from surgery had healed very well no sinus tenderness in the right upper geri drant or midepigastric area. EXTREMITIES: No pedal edema. No calf tenderness. NEUROLOGICAL: Patient is awake, alert and oriented x3. Cranial nerves 2 through 12 are grossly intact. ASSESSMENT AND PLAN 1. Abdominal pain and discomfort: 3 weeks after gallbladder surgery with fluid collection on the surgical site can be consistent with abscess, no clear abscess was found on either CT or HIDA scan at this point. She'll remain on IV antibiotic discussed with general surgery patient be going for an MRCP. With the slight possibility of this as potential common duct stone patient might develop ascending cholangitis which can explain the fever is going through this point. 2 severe headache: Much better compared to yesterday needed for, neurology believe this is probably migraine headache or tension headache patient has done very well on the Fioricet 3 possibly ascending cholangitis: Specially shortly after gallbladder surgery with the fever or chills and fluid collection, patient might have common duct stone will be going for an MRCP continue wide spectrum antibiotic to treat ascending cholangitis at this point. 4 hypertension: Continue Norvasc 5 mg a day with try to titrate medication to keep systolic blood pressure below 1:30. 5 hyperlipidemia: Has been on atorvastatin. 6 gastritis and GERD: Patient will continue PPI. 7 DVT prophylaxis: Patient is on heparin subcutaneous. CODE STATUS: Full code. Discussion with patient and Dr. bingham, decision is to go for an MRCP, continue current antibiotics depending on the result patient might need to have an ERCP today to stone or might need to go for another CAT scan of the abdomen to find out how much fluid collection raw and slight the gallbladder bed whether can be drained by interventional radiology was not. Objective - Vital Signs Vital signs: Vital Signs Temp 99.8 F H 01/23/22 07:35 Pulse 88 01/23/22 07:35 Resp 16 01/23/22 07:35 BP 129/75 01/23/22 07:35 Pulse Ox 94 L 01/23/22 07:35 Intake & Output 01/22/22 01/23/22 01/23/22 18:59 06:59 18:59 Other: Voiding Method Toilet # Voids 1 1 - Labs CBC & Chem 7: 01/23/22 04:16 01/23/22 04:16 Labs: Abnormal Lab Results - Last 24 Hours (Table) 01/23/22 01/23/22 Range/Units 04:16 04:16 WBC 10.67 H (4.50-10.00) X 10*3/uL MCHC 31.6 L (32.0-37.0) g/dL BUN 8.1 L (9.0-27.0) mg/dL BUN/Creatinine Ratio 10.13 L (12.00-20.00) Ratio Calcium 8.5 L (8.7-10.3) mg/dL Total Bilirubin 1.30 H (0.30-1.20) mg/dL AST 160 H (14-35) U/L ALT 218 H (10-49) U/L Alkaline Phosphatase 608 H (41-126) U/L Total Protein 6.0 L (6.2-8.2) g/dL Albumin 3.2 L (3.8-4.9) g/dL Albumin/Globulin Ratio 1.14 L (1.60-3.17) g/dL Microbiology - Last 24 Hours (Table) 01/19/22 12:02 Blood Culture - Preliminary Blood No Growth after 72 hours 01/19/22 12:02 Blood Culture - Preliminary Blood No Growth after 72 hours
--- NOTE | 2022-01-23 13:34 | P.PCN ---
Date of Procedure: 01/23/22 Procedure(s) Performed: Preoperative diagnosis: Meningitis Post operative diagnoses: Meningitis Procedure= lumbar puncture Anesthesia local infiltration with lidocaine 1% 2 mL. Condition: stable Complication: none. Description of the procedure procedure risk and benefits discussed with the patient and family, consent signed. Patient and the procedure area placed in lateral position ( left side down ), back prepped with chlorhexidine 3 times been local infiltration of the skin and subcutaneous tissue with lidocaine 1% 2 mL for skin and subcu interstitial frustrations at L4 5 levels then 22-gauge Quincke-type needle advanced slowly at L4- 5 interlaminar space there was positive cerebrospinal fluid which was clear, no heme, no paresthesia ,total of 8 ML of clear cerebrospinal fluid collected in 4 different tubes 2 mL in each, then the needle removed and a Band-Aid applied and patient tolerated the procedure well without any complications. opening pressure=12 cm water. closing prssure=10 cm water ( after removal of 8 ml of clear CSF )
--- NOTE | 2022-01-23 13:52 | IR ---
EXAMINATION TYPE: IR cvc insert >=5 years DATE OF EXAM: 01/23/2022 COMPARISON: NONE CLINICAL HISTORY: Infection Needs long-term intravenous access for antibiotics. PROCEDURE: Hand hygiene obtained with soap and water and alcohol-based hand rub. After informed consent, the skin overlying the left basilic vein was localized with ultrasound and no christiano to be compressible and patent. An ultrasound image was obtained and submitted on the patient's c kemp. The overlying skin was prepped and draped and Lidocaine was used for local anesthesia. A skin viki was made with a scalpel. Access was gained to the vein under ultrasound guidance with a 21 gau ge needle and a 0.018 inch wire was advanced. Access site was dilated with Peel-Away sheath and cath eter tailored to the appropriate length and advanced such that the distal tip is at the cavoatrial ju nction. Spot image was obtained verifying placement. Catheter was fixed to the skin and a sterile d ressing was placed following hemostasis. Catheter was aspirated and flushed with saline. Patient wa s discharged in stable condition without complication.Maximal barrier technique is utilized. Ultraso und image is documented on the chart. Ultrasound used with sterile technique. Fluoro time and fluoroscopic images submitted to document procedure: 0.2 minutes fluoroscopy time, 47 intraoperative C-arm images IMPRESSION: STATUS POST ULTRASOUND AND FLUOROSCOPIC GUIDED PICC LINE PLACEMENT, READY FOR USE. THIS PROCEDURE WAS PERFORMED BY THE UNDERSIGNED.
--- NOTE | 2022-01-23 15:38 | MR ---
MRCP HISTORY: Abnormal CT, postcholecystectomy, fever and headache Multiplanar multisequence imaging obtained through the abdomen, three-dimensional reconstructions per formed through the biliary system. Correlation to prior CT scan dated 01/19/2022, MRCP 12/19/2021 The fluid collection seen in the gallbladder fossa is again seen, there is T2 bright signal at this l evel showing a similar appearance, possibly related to postop seroma, T1 isointense, T2 hyperintense. No filling defect is evident within the biliary system to suggest choledocholithiasis. No signal saira p on out of phase imaging within the liver to suggest hepatic steatosis. No dilated intra or extrahep atic biliary ducts. Minimal pleural effusion noted, no pericardial effusion. No splenomegaly, some minimal fluid signal i s present adjacent to the spleen. Adrenal glands are unremarkable. Small T2 bright focus within the b wayne the pancreas is again seen and is indeterminate. IMPRESSION: Indeterminate fluid signal present within the gallbladder fossa status post cholecystecto my. Choledocholithiasis is not evident.
[2022-01-23 16:28] LABS: Glucose,CSF 53 mg/dL (40-70); Total Protein,CSF 56 mg/dL (12-60)
[2022-01-23 16:38] LABS: Appearance,CSF Clear; CSF Tube Number 4
[2022-01-23 16:39] LABS: Nucleated Cells, CSF 1 u/L (0-5); Red Blood Cell,CSF 1 u/L (0-10)
--- NOTE | 2022-01-23 16:59 | P.PN ---
Subjective Progress Note Date: 01/23/22 Patient seen and examined at bedside. Headache is improving. Abdominal pain is absent. No acute changes. Objective - Vital Signs Vital signs: Vital Signs Temp 98.5 F 01/23/22 15:00 Pulse 74 01/23/22 15:00 Resp 16 01/23/22 15:00 BP 142/82 01/23/22 15:00 Pulse Ox 99 01/23/22 15:00 Intake & Output 01/22/22 01/23/22 01/23/22 18:59 06:59 18:59 Intake Total 50 Balance 50 Intake: IV 50 Other: Voiding Method Toilet # Voids 1 1 - Constitutional General appearance: Present: cooperative, no acute distress - Gastrointestinal Gastrointestinal Comment(s): Soft, nontender, nondistended, no rebound, no guarding - Musculoskeletal Musculoskeletal: Present: generalized weakness - Psychiatric Psychiatric: Present: A&O x's 3 - Labs CBC & Chem 7: 01/23/22 04:16 01/23/22 04:16 Labs: Abnormal Lab Results - Last 24 Hours (Table) 01/23/22 01/23/22 Range/Units 04:16 04:16 WBC 10.67 H (4.50-10.00) X 10*3/uL MCHC 31.6 L (32.0-37.0) g/dL Immature Gran # 0.11 H (0.00-0.04) X 10*3/uL Lymphocytes # 5.14 H (0.90-5.00) X 10*3/uL Basophils # 0.26 H (0.00-0.10) X 10*3/uL BUN 8.1 L (9.0-27.0) mg/dL BUN/Creatinine Ratio 10.13 L (12.00-20.00) Ratio Calcium 8.5 L (8.7-10.3) mg/dL Total Bilirubin 1.30 H (0.30-1.20) mg/dL AST 160 H (14-35) U/L ALT 218 H (10-49) U/L Alkaline Phosphatase 608 H (41-126) U/L Total Protein 6.0 L (6.2-8.2) g/dL Albumin 3.2 L (3.8-4.9) g/dL Albumin/Globulin Ratio 1.14 L (1.60-3.17) g/dL Microbiology - Last 24 Hours (Table) 01/19/22 12:02 Blood Culture - Preliminary Blood No Growth after 96 hours 01/19/22 12:02 Blood Culture - Preliminary Blood No Growth after 96 hours Assessment and Plan Plan: MRCP was completed today with no evidence of choledocholithiasis. Fluid collection in the gallbladder fossa is present with possibility of seroma. Patient's headache is improving. Case was also discussed with admitting service. Likely plan for discharge in the next day or so with plan for outpatient antibiotics.
[2022-01-23] MEDS: amLODIPine 10 MG TAB PO SCH (20:27)
--- NOTE | 2022-01-23 22:49 | P.PN ---
Subjective Progress Note Date: 01/23/22 Principal diagnosis: Postcholecystectomy abdominal abscess Patient is a 56-year-old male who is status post cholecystectomy in December 2021 subsequently admitted to the hospital with fever patient was noticed to have evidence of small abscess in the right upper quadrant area which was too small to be drained. On today's evaluation that is 01/23/2022, the patient is afebrile today, patient is feeling better and is complaining of less headache today, patient denies h aving any nausea and vomiting no abdominal pain no chest pain shortness of breath or cough Objective - Vital Signs Vital signs: Vital Signs Temp 99.8 F H 01/23/22 07:35 Pulse 88 01/23/22 07:35 Resp 16 01/23/22 07:35 BP 129/75 01/23/22 07:35 Pulse Ox 94 L 01/23/22 07:35 Intake & Output 01/22/22 01/23/22 01/23/22 18:59 06:59 18:59 Other: Voiding Method Toilet # Voids 1 1 - Exam GENERAL DESCRIPTION: Middle-age male lying in bed in no distress RESPIRATORY SYSTEM: Unlabored breathing , decreased breath sounds at bases HEART: S1 S2 regular rate and rhythm , ABDOMEN: Soft , no tenderness EXTREMITIES: No edema feet - Labs CBC & Chem 7: 01/23/22 04:16 01/23/22 04:16 Labs: Abnormal Lab Results - Last 24 Hours (Table) 01/23/22 01/23/22 Range/Units 04:16 04:16 WBC 10.67 H (4.50-10.00) X 10*3/uL MCHC 31.6 L (32.0-37.0) g/dL Immature Gran # 0.11 H (0.00-0.04) X 10*3/uL Lymphocytes # 5.14 H (0.90-5.00) X 10*3/uL Basophils # 0.26 H (0.00-0.10) X 10*3/uL BUN 8.1 L (9.0-27.0) mg/dL BUN/Creatinine Ratio 10.13 L (12.00-20.00) Ratio Calcium 8.5 L (8.7-10.3) mg/dL Total Bilirubin 1.30 H (0.30-1.20) mg/dL AST 160 H (14-35) U/L ALT 218 H (10-49) U/L Alkaline Phosphatase 608 H (41-126) U/L Total Protein 6.0 L (6.2-8.2) g/dL Albumin 3.2 L (3.8-4.9) g/dL Albumin/Globulin Ratio 1.14 L (1.60-3.17) g/dL Microbiology - Last 24 Hours (Table) 01/19/22 12:02 Blood Culture - Preliminary Blood No Growth after 72 hours 01/19/22 12:02 Blood Culture - Preliminary Blood No Growth after 72 hours Assessment and Plan (1) Intra-abdominal abscess Current Visit: Yes Status: Acute Code(s): K65.1 - PERITONEAL ABSCESS SNOMED Code(s): 53286768 Plan: 1patient presented to hospital with a fever headache and some epigastric discomfort in this patient who did have a laparoscopic cholecystectomy completed about a month ago now with evidence of a small collection in the cholecystectomy bed likely representing intra-abdominal abscess and will need to cover for the enteric gram-negative with a likely pathogen, abscess has been considered to be too small to be drained CT-guided by interventional radiology. 2MRI of the brain was negative for any acute changes, MRCP is scheduled for this afternoon 3-patient to continue Zosyn while awaiting further workup to finalize Time with Patient: Less than 30
--- NOTE | 2022-01-23 23:06 | P.PN ---
Subjective Progress Note Date: 01/23/22 Patient was seen for a follow-up. Patient states he is doing much better. The headache is almost gone. Rates it 1 on a scale of 1-10. No new neurological concerns. Objective - Vital Signs Vital signs: Vital Signs Temp 98.5 F 01/23/22 15:00 Pulse 74 01/23/22 15:00 Resp 16 01/23/22 15:00 BP 142/82 01/23/22 15:00 Pulse Ox 99 01/23/22 15:00 Intake & Output 01/22/22 01/23/22 01/23/22 18:59 06:59 18:59 Intake Total 50 Balance 50 Intake: IV 50 Other: Voiding Method Toilet # Voids 1 1 - Exam Normal. - Labs CBC & Chem 7: 01/23/22 04:16 01/23/22 04:16 Labs: Abnormal Lab Results - Last 24 Hours (Table) 01/23/22 01/23/22 Range/Units 04:16 04:16 WBC 10.67 H (4.50-10.00) X 10*3/uL MCHC 31.6 L (32.0-37.0) g/dL Immature Gran # 0.11 H (0.00-0.04) X 10*3/uL Lymphocytes # 5.14 H (0.90-5.00) X 10*3/uL Basophils # 0.26 H (0.00-0.10) X 10*3/uL BUN 8.1 L (9.0-27.0) mg/dL BUN/Creatinine Ratio 10.13 L (12.00-20.00) Ratio Calcium 8.5 L (8.7-10.3) mg/dL Total Bilirubin 1.30 H (0.30-1.20) mg/dL AST 160 H (14-35) U/L ALT 218 H (10-49) U/L Alkaline Phosphatase 608 H (41-126) U/L Total Protein 6.0 L (6.2-8.2) g/dL Albumin 3.2 L (3.8-4.9) g/dL Albumin/Globulin Ratio 1.14 L (1.60-3.17) g/dL Microbiology - Last 24 Hours (Table) 01/19/22 12:02 Blood Culture - Preliminary Blood No Growth after 96 hours 01/19/22 12:02 Blood Culture - Preliminary Blood No Growth after 96 hours Assessment and Plan Assessment: * 56-year-old male presented with a 12 day history of constant bifrontal headache with intermittent fevers. No obvious source has been identified. Rule out viral meningitis. Patient denies any previous history of headaches. No significant sinus drainage or symptoms. * Status post cholecystectomy on 12/20/2021. Some concern about abdominal abscess, but doubt would be the cause of significant headaches like he is suffering. Plan: * Patient's headache has remarkably improved. Continue Fioricet as needed. * MRI of the brain was performed today, which is essentially unremarkable. Very mild sinus disease noted, but probably not the cause of headache. * Lumbar puncture was performed. CSF WBC 1, RBC 1, glucose 53, protein 56 all normal. No signs of infection. Opening pressure normal 12 cm. Closing pressure 10 cm. * All neurological workup is normal. Headache has almost resolved. Neurology will sign off. Please reconsult neurology if any concerns.
[2022-01-24] MEDS: KETOROLAC 15 MG/ML 1 ML VIAL IVP SCH ×2 (05:20→13:20)
[2022-01-24] MEDS: LORATADINE 10 MG TAB PO SCH (07:27)
[2022-01-24] MEDS: HEPARIN SODIUM,PORCINE/PF 5,000 UNIT/0.5 ML SYRINGE SQ SCH (07:27)
[2022-01-24] MEDS: BUTALB/APAP/CAFF 50-325-40MG TAB PO PRN (07:32)
[2022-01-24] MEDS: PIPERACILLIN-TAZOBACTAM 3.375 GM in SODIUM CHLORIDE 0.9% 100 ML IVPB SCH (07:33)
[2022-01-24] MEDS: PANTOPRAZOLE 40 MG TABLET PO SCH (07:33)
[2022-01-24 07:50] VITALS: BP 112/73; PULSE 75; RESP 18; TEMP 98.9
[2022-01-24 08:52] LABS: Albumin 3.2 g/dL (3.8-4.9); Albumin/Globulin Ratio 1.1 (1.60-3.17); Anion Gap 12.2 mmol/L (10.00-18.00); BUN/Creat Ratio 13.33 Ratio (12.00-20.00); C Reactive Protein 2.7 mg/dL (0.00-0.80); Calcium 8.2 mg/dL (8.7-10.3); Carbon Dioxide 22.8 mmol/L (20.0-27.5); Globulin 2.9 g/dL (1.6-3.3); Non-African American GFR(CKD) 95.8 (60.0-200.0); Potassium 3.8 mmol/L (3.5-5.5); Total Bilirubin 1.4 mg/dL (0.30-1.20); Total Protein 6.1 g/dL (6.2-8.2)
--- NOTE | 2022-01-24 10:06 | P.DS ---
Providers Date of admission: 01/19/22 13:50 Attending physician: Robson Donohue DO Consults: 01/20/22 10:26 Consult Physician Routine Consulting Provider: Phong Larry Consult Reason/Comments: Fever of unknown origin Do you want consulting provider notified?: Yes 01/20/22 10:46 Consult Physician Routine Consulting Provider: Jarett Del Rosario Consult Reason/Comments: medical management Do you want consulting provider notified?: Already Contacted 01/22/22 10:14 Consult Physician Routine Consulting Provider: Von Gonzalez Consult Reason/Comments: Severe Headache Do you want consulting provider notified?: Yes 01/22/22 13:45 Consult to Anesthesia Routine Consulting Provider: Anesthesia,Services Consult Reason/Comments: New onset CARNEY, fever, R/O meningitis, plz check opening pressure also Primary care physician: [facility] Course: 56-year-old male presented to the emergency department with complaints of fever and weakness. He is approximately 1 month out from laparoscopic cholecystectomy after having acute cholecystitis. He was noted to have elevated transaminases throughout his admission. Initially, concern for biliary leak after CT showed fluid in the gallbladder fossa. HIDA scan was negative for biliary leak. Patient also complained of headache and was evaluated by neurology and did have CT and MRI of the brain with no obvious abnormalities. Patient also did have a lumbar puncture with CSF sampling with no obvious signs of meningitis. On discharge, his headache is improved. Unknown etiology of the patient's initial fevers was worked up with infectious disease. MRCP was completed as well to evaluate for cholangitis or choledocholithiasis. There is no evidence of choledocholithiasis. Fluid in the gallbladder fossa appears to be a seroma. Case was discussed with infectious disease and we will plan for discharge of the patient with oral antibiotics. We will keep the PICC line in place in case the patient will require any outpatient IV antibiotics. Case was also discussed with patient's primary care physician that has been rounding on the patient and this plan is acceptable with patient following up with primary care physician within 48 hours as an outpatient. This was discussed with the patient and the patient's and they're agreeable with the plan. Patient Condition at Discharge: Fair Plan - Discharge Summary New Discharge Prescriptions: New Levofloxacin [Levaquin] 500 mg PO DAILY 1 Days #10 tab Amoxicillin/Potassium Clav [Augmentin 875-125 Tablet] 1 tab PO Q12HR 10 Days #20 tab Butalb/APAP/Caff 50-325-40Mg [Fioricet 50-325-40] 1 each PO Q4HR PRN #60 tab PRN Reason: Headache Propranolol HCl [Inderal LA] 120 mg PO DAILY #60 cap Pantoprazole [Protonix] 40 mg PO AC-BRKFST #30 tab Continue Multivitamins, Thera [Multivitamin (formulary)] 1 tab PO DAILY Docusate [Colace] 100 mg PO DAILY PRN PRN Reason: Constipation Nitroglycerin Sl Tabs [Nitrostat] 0.4 mg SUBLINGUAL Q5M PRN PRN Reason: Chest Pain Cetirizine HCl [Zyrtec] 10 mg PO DAILY Discontinued amLODIPine [Norvasc] 10 mg PO HS tab Discharge Medication List Nitroglycerin Sl Tabs [Nitrostat] 0.4 mg SUBLINGUAL Q5M PRN 12/17/21 [History] Cetirizine HCl [Zyrtec] 10 mg PO DAILY 01/19/22 [History] Docusate [Colace] 100 mg PO DAILY PRN 01/19/22 [History] Multivitamins, Thera [Multivitamin (formulary)] 1 tab PO DAILY 01/19/22 [History] Amoxicillin/Potassium Clav [Augmentin 875-125 Tablet] 1 tab PO Q12HR 10 Days #20 tab 01/24/22 [Rx] Butalb/APAP/Caff 50-325-40Mg [Fioricet 50-325-40] 1 each PO Q4HR PRN #60 tab 01/24/22 [Rx] Levofloxacin [Levaquin] 500 mg PO DAILY 1 Days #10 tab 01/24/22 [Rx] Pantoprazole [Protonix] 40 mg PO AC-BRKFST #30 tab 01/24/22 [Rx] Propranolol HCl [Inderal LA] 120 mg PO DAILY #60 cap 01/24/22 [Rx] Follow up Appointment(s)/Referral(s): Jarett Del Rosario MD [Medical Doctor] - 1 Week (On Wednesday at 5 PM) Osmani Haney DO [Doctor of Osteopathic Medicine] - 1 Week Activity/Diet/Wound Care/Special Instructions: Follow closely with primary care physician and surgeon Take oral antibiotics as prescribed and recommended Continue PICC line with plan for removal as an outpatient if patient continues to improve Discharge Disposition: HOME SELF-CARE
--- NOTE | 2022-01-24 10:31 | P.PN ---
Subjective Progress Note Date: 01/24/22 History of present illness 56-year-old male one of Dr. Rey patient was seen in our office for the last few years he was hospitalized on 12/18/2021 for severe abdominal pain was diagnosed with acute cholecystitis and cholelithiasis ended up seen Dr. Haney and had laparoscopy cystectomy done successfully on 12/19 2021. Patient ended up going home on December 21 and done well after a week or so developed to have slight increase headache with vague symptom with low-grade temperature on and off symptoms become much worse. Apparently patient had a virtual visits nor office over 10 days ago for worsening symptom with low-grade temperature fever or chills along with sig nificant headache and sinus pressure in the frontal sinus area. Patient coded testing came back negative patient kept having his symptoms much worse. Patient ended up in the emergency department at [facility] on 01/19/2022 with above symptoms at the time was seen was running temperature of 102 with testing for his high fever and chills CAT scan of the abdomen shows questionable of fluid collection on the area of his gallbladder can be consistent with abscess. Patient was started on IV antibiotics and admitted to surgery service. Apparently HIDA scan came back negative today patient continues to have significant a headache on and off with slight pressure in the frontal head area. CT of the brain was performed on admission on 01/19/2022 came back negative. Patient temperature continue to be marginal at this point but patient does not require any intervention and agreed by general surgery to keep him on IV antibiotic and consult infectious disease for better choice. The patient kept having significant headache might require to have an MRI of the brain to exclude any possibility of smaller aneurysm also his CAT scan this point is not showing any sign of sinusitis patient will be on antibiotic if we add nasal spray and decongestant medication to treat sinusitis will be valuable option. 01/23: Patient is doing much better today headache has improved significantly compared to yesterday and day before, patient was started on Aricept for headache, MRI of the brain was completely negative. Patient is going for MRCP today to find out any common duct stone, temperature is down compared to before even despite infectious disease she'll the possible need for CT-guided needle dr jean baptiste from the fluid collection from the bed of the gallbladder for better diagnosis of abscess or not the area was too small for interventional radiology to be able to do it. Pending on results of the MRCP we'll decide on further management if no stone found in the common duct patient might need to go for either CT of the abdomen with thin cut around the area where the gallbladder bed exist to see the collection of fluid and by then will address with intervention radiology whether they're agreeable to do CT-guided drain or not. The meanwhile continue current antibiotics. If MRCP shows stone in the common duct patient will need to go for an ERCP and decision Dr. Koroma is back service on Wednesday he will stabilize patient on the weekend the plan to do this Wednesday otherwise patient might need to be transferred to one of the large hospital a candidate for either [place] for ERCP. 01/24: Patient MRCP came back very normal the positive serum only around the site of the surgery on his gallbladder, LP was done with analysis of spinal fluid came back completely negative for meningitis. Patient still having slight headache only but he is not having any fever or chills and overall feeling bet ter than before. I review all the finding with him his and Dr. Haney the same time we agree at this point patient will be discharged home today with most likely oral antibiotic unless infectious disease feels the need to continue IV antibiotics, his amlodipine will be switched to Inderal, will continue patient on Fioricet to help his migraine, he'll be seen in the office sometimes Wednesday this week blood panel be done and follow-up with general surgery will be done as well sometime this week was see him back weeks later with lab and if he is not improving another CAT scan of the abdomen will be done in 2 weeks and follow the rest as an outpatient. ROS Constitutional: Denies chills, Denies fever, Denies lethargy, Denies malaise, Denies poor appetite, Denies weakness, Denies weight loss Eyes: denies decreased vision, denies diplopia, denies discharge, denies pain endorses jaundice Ears: deny: decreased hearing Ears, nose, mouth and throat: Denies dental pain, Denies headache, Denies nasal discharge, Denies nose pain Cardiovascular: Denies chest pain, Denies decreased exercise tolerance, Denies edema, Denies high blood pressure, Denies irregular heart beat, Denies palpitations, Denies paroxysmal nocturnal dyspnea, Denies rapid heart beat, Denies shortness of breath Respiratory: Denies congestion, Denies cough, Denies cough with sputum, Denies dyspnea, Denies home oxygen, Denies wheezing Gastrointestinal: endorses abdominal pain, Denies change in bowel habits, Denies coffee ground emesis, Denies early satiety, Denies excessive gas, Denies heartburn, Denies hematemesis, Denies hematochezia, Denies loss of appetite, Denies nausea, Denies vomiting Genitourinary: Denies dysuria, Denies flank pain, Denies kidney stones, Denies menorrhagia, Denies urgency, Denies urinary frequency Musculoskeletal: Denies gait dysfunction, Denies limitation of motion, Denies morning stiffness, Denies muscle cramps Integumentary: Denies rash, Denies wounds, Denies brittle nails, Denies change in hair/nails, Denies darkening of skin Neurological: Denies balance difficulties, Denies change in speech, Denies double vision, Denies gait dysfunction, Denies loss of vision, Denies motor disturbance, Denies numbness, Denies paralysis, Denies paresthesias, Denies seizures Psychiatric: Denies anxiety, Denies depression Endocrine: Denies excessive sweating, Denies excessive thirst, Denies high blood sugars, Denies palpitations Hematologic/Lymphatic: Denies easy bruising, Denies lymphadenopathy PHYSICAL EXAMINATION Gen: This is a well-developed does not look in any respiratory distress. HEENT: Head is atraumatic, normocephalic. Pupils equal, round. Sclerae is anicteric. No neck rigidity at this point patient have mild sinus pressure in the frontal sinus area. NECK: Supple. No JVD. No lymphadenopathy. No thyromegaly. LUNGS: Clear to auscultation. No wheezes or rhonchi. No intercostal retractions. HEART: Regular rate and rhythm. No murmur. ABDOMEN: Soft. Bowel sounds are present. No masses. No tenderness. Incision from surgery had healed very well no sinus tenderness in the right upper quadrant or midepigastric area. EXTREMITIES: No pedal edema. No calf tenderness. NEUROLOGICAL: Patient is awake, alert and oriented x3. Cranial nerves 2 through 12 are grossly intact. ASSESSMENT AND PLAN 1. Abdominal pain and discomfort: With his MRCP came back negative patient had fever and chills for several days probably the whole picture was ascending cholangitis from common duct stone by the time his MRCP was performed the stones was already passed, will continue patient on antibiotics either oral or IV antibiotic for total of 10 days and to follow the rest of it as an outpatient if decline more patient can have another CAT scan in 2 weeks. 2 severe headache: No meningitis on lumbar puncture with analysis of spinal fluid, patient will be continue on Fioricet and switch patient to Inderal LA 120 mg twice a day and again titrate medication as an outpatient. 3 possibly ascending cholangitis: Specially shortly after gallbladder surgery with the fever or chills and fluid collection, patient might have common duct stone will be going for an MRCP continue wide spectrum antibiotic to treat ascending cholangitis at this point. 4 hypertension: Was on Norvasc with switch patient to Inderal LA 120 mg twice a day. 5 hyperlipidemia: Has been on atorvastatin. 6 gastritis and GERD: Patient will continue PPI. CODE STATUS: Full code. Patient is and general surgery all agree will continue oral or IV antibiotic for the next 10 days patient be seen in the office sometime this Wednesday. Objective - Vital Signs Vital signs: Vital Signs Temp 98.9 F 01/24/22 07:49 Pulse 75 01/24/22 07:49 Resp 18 01/24/22 07:49 BP 112/73 01/24/22 07:49 Pulse Ox 94 L 01/24/22 07:49 Intake & Output 01/23/22 01/24/22 01/24/22 18:59 06:59 18:59 Intake Total 50 Balance 50 Intake: IV 50 Other: Voiding Method Toilet # Voids 1 2 - Labs CBC & Chem 7: 01/23/22 04:16 01/24/22 04:51 Labs: Abnormal Lab Results - Last 24 Hours (Table) 01/23/22 01/24/22 Range/Units 04:16 04:51 Immature Gran # 0.11 H (0.00-0.04) X 10*3/uL Lymphocytes # 5.14 H (0.90-5.00) X 10*3/uL Basophils # 0.26 H (0.00-0.10) X 10*3/uL Glucose 113 H (70-110) mg/dL Calcium 8.2 L (8.7-10.3) mg/dL Total Bilirubin 1.40 H (0.30-1.20) mg/dL AST 235 H (14-35) U/L ALT 290 H (10-49) U/L Alkaline Phosphatase 723 H (41-126) U/L C-Reactive Protein 2.70 H (0.00-0.80) mg/dL Total Protein 6.1 L (6.2-8.2) g/dL Albumin 3.2 L (3.8-4.9) g/dL Albumin/Globulin Ratio 1.10 L (1.60-3.17) g/dL Microbiology - Last 24 Hours (Table) 01/23/22 13:27 CSF Gram Stain - Preliminary Cerebral Spinal Fluid CSF Culture - Preliminary 01/19/22 12:02 Blood Culture - Preliminary Blood No Growth after 96 hours 01/19/22 12:02 Blood Culture - Preliminary Blood No Growth after 96 hours
[2022-01-24 11:00] LABS: Basophils # (A) 0.07 X 10*3/uL (0.00-0.10); Basophils % (A) 0.5 %; Eosinophils # (A) 0.06 X 10*3/uL (0.04-0.35); Eosinophils % (A) 0.4 %; HCT 41.2 % (39.6-50.0); HGB 13.3 g/dL (13.0-17.0); Immature Grans, Automated 0.9 %; Lymphocytes # (A) 6.61 X 10*3/uL (0.90-5.00); Lymphocytes % (A) 46.2 %; MCH 27.9 pg (27.0-32.0); MCHC 32.3 g/dL (32.0-37.0); MCV 86.6 fL (80.0-97.0); Mean Platelet Volume 10.2 fL (9.5-12.2); Monocytes # (A) 2.59 X 10*3/uL (0.20-1.00); Monocytes % (A) 18.1 %; NRBC Per 100 WBC 0 /100 WBCS (0.0-0.0); Neutrophils # (A) 4.85 X 10*3/uL (1.80-7.70); Neutrophils % (A) 33.9 %; Platelet Count 246 X 10*3/uL (140-440); RBC 4.76 X 10*6/uL (4.40-5.60); RDW 13.8 % (11.5-14.5); WBC 14.31 X 10*3/uL (4.50-10.00)
[2022-01-24 11:01] LABS: RBC Morphology NORMAL
== END 2022-01-24 15:07 | disposition home or self-care (01) | DRG 919 ==
LOC: EC 10:36 → 4SSUR 13:50
PROVIDERS: ADMIT Surgery; ATTEND Surgery
PROC: 02HV33Z Insertion of Infusion Device into Superior Vena Cava, Percutaneous Approach (ICD-10-PCS; 2022-01-23)
PROC: 009U3ZX Drainage of Spinal Canal, Percutaneous Approach, Diagnostic (ICD-10-PCS; principal; 2022-01-23 08:26)
DX: K91.872 Postprocedural seroma of a digestive system organ or structure following a digestive system procedure (principal); K65.1 Peritoneal abscess; K80.31 Calculus of bile duct with cholangitis, unspecified, with obstruction; Y83.8 Other surgical procedures as the cause of abnormal reaction of the patient, or of later complication, without mention of misadventure at the time of the procedure; G43.909 Migraine, unspecified, not intractable, without status migrainosus; G44.209 Tension-type headache, unspecified, not intractable; H91.90 Unspecified hearing loss, unspecified ear; Z97.4 Presence of external hearing-aid; I10 Essential (primary) hypertension; K21.9 Gastro-esophageal reflux disease without esophagitis; K29.70 Gastritis, unspecified, without bleeding; E78.5 Hyperlipidemia, unspecified; Z79.899 Other long term (current) drug therapy; Z82.49 Family history of ischemic heart disease and other diseases of the circulatory system; Z90.49 Acquired absence of other specified parts of digestive tract; Z98.890 Other specified postprocedural states; Z20.822 Contact with and (suspected) exposure to COVID-19
CPT/HCPCS: 36415; 36573; 62270; 70450; 70553; 71046; 74177; 74181; 78226; 80053; 81001; 82150; 82945; 83605; 83690; 84145; 84157; 85025; 85610; 86140; 86308; 87040; 87070; 87205; 87252; 87496; 87498; 87502; 87529; 87635; 87798; 87801; 89050; 93005; 96365; 96375; 99285

== ENCOUNTER → 2022-02-03 | Outpatient (CLI) | payer BC ==
[2022-02-03 19:58] LABS: African American GFR (CKD) 113.3 (60.0-200.0); Albumin 3.5 g/dL (3.8-4.9); Albumin/Globulin Ratio 1.09 (1.60-3.17); Anion Gap 9.7 mmol/L (10.00-18.00); BUN/Creat Ratio 11.23 Ratio (12.00-20.00); Blood Urea Nitrogen 9.6 mg/dL (9.0-27.0); C Reactive Protein 1.7 mg/dL (0.00-0.80); Calcium 9.1 mg/dL (8.7-10.3); Carbon Dioxide 28.7 mmol/L (20.0-27.5); Globulin 3.3 g/dL (1.6-3.3); Non-African American GFR(CKD) 97.8 (60.0-200.0); Potassium 5.1 mmol/L (3.5-5.5); Total Bilirubin 0.6 mg/dL (0.30-1.20); Total Protein 6.8 g/dL (6.2-8.2)
[2022-02-03 20:35] LABS: Hepatitis A Ab, Total Nonreactive (Nonreactive); Hepatitis C IgG Antibody Nonreactive (Nonreactive)
[2022-02-03 22:54] LABS: Basophils % (A) 1.5 %; Eosinophils # (A) 0.09 X 10*3/uL (0.04-0.35); Eosinophils % (A) 0.7 %; HCT 44.9 % (39.6-50.0); HGB 13.6 g/dL (13.0-17.0); Immature Grans, Automated 0.6 %; Lymphocytes # (A) 7.86 X 10*3/uL (0.90-5.00); Lymphocytes % (A) 59.2 %; MCH 27.2 pg (27.0-32.0); MCHC 30.3 g/dL (32.0-37.0); MCV 89.8 fL (80.0-97.0); Mean Platelet Volume 10.3 fL (9.5-12.2); Monocytes # (A) 1.96 X 10*3/uL (0.20-1.00); Monocytes % (A) 14.8 %; NRBC Per 100 WBC 0 /100 WBCS (0.0-0.0); Neutrophils # (A) 3.09 X 10*3/uL (1.80-7.70); Neutrophils % (A) 23.2 %; Platelet Count 345 X 10*3/uL (140-440); RDW 15.5 % (11.5-14.5); WBC 13.28 X 10*3/uL (4.50-10.00)
== END | disposition home or self-care (01) ==
LOC: LABWHC1 14:42
PROVIDERS: ATTEND Internal Medicine Infectious Disease
DX: B18.8 Other chronic viral hepatitis (principal)
CPT/HCPCS: 36415; 80053; 85025; 86140; 86704; 86708; 86803